=== PATIENT | male | born 1940 | race Caucasian/White ===

== ENCOUNTER → 2020-08-01 | Outpatient (CLI) | payer MEDICARE, BC ==
--- NOTE | 2020-08-02 00:04 | MR ---
EXAMINATION TYPE: MR iac wo/w con DATE OF EXAM: 08/01/2020 COMPARISON: 05/28/2017 HISTORY: Vertigo and dizziness CONTRAST: Standard multiplanar, multisequence MRI departmental protocol utilizing 7.0 mL intravenous Gadavist g adolinium contrast. Multiplanar multiecho imaging of the brain and posterior fossa was performed without and with IV cont rast. There is cerebral atrophy. There is no mass effect nor midline shift. There is no sign of intracrania l hemorrhage. There is some thinning of the corpus callosum. Brainstem appears intact. Diffusion imag es show no evidence of an acute infarct. On the T2 and FLAIR images there are scattered areas of incr eased signal at the cassidy-white matter junction of both cerebral hemispheres. Total number is approxim ately 20 and these measure up to 6 mm. This is likely chronic small vessel ischemia. Cerebellum is intact. Brainstem appears intact. There is 1 mm focus of increased signal in the ruba o n the right side on the FLAIR images. The internal auditory canals appear normal. There is no evidence of cerebellopontine angle mass. The acoustic nerve and vestibular nerves appear normal. The contrast images show no pathologic enhancemen t. IMPRESSION: Cerebral atrophy. White matter signal changes most likely related to chronic small vessel ischemia. N o evidence of a cortical infarct. No posterior fossa abnormality at the internal auditory canals. There is a single tiny focus of incre ased signal in the right side of the ruba that is probably tiny lacunar infarct.
== END | disposition home or self-care (01) ==
LOC: RADMRIMAIN 14:26
PROVIDERS: ATTEND Otolaryngology
DX: G31.9 Degenerative disease of nervous system, unspecified (principal); R90.82 White matter disease, unspecified; R93.0 Abnormal findings on diagnostic imaging of skull and head, not elsewhere classified
CPT/HCPCS: 70553; A9585

== ENCOUNTER → 2021-08-03 | Outpatient (CLI) | payer MEDICARE, BC ==
--- NOTE | 2021-08-04 07:20 | US ---
EXAMINATION TYPE: US carotid duplex BILAT DATE OF EXAM: 08/03/2021 COMPARISON: NONE CLINICAL HISTORY: R42 Dizziness. dizziness, headaches EXAM MEASUREMENTS: RIGHT: Peak Systolic Velocity (PSV) cm/sec ----- Right CCA: 103 ----- Right ICA: 157 ----- Right ECA: 174 ICA/CCA ratio: 1.5 RIGHT: End Diastole cm/sec ----- Right CCA: 16.4 ----- Right ICA: 20.5 ----- Right ECA: 0.0 LEFT: Peak Systolic Velocity (PSV) cm/sec ----- Left CCA: 126 ----- Left ICA: 152 ----- Left ECA: 105 ICA/CCA ratio: 1.2 LEFT: End Diastole cm/sec ----- Left CCA: 14.5 ----- Left ICA: 22.7 ----- Left ECA: 0.0 VERTEBRALS (direction of flow): Right Vertebral: Antegrade Left Vertebral: Antegrade Rhythm: Normal Mild to moderate plaque bilateral bifurcations. mildly increased velocities right ICA and right ECA a nd left ICA IMPRESSION: No evidence for hemodynamically significant stenosis. Criteria for Assigning % of Stenosis / Diameter reduction (Estimation based on the indirect measurements of the internal carotid artery velocities (ICA PSV). 1. Normal (no stenosis)=ICA PSV < 125 cm/s: ratio < 2.0: ICA EDV<40 cm/s. 2. Less than 50% stenosis=ICA PSV < 125 cm/s: ratio < 2.0: ICA EDV<40 cm/s. 3. 50 to 69% stenosis=ICA PSV of 125 to 230 cm/s: ration 2.0 ? 4.0: ICA EDV 40-100 cm/s. 4. Greater than 70% stenosis to near occlusion= ICA PSV > 230 cm/s: ratio > 4.0: ICA EDV > 100 cm/s. 5. Near occlusion= ICA PSV velocities may be low or undetectable: variable ratio and ICA EDV. 6. Total occlusion=unable to detect flow.
== END | disposition home or self-care (01) ==
LOC: RADUSWWP 15:40
PROVIDERS: ATTEND Internal Medicine Geriatric Medicine
DX: I65.23 Occlusion and stenosis of bilateral carotid arteries (principal)
CPT/HCPCS: 93880

== ENCOUNTER → 2023-03-22 | Outpatient (CLI) | payer MEDICARE, BC | END | disposition home or self-care (01) | LOC: LABWHC1 13:39 | PROVIDERS: ATTEND Orthopaedic Surgery | DX: Z01.812 Encounter for preprocedural laboratory examination (principal); S32.009A Unspecified fracture of unspecified lumbar vertebra, initial encounter for closed fracture; Z22.322 Carrier or suspected carrier of Methicillin resistant Staphylococcus aureus; X58.XXXA Exposure to other specified factors, initial encounter | CPT/HCPCS: 86850; 86900; 86901; 87070 ==

== ENCOUNTER 2023-03-29 12:10 | Day surgery (SDC) | payer MEDICARE, BC ==
--- NOTE | 2023-03-29 08:33 | P.HPOR ---
History of Present Illness H&P Date: 03/08/23 .D:Date: 02/22/23 : 10:09am .T:Title: [facility] Date of :[birth year] R14 Allergies: Age: 84 year Height: 5'11" Weight: 126 lbs BP:/ BMI: 17.57 kg/m2 Occupation: Retired VAS: 1 CHIEF COMPLAINT: Low back pain DOI: 01/31/23 DOS: n/a Duration of current treatment regiment: n/a HISTORY: Xrays New xrays taken in office Trauma or injury yes patient fell from step onto cement floor and garage at home Work-Related No Pain description aching, sharp. Location posterior Activity Modification yes Hand Dominance right TREATMENTS COMPLETED: 6 weeks of PT completed? Month and Year of last PT date? No Physician directed home exercise completed? No Medications yes List: Aleve Alternative interventions Chiropractic: No Massage therapy: No R.I.C.E: yes Brace: No Injections No RFA: No SUBJECTIVE: Ms. Read presents to the office for an evaluation of her low back pain. Patient reports an aching sharp lumbar pain ongoing for a couple weeks with an onset of 01/31/2023 after patient fell from a stair onto her cement floor and the garage at home. Patient denies any radicular symptoms or numbness or tingling to the bilateral lower extremities. Ms. Read's symptoms are exacerbated with prolonged ambulation, standing, and bending over. Patient reported as increasingly difficult for her to complete many of her daily tasks. Patient denies trialing any other treatment modalities at this time besides heat and ice therapies. Otherwise the patient denies any f/c/sob/cp, no bladder or bowel retention/incontinence, no perineal numbness/tingling, and ambulates independently. The patients' past social, medical, family, surgical history, as well as review of systems, have been reviewed. Please refer to the Neurosurgery History and Physical form that has been scanned in to our electronic medical record system. 14 points review of systems completed and as stated in HPI, all other systems reviewed are negative. Social History: Reviewed, see appropriate section of the chart for details. P3 Family History: Reviewed, see appropriate section of the chart for details. P2 Past Medical History: Reviewed, see appropriate section of the chart for details. P1 Current Medications: Rx: aspirin 81 mg tablet,delayed release Ref: 0 Instructions: take 1 tablet (81 mg) by oral route once daily Rx: biotin Ref: 0 Rx: hydroCHLOROthiazide 25 mg tablet Ref: 0 Instructions: take 1 tablet (25 mg) by oral route once daily Rx: metoprolol tartrate 50 mg tablet Ref: 0 Instructions: take 1 tablet (50 mg) by oral route 2 times per day with meals Rx: metoprolol tartrate 50 mg tablet Ref: 0 Instructions: take 1 tablet (50 mg) by oral route 2 times per day with meals Rx: Norvasc 2.5 mg tablet Ref: 0 Instructions: take 1 tablet (2.5 mg) by oral route once daily Rx: simvastatin 20 mg tablet Ref: 0 Instructions: take 1 tablet (20 mg) by oral route once daily in the evening Rx: Unisom PM Pain Ref: 0 Rx: Vitamin D2 Ref: 0 P1 PHYSICAL EXAMINATION: General: Awake, alert, appropriate for age, in no acute distress. HEENT: No unusual neck masses around region of lateral neck triangle, thyroid, supraclavicular groove Heart: Regular rate and rhythm, normal S1, S2 and no murmur/gallop. Lungs: Clear to auscultation bilaterally with no use of accessory muscles. Extremities: Skin warm and dry without acute lesions, coloration, temperature, skin intact, no tenderness or erythema Integument: Hairy patches: ABSENT Dorsal skin dimples: ABSENT Cafe au lait spots: ABSENT Surgical incisions: n/a Palpation: Please see Pain drawing on Intake sheet for further detail. Midline spinal tenderness: Yes, over the Lumbar region E6 Cervical Tenderness: No E6 Paralumbar tenderness: No E6 Parathoracic tenderness: No E6 Buttocks tenderness: No E6 Sacroilliac Tenderness: No POSTURAL and MUSCULO-SKELETAL EVALUATION: Coronal Balance: NEUTRAL Recumbent testing: Patient is able to lay flat on back Sagittal Balance: NEUTRAL Shoulder Profile: LEVEL Pelvic Girdle: LEVEL Neck ROM: UNRESTRICTED Lumbar ROM: RESTRICTED Shoulder ROM: Symmetrical Hip ROM: Symmetrical Knee ROM: Symmetrical Hands: Normal appearance, symmetrical Feet: Normal appearance, Symmetrical VASCULAR STATUS : LEFT RIGHT Wrist Pulses INTACT INTACT Pedal Pulses (Dors. pedis & post.tibialis) INTACT INTACT Color NORMAL NORMAL Edema Absent Absent NEUROLOGIC EXAMINATION: Mental Status:Awake and alert, fully oriented, with normal attention, concentration and memory, and fluent, appropriate speech. Cranial Nerves: I: Olfactory not tested. II: Visual acuity normal, no visual field deficit noted with confrontation. III,IV: Normal pupillary reflexes & intact extraocular movements without nystagmus. V,: Intact symmetrical facial sensation. VII: Intact symmetrical facial motor movement VIII: Hearing intact. IX,X: Intact gag, swallow, & normal voice. XI: Sternocleidomastoid, trapezius function intact. XII: Tongue midline with normal movements. L'hermitte's Sign: Negative / absent Spurling'Sign: Absent bilaterally. Cubital percussion test: Absent bilaterally. Canales-Tinel sign - Carpal region: Absent bilaterally. Straight Leg Raising: Absent bilaterally. Crossed straight leg raise: negative O8 MOTOR EXAM (0-5/5, N/T Muscle appearance: Symmetrical, without signs of atrophy or dystrophy UPPER EXTREMITY RIGHT LEFT Shoulder Abduction 5/5 5/5 Biceps 5/5 5/5 Triceps 5/5 5/5 Wrist Extension 5/5 5/5 Hand Intrnsics 5/5 5/5 Senior Clinical Consultant 5/5 5/5 Hand and finger dexterity intact bilaterally? yes LOWER EXTREMITY RIGHT LEFT Hip Flexion 5/5 5/5 Knee Extension 5/5 5/5 Knee Flexion 5/5 5/5 Dorsiflexion 5/5 5/5 Plantarflexion 5/5 5/5 EHL 5/5 5/5 FHL 5/5 5/5 Toe heel walk / heel-toe walk intact while maintaining satisfactory balance? yes Squatting/straightening w/o assistance to a min of 60 degree knee flexion? yes Single leg stance: intact Trendelenburg sign negative bilaterally REFLEXES(0-4/2, NT)Upper Ext remityLower Extremity Right 2 2 Left 2 2 Pathological Reflexes RIGHT LEFT Canales's Absent Absent Clonus Absent Absent Babinski Absent Absent Sensory system (0-4, N/T) Test type RU LEONEL RL LL Joint-Position 2 2 2 2 Vibration 2 2 2 2 Pain & LT sense 2 2 2 2 Dermatomal Deficit: None None None None Gait and Functional Evaluation: Ambulatory aids: Independent Romberg's test: Intact bilaterally Steady Gait RADIOGRAPHIC STUDIES: XRay Lumbar Multiview (AP, Lateral, Flexion, Extension) with AP pelvis; 5 views taken at [facility] on 02/22/23: moderate spondylitic and degenerative changes with flattening of the normal lordosis. Multilevel diminished disc height. L3 compression fracture of the superior endplate. Remaining vertebral body heights are preserved. Pelvis: The visualized sacrum and iliac wings are within normal limits. Bilateral hip osteoarthritis noted. [facility] of LumbarSpine: 1. There appears to be fracture involving the anterior superior endplate of L3 with mild superior endplate bone marrow edema. 2. Mild trilevel degenerative disc disease. 3. Central stenosis at L2-3 and left lateral recess stenosis at L3-4. IMPRESSION: It was my pleasure to have seen and examined Dory. I reviewed the patient's clinical syndrome, physical findings, and imaging studies during the appointment today. It is my impression that the patient has a diagnosis of. 1. Lumbar spondylosis 2.L3 compression fracture 3. Mechanical low back pain I outlined the natural course history without intervention and various interventional options. PLAN: Based on my findings I suggest the following course of action: I discussed treatment options with the patient, including operative and non- operative options, and they have elected to proceed with the following surgical procedure: L3 Kyphoplasty The indications, risks, benefits, and alternatives to surgery were discussed with the patient and family at length. Specifically (but not limited to) the risks of infection, stiffness, recurrence of symptoms, need for revision surgery, local numbness, neurovascular injury, and blood clots were discussed. The patient's questions were answered.The decision to proceed was made. Consent will be obtained for the procedure. -Ambulate daily -Take medications as directed -Ice and rest for pain and swelling control. Follow-up: Post procedure Patient Education: (Informational booklet, instructions, etc) given at today's appointment: Yes .ED:Patient Education: Y Plan at next visit:Review patient progress Medications Reviewed: YES In our visit today Ms. Read and I have had a chance to go over my understanding of the patient's current condition, the natural course history without intervention and various interventional options. Questions were invited and answered, and the patient wishes to proceed as outlined above. I will be sure to keep you updated afterMs. Read returns here for further follow-up. Thank you again for your referral. Please do not hesitate to contact me if you have any further questions. Signed and authenticated by: Hamida Gallo MSN, PHOTOGRAPHIC EQUIPMENT ASSEMBLER-C [facility]im[facility] [address] [place] [address] [address] This message is confidential, intended only for the named recipient(s) and may contain information that is privileged or exempt from disclosure under applicable law. If you are not the intended recipient(s), you are notified that the dissemination, distribution or copying of this information is strictly prohibited. If you received this message in error, please notify the sender then delete this message. #Orders: Xray Pelvis #Orders: XrayLumbar Spine, 3v # SIGNED BY Hamida Gallo, SABRA, Nurse Practitioner (STO)03/05/2023 01:41P Past Medical History Past Medical History: Cancer, COPD, GERD/Reflux, Hyperlipidemia, Hypertension, Myocardial Infarction (AR), Osteoarthritis (OA), Thyroid Disorder Additional Past Medical History / Comment(s): colitis , protacatits,skin cancer Last Myocardial Infarction Date:: 2020 History of Any Multi-Drug Resistant Organisms: None Reported Past Surgical History: Appendectomy Additional Past Surgical History / Comment(s): detacted retina rt ,colonoscopy with polyps removed, Past Anesthesia/Blood Transfusion Reactions: No Reported Reaction Smoking Status: Former smoker - Past Family History Brother(s) Family Medical History: Cancer Additional Family Medical History / Comment(s): prostate Medications and Allergies Home Medications Medication Instructions Recorded Confirmed Type Albuterol Nebulized (Conc) 2.5 mg INHALATION Q6H 03/22/23 03/22/23 History [Ventolin Nebulized (Conc)] Albuterol Sulfate [Ventolin HFA] 2 inhalation INHALATION Q4-6H PRN 03/22/23 03/22/23 History Aspirin [Adult Low Dose Aspirin EC] 81 mg PO DAILY 03/22/23 03/22/23 History B-12 (Unk) 1 tab PO DAILY 03/22/23 03/22/23 History Baclofen 10 mg PO TID 03/22/23 03/22/23 History Bumetanide 1 mg PO DAILY 03/22/23 03/22/23 History Clopidogrel [Plavix] 75 mg PO DAILY 03/22/23 03/22/23 History Fluticasone Propionate 1 sprays EA NOSTRIL DAILY 03/22/23 03/22/23 History [Fluticasone Propionate Gonzales 50 mcg Nasal Gonzales] Fluticasone/Umeclidin/Vilanter 1 puff INHALATION DAILY 03/22/23 03/22/23 History [Trelegy Ellipta 200-62.5-25] Folic Acid 1 mg PO DAILY 03/22/23 03/22/23 History HYDROcodone/APAP 5-325MG [Mccune 1 tab PO Q6H 03/22/23 03/22/23 History 5-325] Levothyroxine Sodium [Synthroid] 50 mcg PO DAILY 03/22/23 03/22/23 History Meclizine [Antivert] 25 mg PO BID PRN 03/22/23 03/22/23 History Metoprolol Succinate (ER) [Toprol 100 mg PO DAILY 03/22/23 03/22/23 History Xl] Multivitamins, Thera [Multivitamin 1 tab PO DAILY 03/22/23 03/22/23 History (formulary)] [place](Unk) 1 tab PO DAILY 03/22/23 03/22/23 History Omeprazole 20 mg PO DAILY 03/22/23 03/22/23 History Omeprazole 20 mg PO DAILY 03/22/23 03/22/23 History Potassium Chloride [Klor-Con 10 ER] 1 tab PO DAILY 03/22/23 03/22/23 History Rosuvastatin Calcium 20 mg PO Q48H 03/22/23 03/22/23 History Ubidecarenone [Co Q-10] 30 mg PO DAILY 03/22/23 03/22/23 History Valsartan 320 mg PO DAILY 03/22/23 03/22/23 History Vit D3(Unk) 1 tab PO DAILY 03/22/23 03/22/23 History sulfaSALAzine [Sulfasalazine] 1,000 mg PO BID 03/22/23 03/22/23 History Allergies Allergy/AdvReac Type Severity Reaction Status Date / Time No Known Allergies Allergy Verified 03/22/23 11:42 Physical Examination Osteopathic Statement: *. No significant issues noted on an osteopathic structural exam other than those noted in the History and Physical/Consult.
[~2023-03-29 12:10] MED LIST: ACETAMINOPHEN TAB 500 MG TAB PO PRN; DEXAMETHASONE SOD PHOSPHATE 4 MG/ML 1 ML VIAL IV ONE; GABAPENTIN 300 MG CAP PO PRN; LIDOCAINE 1% (10MG/ML) FOR IV START INTRADERMA PRN; ONDANSETRON 4 MG/2 ML VIAL IVP ONE; ONDANSETRON 4 MG/2 ML VIAL IVP PRN; TRANEXAMIC 1,000 MG/100ML-NACL 1,000 MG in SALINE 1 100ML.BAG IVPB PRN; fentaNYL (PF) 50 MCG/ML 2 ML AMP IV PRN
[2023-03-29] MEDS: LACTATED RINGERS 1,000 ML IV SCH (14:05)
[2023-03-29] MEDS ORDERED: hydrALAZINE HCL 20 MG/ML 1 ML VIAL IVP ONE (14:15)
[2023-03-29] MEDS ORDERED: LIDOCAINE 1% INJ 10MG/ML (20 ML MDV) ONE (14:35)
[2023-03-29] MEDS ORDERED: TRANEXAMIC 1,000 MG/100ML-NACL PREMIX BAG ONE (14:35)
[2023-03-29] MEDS ORDERED: SUCCINYLCHOLINE CHLORIDE 200 MG/10 ML VIAL IV ONE (14:35)
[2023-03-29] MEDS ORDERED: fentaNYL (PF) 50 MCG/ML 2 ML AMP ONE (14:35)
[2023-03-29] MEDS ORDERED: PHENYLEPHRINE-0.9% NACL SYG 1,000 MCG/10 ML SYRINGE ONE (14:35)
[2023-03-29] MEDS ORDERED: PROPOFOL 10 MG/ML 20 ML VIAL IV ONE (14:35)
[2023-03-29] MEDS ORDERED: BUPIVACAINE (PF) 0.25% 30 ML VIAL SQ ONE ×3 (14:42→14:55)
[2023-03-29] MEDS ORDERED: IOPAMIDOL M200 10 ML VIAL MISCELLANE ONE ×2 (14:42→14:55)
--- NOTE | 2023-03-29 15:20 | XR ---
Fluoroscopy History: S32.010A L1 VERTEBRAL COMPRESSION FRACTURE L1 Kyphoplasty. 27 secs. 3 images. DAP=1.2221 Dr. Riddle
--- NOTE | 2023-03-29 15:27 | P.OP ---
Date of Procedure: 03/29/23 Preoperative Diagnosis: 1. L1 vertebral compression fracture 40% compressed 2. Low back pain Postoperative Diagnosis: 1. L1 vertebral compression fracture 40% compressed 2. Low back pain Procedure(s) Performed: 1. L1 vertebral body biopsy with kyphoplasty. Implants: Kemar cement Anesthesia: GETA Surgeon: Massimo Riddle Cupboard Builder #1: Blayne Nunez (CHER Van Was present and assisted with all aspects of the case from positioning to dressing placement) Estimated Blood Loss (ml): 2 IV fluids (ml): 100 Urine output (ml): 0 Pathology: none sent Condition: stable Disposition: PACU Indications for Procedure: 9-year-old male presents with complaints of low back pain after fall. He continues to have low back pain despite conservative treatment. His fund of an L1 vertebral compression fractures 4% compressed with kyphosis. Discussed different nonsurgical and surgical options for the patient. At this time the patient would like to undergo surgical option of kyphoplasty with biopsy. There says risks and benefits of the procedure as outlined in the risk reviewed. He understands the risks and benefits surgery itself. He denies any fevers chills shortness breath or chest pain denies any other issues at this time states he is ready and willing to proceed with the surgery. Description of Procedure: Lumbar (1) Kyphoplasty The patient was seen and examined in the preoperative area. All preoperative protocols were followed. Informed consent was obtained, risks and benefits of the procedure were discussed at length. Risks including bleeding infection damage to the surrounding tissue and risk of reoperation were discussed with the patient. Risk of anesthesia up to and including was discussed with the patient. These are outlined in the risk review. They were willing to accept these risks and all the risks of surgery. The patient was given a weight-based dose of antibiotics in the form of 2 g Ancef. The patient was seen and evaluated by the anesthesia team who deemed them fit for surgery. The site was marked, the patient was willing to proceed with the procedure. The patient was transferred to the operative suite by the Department of anesthesia. They were then drifted off to sleep by the department anesthesia and GETA was performed. The patient tolerated this well. Once confirmation of lines and ventilation the patient was transferred to a prone Simón table very carefully. All bony prominences including wrists, elbows, axilla, chest, hips, and thighs, and feet were padded very well. Special attention was paid to the genitalia, and these were padded accordingly. SCDs were placed on bilateral lower extremities and were connected. Arms were well padded and placed on arm boards up and out in the 90/90 position. Once in position, again we confirmed good ventilation capabilities and that lines were running appropriately. The patients Lumbar spine was then exposed. 1010s were placed outlining the incision site. Standard alcohol was used to clean the incision site and allowed to dry. C-arm was used to needle localize the pedicles at L1 and bio-ngozi the patient and confirm level for incision which was marked with a skin marker. Operative briefing was performed with all teams and everyone in agreement to proceed. The patient was then prepped and draped in a normal sterile fashion. Timeout was then performed, and all parties agreed with the procedure to be performed. Skin segun was made. Jamshitdi was passed into the L1 vertebral body via the pedicle. This was done with biplane fluoroscopy. Once in good position in the body the trochar is removed. Biopsy needle was passed into the body and a biopsy was taken. Drill was then passed and biopsy material taken from drill as well. Curette then used to reduce endplate and create more space. Balloon was then passed an inflated which showed good reduction of endplate on AP and Lateral and confirmed central placement. The cement was then placed and pt remained stable. Good fill of cement was seen without extravasation. Once good fill, the Jamshedi was removed and the wound irrigated. The skin was closed with a simple stitch and dressed with a bandaid. The patient was then transferred off the table back to their hospital bed a- traumatically. They were extubated by the department of anesthesia. They were then transferred to PACU in stable condition having tolerated the procedure with no complications.
--- NOTE | 2023-03-29 16:34 | FL ---
Intraoperative/procedural fluoroscopic services were provided for lumbar L1 kyphoplasty. Total fluoro scopy time is 27 seconds with a total of 3 submitted images to PACS. Total DAP 1.2221 Gycm2. Please see the operative note for further details.
--- NOTE | 2023-03-29 17:35 | P.CRDCN ---
History of Present Illness Consult date: 03/29/23 History of present illness: Cardiology was requested to evaluate the patient on urgent basis postoperatively. Patient is a 83-year-old male who underwent kyphoplasty. Postoperatively an ECG was performed with concerns of possible ST elevations in inferior lead. On my detailed review of ECG he is in sinus rhythm with Q waves in inferior leads and evolving ST changes in inferior leads. These changes are most likely reflective of prior inferior wall MD with possible small aneurysm or dyskinetic inferior wall. 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 He is known to Dr. Mancia. At this time patient is not having any active chest pain chest pressure. He denies any pain is most chin. I feel that patient is not having any acute MD at this time. I would agree with the decision of getting this patient admitted for overnight observation. Obtain CBC, BMP, troponins Past Medical History Past Medical History: Cancer, COPD, GERD/Reflux, Hyperlipidemia, Hypertension, Myocardial Infarction ([place]), Osteoarthritis (OA), Thyroid Disorder Additional Past Medical History / Comment(s): colitis , protacatits,skin cancer Last Myocardial Infarction Date:: 2020 History of Any Multi-Drug Resistant Organisms: None Reported Past Surgical History: Appendectomy Additional Past Surgical History / Comment(s): detacted retina rt ,colonoscopy with polyps removed, Past Anesthesia/Blood Transfusion Reactions: No Reported Reaction Smoking Status: Former smoker - Past Family History Brother(s) Family Medical History: Cancer Additional Family Medical History / Comment(s): prostate Medications and Allergies Home Medications Medication Instructions Recorded Confirmed Type Albuterol Nebulized (Conc) 2.5 mg INHALATION Q6H 03/22/23 03/22/23 History [Ventolin Nebulized (Conc)] Albuterol Sulfate [Ventolin HFA] 2 inhalation INHALATION Q4-6H PRN 03/22/23 History Aspirin [Adult Low Dose Aspirin EC] 81 mg PO DAILY 03/22/23 03/22/23 History B-12 (Unk) 1 tab PO DAILY 03/22/23 03/22/23 History Baclofen 10 mg PO TID 03/22/23 03/22/23 History Bumetanide 1 mg PO DAILY 03/22/23 03/22/23 History Clopidogrel [Plavix] 75 mg PO DAILY 03/22/23 03/22/23 History Fluticasone Propionate 1 sprays EA NOSTRIL DAILY 03/22/23 03/22/23 History [Fluticasone Propionate [place] 50 mcg Nasal [place]] Fluticasone/Umeclidin/Vilanter 1 puff INHALATION DAILY 03/22/23 03/22/23 History [Trelegy Ellipta 200-62.5-25] Folic Acid 1 mg PO DAILY 03/22/23 03/22/23 History HYDROcodone/APAP 5-325MG [[place] 1 tab PO Q6H 03/22/23 03/22/23 History 5-325] Levothyroxine Sodium [Synthroid] 50 mcg PO DAILY 03/22/23 03/22/23 History Meclizine [Antivert] 25 mg PO BID PRN 03/22/23 03/22/23 History Metoprolol Succinate (ER) [Toprol 100 mg PO DAILY 03/22/23 03/22/23 History Xl] Multivitamins, Thera [Multivitamin 1 tab PO DAILY 03/22/23 03/22/23 History (formulary)] [place](Unk) 1 tab PO DAILY 03/22/23 03/22/23 History Omeprazole 20 mg PO DAILY 03/22/23 03/22/23 History Omeprazole 20 mg PO DAILY 03/22/23 03/22/23 History Potassium Chloride [Klor-Con 10 ER] 1 tab PO DAILY 03/22/23 03/22/23 History Rosuvastatin Calcium 20 mg PO Q48H 03/22/23 03/22/23 History Ubidecarenone [Co Q-10] 30 mg PO DAILY 03/22/23 03/22/23 History Valsartan 320 mg PO DAILY 03/22/23 03/22/23 History Vit D3(Unk) 1 tab PO DAILY 03/22/23 03/22/23 History sulfaSALAzine [Sulfasalazine] 1,000 mg PO BID 03/22/23 03/22/23 History HYDROcodone/APAP 7.5-325MG [[place] 1 tab PO Q6HR PRN #12 tab 03/29/23 Rx 7.5-325] Allergies Allergy/AdvReac Type Severity Reaction Status Date / Time No Known Allergies Allergy Verified 03/22/23 11:42 Physical Exam Vitals: Vital Signs Temp Pulse Resp BP BP BP Pulse Ox 03/29/23 16:46 74 16 145/67 93 L 03/29/23 16:31 87 16 119/74 95 03/29/23 16:01 80 16 141/62 93 L 03/29/23 15:44 79 16 140/65 94 L 03/29/23 15:29 79 16 148/67 92 L 03/29/23 15:14 83 14 173/79 94 L 03/29/23 14:20 72 20 164/72 94 L 03/29/23 14:04 212/92 03/29/23 13:40 97.9 F 71 20 212/94 95 Intake and Output 03/29/23 03/29/23 03/29/23 06:59 14:59 22:59 Intake Total 350 100 Balance 350 100 Intake: IV 350 100 Other: Weight 72.7 kg Results Current Medications Generic Name Dose Route Start Last Admin Trade Name Freq PRN Reason Stop Dose Admin Fentanyl Citrate 50 mcg 03/29/23 07:00 Fentanyl (Pf) 50 Mcg/Ml 2 Ml Amp IV 03/29/23 23:00 Q3M PRN Phase I - Pain Control Tranexamic Acid/Sodium 100 mls @ 200 mls/hr 03/29/23 05:00 Chloride 1,000 mg/ IV Solution IVPB 03/30/23 00:01 ONCE PRN Pre-Op Tranexamic Acid/Sodium 100 mls @ 200 mls/hr 03/29/23 05:00 Chloride 1,000 mg/ IV Solution IVPB 03/30/23 00:01 ONCE PRN Pre-Op Lactated Ringer's 1,000 mls @ 20 mls/hr 03/29/23 05:55 03/29/23 14:05 Lactated Ringers IV 04/28/23 05:56 400 mls .Q24H EDIS Administration Lidocaine HCl 0.1 ml 03/29/23 05:55 Lidocaine 1% (10mg/Ml) For Iv Start INTRADERMA 04/28/23 05:56 PER PROTOCOL PRN IV Start Ondansetron HCl 4 mg 03/29/23 07:00 Ondansetron 4 Mg/2 Ml Vial IVP 03/29/23 23:00 ONCE PRN Phase 1 or 2 - Nausea/Vomiting Intake and Output 03/29/23 03/29/23 03/29/23 06:59 14:59 22:59 Intake Total 350 100 Balance 350 100 Intake: IV 350 100 Other: Weight 72.7 kg Patient Weight 03/30/23 06:59 Weight 72.7 kg
[2023-03-29] MEDS ORDERED: FAMOTIDINE 20 MG/2 ML VIAL IVP ONE (17:45)
[2023-03-29 18:01] LABS: Basophils % (A) 0 %; Eosinophils # (A) 0.1 k/uL (0-0.7); Eosinophils % (A) 1 %; HCT 45.7 % (39.0-53.0); HGB 14.7 gm/dL (13.0-17.5); Lymphocytes # (A) 0.5 k/uL (1.0-4.8); Lymphocytes % (A) 7 %; MCH 32.9 pg (25.0-35.0); MCHC 32.3 g/dL (31.0-37.0); Macrocytosis Slight; Mean Platelet Volume 10.9; Monocytes # (A) 0.1 k/uL (0-1.0); Monocytes % (A) 2 %; Neutrophils # (A) 7.2 k/uL (1.3-7.7); Neutrophils % (A) 90 %; Platelet Count 153 k/uL (150-450); RBC 4.48 m/uL (4.30-5.90); RDW 13.4 % (11.5-15.5)
[2023-03-29] MEDS ORDERED: HYDROcodone/APAP 7.5-325MG 1 EACH TAB ONE (18:02)
[2023-03-29] MEDS ORDERED: HYDROcodone/APAP 7.5-325MG 1 EACH TAB PO ONE (18:04)
[2023-03-29 19:43] LABS: ALT 25 U/L (4-49); AST 40 U/L (17-59); African American GFR (CKD) >90 (>60 ml/min/1.73 sqM); Albumin/Globulin Ratio 1.5; Alkaline Phosphatase 83 U/L (38-126); Anion Gap 11 mmol/L; Blood Urea Nitrogen 14 mg/dL (9-20); Calcium 9.2 mg/dL (8.4-10.2); Carbon Dioxide 21 mmol/L (22-30); Chloride 105 mmol/L (98-107); Globulin 2.7 g/dL; Glucose 242 mg/dL (74-99); Non-African American GFR(CKD) >90 (>60 ml/min/1.73 sqM); Potassium 3.9 mmol/L (3.5-5.1); Sodium 137 mmol/L (137-145); Total Bilirubin 0.5 mg/dL (0.2-1.3); Total Protein 6.7 g/dL (6.3-8.2)
[2023-03-29] MEDS ORDERED: MECLIZINE 25 MG TAB PO PRN (20:01)
[2023-03-29] MEDS ORDERED: ALBUTEROL NEBULIZED 2.5 MG/3 ML INHALATION PRN (20:01)
[2023-03-29] MEDS: BACLOFEN 10 MG TAB PO SCH (21:35)
[2023-03-30] MEDS: ALBUTEROL NEBULIZED 2.5 MG/3 ML INHALATION SCH ×4 (01:14→19:12)
[2023-03-30] MEDS: LACTATED RINGERS 1,000 ML IV SCH (06:09)
[2023-03-30] MEDS: LEVOTHYROXINE 50 MCG TAB PO SCH (06:13)
[2023-03-30 07:44] LABS: HGB 13.8 gm/dL (13.0-17.5); MCH 33.7 pg (25.0-35.0); MCHC 32.8 g/dL (31.0-37.0); MCV 102.5 fL (80.0-100.0); Macrocytosis Slight; Mean Platelet Volume 9.8; Platelet Count 160 k/uL (150-450); RDW 13.4 % (11.5-15.5); WBC 8.5 k/uL (3.8-10.6)
[2023-03-30] MEDS ORDERED: LORazepam 2 MG/ML INJ IV PRN (07:53)
[2023-03-30 07:56] LABS: African American GFR (CKD) >90 (>60 ml/min/1.73 sqM); Anion Gap 8 mmol/L; Blood Urea Nitrogen 15 mg/dL (9-20); Calcium 8.8 mg/dL (8.4-10.2); Carbon Dioxide 22 mmol/L (22-30); Chloride 108 mmol/L (98-107); Glucose 93 mg/dL (74-99); Non-African American GFR(CKD) 80 (>60 ml/min/1.73 sqM); Sodium 138 mmol/L (137-145)
--- NOTE | 2023-03-30 07:59 | P.HPIM ---
History of Present Illness This is a pleasant 83 years old male with past medical history of COPD, GERD/Reflux, Hyperlipidemia, Hypertension, Osteoarthritis , hypothyroidism, history of prostatitis He was admitted yesterday from outpatient for orthopedic procedure with Dr. Riddle service and patient underwent L1 vertebral body biopsy with kyphoplasty for L1 vertebral compression fracture with low back pain. Today is postoperative day #1 This morning patient was lying in bed comfortable. He states that he fell on his back about one month earlier and he had a compression fracture of L1, Versed was trying to treat it conservatively but that failed and required surgical intervention with kyphoplasty. After the procedure patient started developing left arm pain about 5/10 and mild central chest pain about 4/10 in severity, both pain areas lasted for about 2 hours and now he denies any chest pain no abdominal or epigastric pain, no arm pain. Also patient denies dyspnea coughing. No vomiting or diarrhea, no urinary symptoms, he had mild headache but no dizziness weakness or numbness. However patient developed transient cramping in both He used to smoke and quit about 45 years ago. He drinks wine 1-2 cups every night. No illicit drugs Patient follows up with Dr. Mancia. He states he had a heart attack about 2 years ago at that time he was placed on Plavix while he was taking baby aspirin 81 mg before. He stopped aspirin Plavix about 7 days prior to surgery. Patient is afebrile, vital signs stable Patient has unremarkable CBC, BMP, liver enzymes. Troponin first one was -0.02, repeat troponin was elevated 0.10. Glucose high at 242 Review of Systems Review of systems CONSTITUTIONAL: No fever, no malaise, no fatigue. HEENT: No recent visual problems or hearing problems. Denied any sore throat. CARDIOVASCULAR: No orthopnea, PND, no palpitations, no syncope. PULMONARY: No shortness of breath, no cough, no hemoptysis. GASTROINTESTINAL: No diarrhea, no nausea, no vomiting, no abdominal pain. Normoactive bowel sounds. NEUROLOGICAL: No headaches, no weakness, no numbness. HEMATOLOGICAL: Denies any bleeding or petechiae. GENITOURINARY: Denies any burning micturition, frequency, or urgency. MUSCULOSKELETAL/RHEUMATOLOGICAL: Denies any joint pain, swelling, or any muscle pain. ENDOCRINE: Denies any polyuria or polydipsia. Past Medical History Past Medical History: Cancer, COPD, GERD/Reflux, Hyperlipidemia, Hypertension, Myocardial Infarction ([place]), Osteoarthritis (OA), Thyroid Disorder Additional Past Medical History / Comment(s): colitis , protacatits,skin cancer Last Myocardial Infarction Date:: 2020 History of Any Multi-Drug Resistant Organisms: None Reported Past Surgical History: Appendectomy Additional Past Surgical History / Comment(s): detacted retina rt ,colonoscopy with polyps removed, Past Anesthesia/Blood Transfusion Reactions: No Reported Reaction Past Psychological History: No Psychological Hx Reported Smoking Status: Former smoker Past Alcohol Use History: Occasional Additional Past Alcohol Use History / Comment(s): quit 45 yrs ago, 2 glasses of wine daily,occasional beer Past Drug Use History: None Reported - Past Family History Brother(s) Family Medical History: Cancer Additional Family Medical History / Comment(s): prostate Medications and Allergies Home Medications Medication Instructions Recorded Confirmed Type Albuterol Nebulized (Conc) 2.5 mg INHALATION Q6H 03/22/23 03/22/23 History [Ventolin Nebulized (Conc)] Albuterol Sulfate [Ventolin HFA] 2 inhalation INHALATION Q4-6H PRN 03/22/23 03/22/23 History Aspirin [Adult Low Dose Aspirin EC] 81 mg PO DAILY 03/22/23 03/22/23 History B-12 (Unk) 1 tab PO DAILY 03/22/23 03/22/23 History Baclofen 10 mg PO TID 03/22/23 03/22/23 History Bumetanide 1 mg PO DAILY 03/22/23 03/22/23 History Clopidogrel [Plavix] 75 mg PO DAILY 03/22/23 03/22/23 History Fluticasone Propionate 1 sprays EA NOSTRIL DAILY 03/22/23 03/22/23 History [Fluticasone Propionate [place] 50 mcg Nasal [place]] Fluticasone/Umeclidin/Vilanter 1 puff INHALATION DAILY 03/22/23 03/22/23 History [Trelegy Ellipta 200-62.5-25] Folic Acid 1 mg PO DAILY 03/22/23 03/22/23 History HYDROcodone/APAP 5-325MG [[place] 1 tab PO Q6H 03/22/23 03/22/23 History 5-325] Levothyroxine Sodium [Synthroid] 50 mcg PO DAILY 03/22/23 03/22/23 History Meclizine [Antivert] 25 mg PO BID PRN 03/22/23 03/22/23 History Metoprolol Succinate (ER) [Toprol 100 mg PO DAILY 03/22/23 03/22/23 History Xl] Multivitamins, Thera [Multivitamin 1 tab PO DAILY 03/22/23 03/22/23 History (formulary)] [place](Unk) 1 tab PO DAILY 03/22/23 03/22/23 History Omeprazole 20 mg PO DAILY 03/22/23 03/22/23 History Omeprazole 20 mg PO DAILY 03/22/23 03/22/23 History Potassium Chloride [Klor-Con 10 ER] 1 tab PO DAILY 03/22/23 03/22/23 History Rosuvastatin Calcium 20 mg PO Q48H 03/22/23 03/22/23 History Ubidecarenone [Co Q-10] 30 mg PO DAILY 03/22/23 03/22/23 History Valsartan 320 mg PO DAILY 03/22/23 03/22/23 History Vit D3(Unk) 1 tab PO DAILY 03/22/23 03/22/23 History sulfaSALAzine [Sulfasalazine] 1,000 mg PO BID 03/22/23 03/22/23 History HYDROcodone/APAP 7.5-325MG [[place] 1 tab PO Q6HR PRN #12 tab 03/29/23 Rx 7.5-325] Allergies Allergy/AdvReac Type Severity Reaction Status Date / Time No Known Allergies Allergy Verified 03/22/23 11:42 Physical Exam Vitals: Vital Signs Temp Pulse Pulse Resp BP BP BP 03/30/23 02:00 98.0 F 71 20 121/62 03/30/23 01:23 72 03/30/23 01:16 74 03/29/23 22:00 74 18 112/58 03/29/23 21:35 83 03/29/23 21:19 68 110/56 03/29/23 21:00 68 20 109/56 03/29/23 20:19 76 114/63 03/29/23 20:00 76 22 109/56 03/29/23 19:50 84 113/57 03/29/23 19:30 84 22 113/57 03/29/23 19:20 79 120/56 03/29/23 19:04 80 114/66 03/29/23 19:00 82 20 114/66 03/29/23 18:49 80 132/62 03/29/23 18:45 80 20 132/62 03/29/23 18:30 83 127/61 03/29/23 18:15 98.2 F 83 20 150/69 03/29/23 18:00 75 18 147/64 03/29/23 17:15 82 16 149/69 03/29/23 16:46 74 16 145/67 03/29/23 16:31 87 16 119/74 03/29/23 16:01 80 16 141/62 03/29/23 15:44 79 16 140/65 03/29/23 15:29 79 16 148/67 03/29/23 15:14 83 14 173/79 03/29/23 14:20 72 20 164/72 03/29/23 14:04 212/92 03/29/23 13:40 97.9 F 71 20 212/94 Pulse Ox 03/30/23 02:00 95 03/30/23 01:23 03/30/23 01:16 03/29/23 22:00 03/29/23 21:35 03/29/23 21:19 91 L 03/29/23 21:00 91 L 03/29/23 20:19 92 L 03/29/23 20:00 92 L 03/29/23 19:50 91 L 03/29/23 19:30 91 L 03/29/23 19:20 92 L 03/29/23 19:04 90 L 03/29/23 19:00 90 L 03/29/23 18:49 90 L 03/29/23 18:45 90 L 03/29/23 18:30 92 L 03/29/23 18:15 93 L 03/29/23 18:00 94 L 03/29/23 17:15 93 L 03/29/23 16:46 93 L 03/29/23 16:31 95 03/29/23 16:01 93 L 03/29/23 15:44 94 L 03/29/23 15:29 92 L 03/29/23 15:14 94 L 03/29/23 14:20 94 L 03/29/23 14:04 03/29/23 13:40 95 Intake and Output 03/29/23 03/29/23 03/30/23 14:59 22:59 06:59 Intake Total 350 150 0 Output Total 100 Balance 350 150 -100 Intake: IV 350 150 Oral 0 Output: Urine 100 Other: Voiding Method Toilet # Voids 2 Weight 72.7 kg 72.7 kg GENERAL: The patient is alert and oriented x3, not in any acute distress. Well developed, well nourished. HEENT: Pupils are round and equally reacting to light. EOMI. No scleral icterus. No conjunctival pallor. Normocephalic, atraumatic. No pharyngeal erythema. No thyromegaly. CARDIOVASCULAR: S1 and S2 present. No murmurs, rubs, or gallops. PULMONARY: Chest is clear to auscultation, no wheezing , no crackles. ABDOMEN: Soft, nontender, nondistended, normoactive bowel sounds. No palpable organomegaly. MUSCULOSKELETAL: No joint swelling or deformity. EXTREMITIES: No cyanosis, clubbing, or pedal edema. NEUROLOGICAL: Gross neurological examination did not reveal any focal deficits. SKIN: No rashes. no petechiae. Results CBC & Chem 7: 03/30/23 07:28 03/29/23 18:56 Labs: Abnormal Lab Results - Last 24 Hours (Table) 03/29/23 03/29/23 03/29/23 Range/Units 17:49 18:56 22:01 MCV 102.0 H (80.0-100.0) fL Lymphocytes # 0.5 L (1.0-4.8) k/uL Carbon Dioxide 21 L (22-30) mmol/L Creatinine 0.65 L (0.66-1.25) mg/dL Glucose 242 H (74-99) mg/dL Troponin I 0.106 H* (0.000-0.034) ng/mL Thrombosis Risk Factor Assmnt - Choose All That Apply Any of the Below Risk Factors Present?: Yes Each Factor Represents 1 point: Abnormal pulmonary function (COPD) Other Risk Factors: Yes Each Risk Factor Represents 3 Points: Age 75 years or older Other congenital or acquired thrombophilia - If yes, enter type in comment: No Thrombosis Risk Factor Assessment Total Risk Factor Score: 4 Thrombosis Risk Factor Assessment Level: Moderate Risk Assessment and Plan Assessment: Postoperative chest pain with mildly elevated troponin L1 vertebral compression fracture with low back pain following trauma one month earlier, status post kyphoplasty on 03/29 Elevated glucose, present admission. Check hemoglobin A1c To rule out diabetes mellitus Mild bilateral leg cramping, resolved Plan: Continue monitoring for troponin Check echocardiogram continue with pain management Cardiology consult Orthopedic team consult Patient on aspirin Plavix at home which can be resumed once cleared by surgery, also we will defer the need for antiplatelet medication to cardiology team Labs and medication were reviewed.. Continue same treatment. Continue with symptomatic treatment. Resume home medication. Monitor labs and vitals. DVT and GI prophylaxis. Further recommendations as per clinical course of the patient DVT prophylaxis: SCD, avoid anticoagulation until cleared by surgery team GI Prophylaxis: Pepcid PT/OT: Pending Prognosis is guarded
[2023-03-30] MEDS: SYMBICORT 80-4.5 MCG INHALER INHALATION SCH ×2 (08:44→19:13)
[2023-03-30] MEDS: IPRATROPIUM 0.5 MG/2.5 ML NEBU INHALATION SCH ×4 (08:45→19:14)
[2023-03-30] MEDS ORDERED: HEPARIN SODIUM 1,000 UN/ML (10ML VL) IV PRN (08:50)
[2023-03-30] MEDS ORDERED: HEPARIN SODIUM 1,000 UN/ML (10ML VL) IV ONE (08:50)
[2023-03-30] MEDS ORDERED: ASPIRIN 81 MG PO SCH (09:00)
[2023-03-30] MEDS ORDERED: CLOPIDOGREL 75 MG TAB PO SCH (09:00)
[2023-03-30] MEDS ORDERED: METOPROLOL SUCCINATE (ER) 100 MG TAB.ER.24H PO SCH ×2 (09:00→21:00)
--- NOTE | 2023-03-30 10:08 | P.PN ---
Progress Note - Text Progress Note Date: 03/30/23 patient seen and examined she is really doing pretty well. Denies any pain in his back. Troponins bumped slightly overnight. Cardiology seeing the patient. BX is okay with heparin and/or Plavix and aspirin for home. Patient is stable from orthopedic standpoint for home. Exam is stable good strength bilateral upper and lower extremities. No sensation deficits. Relatively stable exam. Patient is postop day 1 and L1 kyphoplasty with chest pains, cardiology following ortho stable for discharge
[2023-03-30 10:33] LABS: Partial Thromboplastin Time 31.6 sec (22.0-30.0); Prothrombin Time 11.2 sec (10.0-12.5)
[2023-03-30] MEDS: HYDROcodone/APAP 5-325MG 1 EACH TAB PO PRN (10:35)
[2023-03-30] MEDS: HEPARIN SOD,PORK IN 0.45% NACL 25,000 UNIT in 0.45% NACL 1 250ML.BAG IV SCH (10:43)
[2023-03-30] MEDS: FOLIC ACID 1 MG TAB PO SCH (12:19)
[2023-03-30] MEDS: THIAMINE 100 MG TAB PO SCH (12:19)
[2023-03-30] MEDS: BUMETANIDE 1 MG TAB PO SCH (12:20)
[2023-03-30] MEDS: BACLOFEN 10 MG TAB PO SCH ×4 (12:20→19:55)
[2023-03-30] MEDS: FAMOTIDINE 20 MG/2 ML VIAL IV SCH ×2 (12:24→19:55)
[2023-03-30] MEDS: FLUTICASONE 50MCG/SPRAY NASAL 16GM EA NOSTRIL SCH (12:34)
--- NOTE | 2023-03-30 14:17 | CA ---
Transthoracic Echo Report Name: Alban Rosenthal Age: 83 Gender: M : 1940 Exam Date: 03/30/2023 11:25 Exam Location: [facility] Ht (in): 71 Wt (lb): 160 Ordering Physician: Gustavo Espinosa MD Attending/Referring Phys: Chato Bowers DO [employer] Chyna Patel [facility] Procedure CPT: Indications: Rule out heart disease Cardiac Hx: Technical Quality: Technically difficult study Contrast 1: Lumason Total Dose (mL): 5 Contrast 2: Total Dose (mL): MEASUREMENTS (Male / Female) Normal Values 2D ECHO LV Diastolic Diameter PLAX 5.5 cm 4.2 - 5.9 / 3.9 - 5.3 cm LV Systolic Diameter PLAX 4.4 cm IVS Diastolic Thickness 1.1 cm 0.6 - 1.0 / 0.6 - 0.9 cm LVPW Diastolic Thickness 1.1 cm 0.6 - 1.0 / 0.6 - 0.9 cm LV Relative Wall Thickness 0.4 Ascending Aorta Diameter 3.0 cm M-MODE Aortic Root Diameter MM 3.1 cm LA Systolic Diameter MM 4.4 cm LA Ao Ratio MM 1.4 AV Cusp Separation MM 2.0 cm DOPPLER AV Peak Velocity 98.7 cm/s AV Peak Gradient 3.9 mmHg AV Mean Velocity 74.4 cm/s AV Mean Gradient 2.4 mmHg AV Velocity Time Integral 21.3 cm LVOT Peak Velocity 90.0 cm/s LVOT Peak Gradient 3.2 mmHg LVOT Velocity Time Integral 21.5 cm Mitral E Point Velocity 63.5 cm/s Mitral A Point Velocity 103.0 cm/s Mitral E to A Ratio 0.6 MV Deceleration Time 284.0 ms LV E' Lateral Velocity 6.7 cm/s Mitral E to LV E' Lateral Ratio 9.4 LV E' Septal Velocity 4.5 cm/s Mitral E to LV E' Septal Ratio 14.0 TR Peak Velocity 344.0 cm/s TR Peak Gradient 47.3 mmHg Right Atrial Pressure 3.0 mmHg Pulmonary Artery Systolic Pressu 50.3 mmHg Right Ventricular Systolic Press 50.3 mmHg FINDINGS Left Ventricle Mildly increased left ventricular wall thickness. Left ventricular cavity size normal. Normal left ventricular systolic function with basal inferior hypokinesia. Left ventricular ejection fraction is estimated at 55-60%. Grade I Diastolic dysfunction. Right Ventricle Mild right ventricular dilatation. Moderate pulmonary hypertension. Right Atrium Mild right atrial dilatation. Left Atrium Severe left atrial dilatation. Mitral Valve Mitral valve thickened. Mild mitral annular calcification. Mild mitral regurgitation. Aortic Valve Trileaflet aortic valve. Focal thickening of the aortic valve cusps. No aortic regurgitation. Tricuspid Valve Structurally normal tricuspid valve. [id number] tricuspid regurgitation. Pulmonic Valve Structurally normal pulmonic valve. Moderate pulmonic regurgitation. Pericardium No pericardial effusion. Aorta Normal size aortic root and proximal ascending aorta. CONCLUSIONS Left ventricular ejection fraction is estimated at 55-60%. Basal inferior hypokinesia. Grade I Diastolic dysfunction. Moderate pulmonary hypertension. Mild mitral regurgitation. Wall motion abnormality appears to be chronic Previewed by: Dr Judah Pantoja (Electronically Signed) Final Date: 30 March 2023 14:17
--- NOTE | 2023-03-30 15:31 | US ---
EXAMINATION TYPE: US venous doppler duplex LE DATE OF EXAM: 03/30/2023 9:25 AM Exam done portable COMPARISON: NONE CLINICAL INDICATION: Male, 83 years old with history of leg swelling; Bilateral leg cramping SIDE PERFORMED: Bilateral TECHNIQUE: The lower extremity deep venous system is examined utilizing real time linear array sonog michelle with graded compression, doppler sonography and color-flow sonography. VESSELS IMAGED: Common Femoral Vein Deep Femoral Vein Greater Saphenous Vein * Femoral Vein Popliteal Vein Small Saphenous Vein * Proximal Calf Veins (* superficial vessels) Limited visualization of veins due to shadowing from arterial calcifications Right Leg: Appears negative for DVT Left Leg: Appears negative for DVT IMPRESSION: Grayscale, color doppler, spectral doppler imaging performed of the deep veins of the lo wer extremities. There is normal flow, compressibility, vascular waveforms.
--- NOTE | 2023-03-30 15:49 | P.CRDCN ---
History of Present Illness Consult date: 03/30/23 History of present illness: HISTORY OF PRESENTING ILLNESS 83-year-old with the hospital history of CAD status post cath showing CT of RCA by Dr. Mancia. He also has history of COPD, dyslipidemia, hypertension, osteoarthritis. He was scheduled for an spinal kyphoplasty by Dr. Escalona and and postoperatively an ECG was performed which was concerning of possible change s. We do not have any prior ECG to compare with. For this cardiology was paged. I reviewed ECG and examined the patient at bedside. ECG showed sinus rhythm with Q waves inferiorly with nonspecific ST changes in inferior leads which were mostly corresponding to old [place] Following this patient had troponin levels checked which were mildly elevated with uptrending pattern. He had an echo Which showed a preserved LV function with basal inferior wall hypokinesia. This appeared to be chronic and old. Patient is denying having any chest pain chest pressure or shortness of breath. REVIEW OF SYSTEMS 14 point review of system is negative except what is mentioned above in HPI. PHYSICAL EXAMINATION Vital signs reviewed. Head: Normocephalic. Eyes: Sclerae nonicteric. Neck: Brisk carotid upstroke, no jugular venous distention. Lungs: Clear to auscultation. Heart: Regular rate and rhythm, S1-S2, no S3, no murmur or rub. Abdomen: Soft nontender, positive bowel sounds no organomegaly. Extremities: No edema, intact distal pulses. ASSESSMENT Elevated troponin likely type II NSTEMI. Most likely related to postoperative myocardial injury No reported chest pain or shortness of breath Prior history of CAD with known CT of RCA Status post kyphoplasty Essential hypertension Dyslipidemia COPD PLAN Start aspirin 81 mg and atorvastatin 40 mg Continue IV heparin drip for next 24 hours. Continue losartan 320, metoprolol succinate 100 mg Past Medical History Past Medical History: Cancer, COPD, GERD/Reflux, Hyperlipidemia, Hypertension, Myocardial Infarction (MA), Osteoarthritis (OA), Thyroid Disorder Additional Past Medical History / Comment(s): colitis , protacatits,skin cancer Last Myocardial Infarction Date:: 2020 History of Any Multi-Drug Resistant Organisms: None Reported Past Surgical History: Appendectomy Additional Past Surgical History / Comment(s): detacted retina rt ,colonoscopy with polyps removed, Past Anesthesia/Blood Transfusion Reactions: No Reported Reaction Past Psychological History: No Psychological Hx Reported Smoking Status: Former smoker Past Alcohol Use History: Occasional Additional Past Alcohol Use History / Comment(s): quit 45 yrs ago, 2 glasses of wine daily,occasional beer Past Drug Use History: None Reported - Past Family History Brother(s) Family Medical History: Cancer Additional Family Medical History / Comment(s): prostate Medications and Allergies Home Medications Medication Instructions Recorded Confirmed Type Albuterol Nebulized (Conc) 2.5 mg INHALATION Q6H 03/22/23 03/22/23 History [Ventolin Nebulized (Conc)] Albuterol Sulfate [Ventolin HFA] 2 inhalation INHALATION Q4-6H PRN 03/22/23 03/22/23 History Aspirin [Adult Low Dose Aspirin EC] 81 mg PO DAILY 03/22/23 03/22/23 History B-12 (Unk) 1 tab PO DAILY 03/22/23 03/22/23 History Baclofen 10 mg PO TID 03/22/23 03/22/23 History Bumetanide 1 mg PO DAILY 03/22/23 03/22/23 History Clopidogrel [Plavix] 75 mg PO DAILY 03/22/23 03/22/23 History Fluticasone Propionate 1 sprays EA NOSTRIL DAILY 03/22/23 03/22/23 History [Fluticasone Propionate [place] 50 mcg Nasal [place]] Fluticasone/Umeclidin/Vilanter 1 puff INHALATION DAILY 03/22/23 03/22/23 History [Trelegy Ellipta 200-62.5-25] Folic Acid 1 mg PO DAILY 03/22/23 03/22/23 History HYDROcodone/APAP 5-325MG [[place] 1 tab PO Q6H 03/22/23 03/22/23 History 5-325] Levothyroxine Sodium [Synthroid] 50 mcg PO DAILY 03/22/23 03/22/23 History Meclizine [Antivert] 25 mg PO BID PRN 03/22/23 03/22/23 History Metoprolol Succinate (ER) [Toprol 100 mg PO DAILY 03/22/23 03/22/23 History Xl] Multivitamins, Thera [Multivitamin 1 tab PO DAILY 03/22/23 03/22/23 History (formulary)] [place](Unk) 1 tab PO DAILY 03/22/23 03/22/23 History Omeprazole 20 mg PO DAILY 03/22/23 03/22/23 History Omeprazole 20 mg PO DAILY 03/22/23 03/22/23 History Potassium Chloride [Klor-Con 10 ER] 1 tab PO DAILY 03/22/23 03/22/23 History Rosuvastatin Calcium 20 mg PO Q48H 03/22/23 03/22/23 History Ubidecarenone [Co Q-10] 30 mg PO DAILY 03/22/23 03/22/23 History Valsartan 320 mg PO DAILY 03/22/23 03/22/23 History Vit D3(Unk) 1 tab PO DAILY 03/22/23 03/22/23 History sulfaSALAzine [Sulfasalazine] 1,000 mg PO BID 03/22/23 03/22/23 History HYDROcodone/APAP 7.5-325MG [[place] 1 tab PO Q6HR PRN #12 tab 03/29/23 Rx 7.5-325] Allergies Allergy/AdvReac Type Severity Reaction Status Date / Time No Known Allergies Allergy Verified 03/22/23 11:42 Physical Exam Vitals: Vital Signs Temp Pulse Pulse Resp BP Pulse Ox 03/30/23 15:43 84 03/30/23 15:31 88 03/30/23 14:16 98.5 F 85 16 164/61 95 03/30/23 12:02 80 03/30/23 11:45 84 03/30/23 06:58 98.3 F 77 16 157/74 91 L 03/30/23 02:00 98.0 F 71 20 121/62 95 03/30/23 01:23 72 03/30/23 01:16 74 03/29/23 22:00 74 18 112/58 03/29/23 21:35 83 03/29/23 21:19 68 110/56 91 L 03/29/23 21:00 68 20 109/56 91 L 03/29/23 20:19 76 114/63 92 L 03/29/23 20:00 76 22 109/56 92 L 03/29/23 19:50 84 113/57 91 L 03/29/23 19:30 84 22 113/57 91 L 03/29/23 19:20 79 120/56 92 L 03/29/23 19:04 80 114/66 90 L 03/29/23 19:00 82 20 114/66 90 L 03/29/23 18:49 80 132/62 90 L 03/29/23 18:45 80 20 132/62 90 L 03/29/23 18:30 83 127/61 92 L 03/29/23 18:15 98.2 F 83 20 150/69 93 L 03/29/23 18:00 75 18 147/64 94 L 03/29/23 17:15 82 16 149/69 93 L 03/29/23 16:46 74 16 145/67 93 L 03/29/23 16:31 87 16 119/74 95 03/29/23 16:01 80 16 141/62 93 L Intake and Output 03/30/23 03/30/23 03/30/23 06:59 14:59 22:59 Intake Total 0 Output Total 100 Balance -100 Intake: Oral 0 Output: Urine 100 Other: Voiding Method Toilet # Voids 1 Results 03/30/23 07:28 03/30/23 07:28 Cardiac Enzymes 03/29/23 03/29/23 03/29/23 Range/Units 18:56 18:56 22:01 AST 40 (17-59) U/L Troponin I 0.022 0.106 H* (0.000-0.034) ng/mL 03/30/23 Range/Units 07:28 AST (17-59) U/L Troponin I 0.465 H* (0.000-0.034) ng/mL Coagulation 03/30/23 Range/Units 10:04 PT 11.2 (10.0-12.5) sec APTT 31.6 H (22.0-30.0) sec CBC 03/29/23 03/30/23 Range/Units 17:49 07:28 WBC 8.0 8.5 (3.8-10.6) k/uL RBC 4.48 4.10 L (4.30-5.90) m/uL Hgb 14.7 13.8 (13.0-17.5) gm/dL Hct 45.7 42.0 (39.0-53.0) % Plt Count 153 160 (150-450) k/uL Comprehensive Metabolic Panel 03/29/23 03/30/23 Range/Units 18:56 07:28 Sodium 137 138 (137-145) mmol/L Potassium 3.9 4.0 (3.5-5.1) mmol/L Chloride 105 108 H (98-107) mmol/L Carbon Dioxide 21 L 22 (22-30) mmol/L BUN 14 15 (9-20) mg/dL Creatinine 0.65 L 0.88 (0.66-1.25) mg/dL Glucose 242 H 93 (74-99) mg/dL Calcium 9.2 8.8 (8.4-10.2) mg/dL AST 40 (17-59) U/L ALT 25 (4-49) U/L Alkaline Phosphatase 83 (38-126) U/L Total Protein 6.7 (6.3-8.2) g/dL Albumin 4.0 (3.5-5.0) g/dL Current Medications Generic Name Dose Route Start Last Admin Trade Name Freq PRN Reason Stop Dose Admin Hydrocodone Bitart/Acetaminophen 1 each 03/29/23 20:01 03/30/23 10:35 Hydrocodone/Apap 5-325mg 1 Each Tab PO 1 each Q6HR PRN Administration Pain Albuterol Sulfate 2.5 mg 03/30/23 02:00 03/30/23 11:45 Albuterol Nebulized 2.5 Mg/3 Ml INHALATION 2.5 mg RT-Q6H EDIS Administration Albuterol Sulfate 2.5 mg 03/29/23 20:01 Albuterol Nebulized 2.5 Mg/3 Ml INHALATION RT-Q4H PRN Shortness Of Breath Baclofen 10 mg 03/29/23 22:00 03/30/23 12:23 Baclofen 10 Mg Tab PO Not Given TID EDIS Budesonide/Formoterol Fumarate 2 puff 03/30/23 08:00 03/30/23 08:44 Symbicort 80-4.5 Mcg Inhaler INHALATION Not Given RT-BID EDIS Bumetanide 1 mg 03/30/23 09:00 03/30/23 12:20 Bumetanide 1 Mg Tab PO 1 mg DAILY EDIS Administration Famotidine 20 mg 03/30/23 09:00 03/30/23 12:24 Famotidine 20 Mg/2 Ml Vial IV 20 mg Q12HR EDIS Administration Fluticasone Propionate 1 spray 03/30/23 09:00 03/30/23 12:34 Fluticasone 50mcg/[place] Nasal 16gm EA NOSTRIL 1 spray DAILY EDIS Administration Folic Acid 1 mg 03/30/23 09:00 03/30/23 12:19 Folic Acid 1 Mg Tab PO 1 mg DAILY EDIS Administration Heparin Sodium (Porcine) 0 unit 03/30/23 08:50 Heparin Sodium 1,000 Un/Ml (10ml Vl) IV PER PROTOCOL PRN Low PTT Protocol Lactated Ringer's 1,000 mls @ 20 mls/hr 03/29/23 05:55 03/30/23 06:09 Lactated Ringers IV 04/28/23 05:56 Not Given .Q24H EDIS Heparin Sodium/Sodium Chloride 250 mls @ 8.724 mls/hr 03/30/23 09:00 03/30/23 10:43 25,000 unit/ Sodium Chloride IV 12 units/kg/hr .Q24H EDIS 8.724 mls/hr Administration Protocol 12 UNITS/KG/HR Ipratropium [place] 0.5 mg 03/30/23 08:00 03/30/23 15:30 Ipratropium 0.5 Mg/2.5 Ml Nebu INHALATION 0.5 mg RT-QID EDIS Administration Levothyroxine Sodium 50 mcg 03/30/23 06:30 03/30/23 06:13 Levothyroxine 50 Mcg Tab PO 50 mcg 0630 EDIS Administration Lidocaine HCl 0.1 ml 03/29/23 05:55 Lidocaine 1% (10mg/Ml) For Iv Start INTRADERMA 04/28/23 05:56 PER PROTOCOL PRN IV Start Lorazepam 0.5 mg 03/30/23 07:53 Lorazepam 2 Mg/Ml Inj IV Q6HR PRN Anxiety Meclizine HCl 25 mg 03/29/23 20:01 Meclizine 25 Mg Tab PO BID PRN dizziness Metoprolol Succinate 100 mg 03/30/23 21:00 Metoprolol Succinate (Er) 100 Mg Tab.Er.24h PO HS EDIS Thiamine HCl 100 mg 03/30/23 09:00 03/30/23 12:19 Thiamine 100 Mg Tab PO 100 mg DAILY EDIS Administration Valsartan 320 mg 03/30/23 15:00 Valsartan 160 Mg Tab PO DAILY EDIS Intake and Output 03/30/23 03/30/23 03/30/23 06:59 14:59 22:59 Intake Total 0 Output Total 100 Balance -100 Intake: Oral 0 Output: Urine 100 Other: Voiding Method Toilet # Voids 1 03/30/23 07:28 03/30/23 07:28
[2023-03-30] MEDS: VALSARTAN 160 MG TAB PO SCH (16:29)
[2023-03-31] MEDS: ALBUTEROL NEBULIZED 2.5 MG/3 ML INHALATION SCH ×2 (04:49→09:23)
[2023-03-31] MEDS: LACTATED RINGERS 1,000 ML IV SCH (05:00)
[2023-03-31] MEDS: LEVOTHYROXINE 50 MCG TAB PO SCH (05:59)
[2023-03-31 08:12] VITALS: BP 190/70; RESP 16; TEMP 97.6
[2023-03-31] MEDS: HYDROcodone/APAP 5-325MG 1 EACH TAB PO PRN (08:29)
[2023-03-31] MEDS: THIAMINE 100 MG TAB PO SCH (08:30)
[2023-03-31] MEDS: FAMOTIDINE 20 MG/2 ML VIAL IV SCH (08:30)
[2023-03-31] MEDS: VALSARTAN 160 MG TAB PO SCH (08:30)
[2023-03-31] MEDS: FOLIC ACID 1 MG TAB PO SCH (08:30)
[2023-03-31] MEDS: BACLOFEN 10 MG TAB PO SCH (08:30)
[2023-03-31] MEDS: FLUTICASONE 50MCG/SPRAY NASAL 16GM EA NOSTRIL SCH (08:30)
[2023-03-31] MEDS: BUMETANIDE 1 MG TAB PO SCH (08:30)
[2023-03-31 09:12] LABS: Basophils # (A) 0.04 X 10*3/uL (0.00-0.10); Basophils % (A) 0.6 %; Eosinophils # (A) 0.14 X 10*3/uL (0.04-0.35); Eosinophils % (A) 2.2 %; HCT 41.9 % (39.6-50.0); HGB 13.8 d/dL (13.0-17.0); Lymphocytes # (A) 1.11 X 10*3/uL (0.90-5.00); Lymphocytes % (A) 17.5 %; MCH 33.1 pg (27.0-32.0); MCHC 32.9 d/dL (32.0-37.0); MCV 100.5 FL (80.0-97.0); Mean Platelet Volume 11.8 FL (9.5-12.2); Monocytes # (A) 0.72 X 10*3/uL (0.20-1.00); Monocytes % (A) 11.3 %; NRBC Per 100 WBC 0 X 10*3/uL (0.00-0.01); Neutrophils # (A) 4.32 X 10*3/uL (1.80-7.70); Neutrophils % (A) 67.9 %; Platelet Count 169 X 10*3/uL (140-440); RBC 4.17 X 10*6/uL (4.40-5.60); RDW 13.6 % (11.5-14.5); WBC 6.36 X 10*3/uL (4.50-10.00)
[2023-03-31 09:16] LABS: Blood Urea Nitrogen 13.8 mg/dL (9.0-27.0); Carbon Dioxide 24.1 mmol/L (21.6-31.8); Chloride 104 mmol/L (96-109); Glucose 105 mg/dL (70-110); Potassium 3.9 mmol/L (3.5-5.5); Sodium 141 mmol/L (135-145)
[2023-03-31] MEDS: SYMBICORT 80-4.5 MCG INHALER INHALATION SCH (09:23)
[2023-03-31] MEDS: IPRATROPIUM 0.5 MG/2.5 ML NEBU INHALATION SCH ×2 (09:23→12:31)
[2023-03-31 09:31] VITALS: PULSE 72
[2023-03-31] MEDS: HEPARIN SOD,PORK IN 0.45% NACL 25,000 UNIT in 0.45% NACL 1 250ML.BAG IV SCH (10:14)
--- NOTE | 2023-03-31 10:42 | P.PN ---
Subjective Progress Note Date: 03/31/23 Progress note: Seen and examined at bedside this a.m. Patient denies any active chest pain chest pressure shortness of breath. He is hemodynamics stable. He has received 24 hours of IV heparin therapy HISTORY OF PRESENTING ILLNESS 83-year-old with the hospital history of CAD status post cath showing CT of RCA by Dr. Mancia. He also has history of COPD, dyslipidemia, hypertension, osteoarthritis. He was scheduled for an spinal kyphoplasty by Dr. Mcpherson's and and postoperatively an ECG was performed which was concerning of possible changes. We do not have any prior ECG to compare with. For this cardiology was paged. I reviewed ECG and examined the patient at bedside. ECG showed sinus rhythm with Q waves inferiorly with nonspecific ST changes in inferior leads which were mostly corresponding to old [place] Following this patient had troponin levels checked which were mildly elevated with uptrending pattern. He had an echo Which showed a preserved LV function with basal inferior wall hypokinesia. This appeared to be chronic and old. Patient is denying having any chest pain chest pressure or shortness of breath. REVIEW OF SYSTEMS 14 point review of system is negative except what is mentioned above in HPI. PHYSICAL EXAMINATION Vital signs reviewed. Head: Normocephalic. Eyes: Sclerae nonicteric. Neck: Brisk carotid upstroke, no jugular venous distention. Lungs: Clear to auscultation. Heart: Regular rate and rhythm, S1-S2, no S3, no murmur or rub. Abdomen: Soft nontender, positive bowel sounds no organomegaly. Extremities: No edema, intact distal pulses. ASSESSMENT Elevated troponin likely type II NSTEMI. Most likely related to postoperative myocardial injury No reported chest pain or shortness of breath Prior history of CAD with known CT of RCA Status post kyphoplasty Essential hypertension Dyslipidemia COPD PLAN Incorporating other data with elevated troponins, prior history of CT of RCA, basal inferior hypokinesia on echo with preserved EF, I feel patient did had an episode of postoperative myocardial injury. Patient received 24 hours of IV heparin therapy. We can discontinue IV heparin. Patient is okay to be discharged from cardiac vessel standpoint. I would recommend him to continue aspirin and atorvastatin. Continue losartan 320, metoprolol succinate 100 mg Continue to follow up with Dr. Mancia in 1-2 weeks Okay to be discharged Objective - Vital Signs Vital signs: Vital Signs Temp 97.6 F 03/31/23 07:00 Pulse 72 03/31/23 09:40 Resp 16 03/31/23 07:00 BP 190/70 03/31/23 07:00 Pulse Ox 90 L 03/31/23 07:00 FiO2 Intake & Output 03/30/23 03/31/23 03/31/23 18:59 06:59 18:59 Intake Total 74.736 97.709 Output Total 0 Balance 74.736 97.709 Intake: Intake, IV Titration 74.736 97.709 Amount Heparin Sod,Pork in 0.45% 74.736 97.709 NaCl 25,000 unit In 0.45 % NaCl 1 250ml.bag @ 12 UNITS/KG/HR 8.724 mls/hr IV .Q24H [facility] Rx#: [id number] Output: Emesis 0 Other: Voiding Method Toilet Toilet Toilet # Voids 1 - Labs CBC & Chem 7: 03/31/23 05:32 03/31/23 05:32 Labs: Abnormal Lab Results - Last 24 Hours (Table) 03/30/23 03/31/23 03/31/23 Range/Units 16:41 02:11 05:32 RBC 4.17 L (4.40-5.60) X 10*6/uL MCV 100.5 H (80.0-97.0) FL MCH 33.1 H (27.0-32.0) pg APTT 106.5 H* 54.1 H (22.0-30.0) sec Anion Gap (4.00-12.00) mmol/L 03/31/23 Range/Units 05:32 RBC (4.40-5.60) X 10*6/uL MCV (80.0-97.0) FL MCH (27.0-32.0) pg APTT (22.0-30.0) sec Anion Gap 12.90 H (4.00-12.00) mmol/L
--- NOTE | 2023-03-31 18:12 | P.PN ---
Subjective addendum: I came to see the patient today , but he was already discharged and left the hospital before I have a chance to see the pt or talk to him, the bed side nurse discharged the patient based upon orthopedic team order to discharge the patient (please refer to the discharge order) i called the pt at [phone] and left a message to call back Objective - Vital Signs Vital signs: Vital Signs Temp 97.6 F 03/31/23 07:00 Pulse 72 03/31/23 09:40 Resp 16 03/31/23 07:00 BP 190/70 03/31/23 07:00 Pulse Ox 90 L 03/31/23 07:00 FiO2 Intake & Output 03/30/23 03/31/23 03/31/23 18:59 06:59 18:59 Intake Total 74.736 97.709 Output Total 0 Balance 74.736 97.709 Intake: Intake, IV Titration 74.736 97.709 Amount Heparin Sod,Pork in 0.45% 74.736 97.709 NaCl 25,000 unit In 0.45 % NaCl 1 250ml.bag @ 12 UNITS/KG/HR 8.724 mls/hr IV .Q24H EDIS Rx#: [id number] Output: Emesis 0 Other: Voiding Method Toilet Toilet Toilet # Voids 1 - Labs CBC & Chem 7: 03/31/23 05:32 03/31/23 05:32 Labs: Abnormal Lab Results - Last 24 Hours (Table) 03/30/23 03/31/23 03/31/23 Range/Units 16:41 02:11 05:32 RBC 4.17 L (4.40-5.60) X 10*6/uL MCV 100.5 H (80.0-97.0) FL MCH 33.1 H (27.0-32.0) pg APTT 106.5 H* 54.1 H (22.0-30.0) sec Anion Gap (4.00-12.00) mmol/L 03/31/23 Range/Units 05:32 RBC (4.40-5.60) X 10*6/uL MCV (80.0-97.0) FL MCH (27.0-32.0) pg APTT (22.0-30.0) sec Anion Gap 12.90 H (4.00-12.00) mmol/L
== END 2023-03-31 12:59 | disposition home or self-care (01) ==
LOC: OR 12:10 → 6NMEDSUR 15:05 → OR 03-31 12:59
PROVIDERS: ATTEND Internal Medicine
DX: S32.010A Wedge compression fracture of first lumbar vertebra, initial encounter for closed fracture (principal); J45.909 Unspecified asthma, uncomplicated; K21.9 Gastro-esophageal reflux disease without esophagitis; I10 Essential (primary) hypertension; E78.5 Hyperlipidemia, unspecified; I25.2 Old myocardial infarction; Z85.828 Personal history of other malignant neoplasm of skin; Z90.49 Acquired absence of other specified parts of digestive tract; Z87.891 Personal history of nicotine dependence; W19.XXXA Unspecified fall, initial encounter; Z79.51 Long term (current) use of inhaled steroids; Z79.02 Long term (current) use of antithrombotics/antiplatelets; Z79.890 Hormone replacement therapy
CPT/HCPCS: 94640 ×4; 94664; 97161; 86900; 86901; 80053; 80048 ×2; 84484 ×2; 85025 ×2; 85027; 85610; 85730 ×2; 86850; 83036; 72100; 93970; 22514; C8929; J0360; J1100; J0690; J2405; J3490 ×3; J1644 ×2; Q9950; Q9966; J0665; 93306

== ENCOUNTER 2023-11-20 12:03 | Emergency (ER) | payer MEDICARE, BC ==
[2023-11-20 13:26] VITALS: RESP 18
--- NOTE | 2023-11-20 13:58 | ED ---
Upper Extremity HPI - General Chief Complaint: Extremity Injury, Upper Stated Complaint: Injury to L arm Source: patient, RN notes reviewed, old records reviewed Mode of arrival: ambulatory Limitations: physical limitation - History of Present Illness Initial Comments: 83 male to the ED for complaints of Left wrist pain and swelling patient is left handed. Symptoms times 1 day. Positive injury This is an 83-year-old male to the ER for evaluation of left-sided wrist pain left-sided near thumb pain that started yesterday while putting some stuff into his car. The pain has been significantly increasing in both amount and swelling. No other traumatic injuries noted. Patient has full range of motion of the left hand and wrist MD Complaint: Injury to:: left, wrist, hand -: days(s) Other Extremity Injury: Hand: Left, Wrist: Left Handedness: left Place: outdoors Worsens With: none Context: direct blow Associated Symptoms: denies other symptoms Treatments Prior to Arrival: other (0) - Related Data Home Medications Medication Instructions Recorded Confirmed Albuterol Nebulized (Conc) 2.5 mg INHALATION Q6H 03/22/23 03/22/23 [Ventolin Nebulized (Conc)] Albuterol Sulfate [Ventolin HFA] 2 inhalation INHALATION Q4-6H PRN 03/22/23 03/22/23 Aspirin [Adult Low Dose Aspirin EC] 81 mg PO DAILY 03/22/23 03/22/23 B-12 (Unk) 1 tab PO DAILY 03/22/23 03/22/23 Baclofen 10 mg PO TID 03/22/23 03/22/23 Bumetanide 1 mg PO DAILY 03/22/23 03/22/23 Clopidogrel [Plavix] 75 mg PO DAILY 03/22/23 03/22/23 Fluticasone Propionate 1 sprays EA NOSTRIL DAILY 03/22/23 03/22/23 [Fluticasone Propionate [place] 50 mcg Nasal [place]] Fluticasone/Umeclidin/Vilan[place] 1 puff INHALATION DAILY 03/22/23 03/22/23 [Trelegy Ellipta 200-62.5-25] Folic Acid 1 mg PO DAILY 03/22/23 03/22/23 HYDROcodone/APAP 5-325MG [[place] 1 tab PO Q6H 03/22/23 03/22/23 5-325] Levothyroxine Sodium [Synthroid] 50 mcg PO DAILY 03/22/23 03/22/23 Meclizine [Antivert] 25 mg PO BID PRN 03/22/23 03/22/23 Metoprolol Succinate (ER) [Toprol 100 mg PO DAILY 03/22/23 03/22/23 Xl] Multivitamins, Thera [Multivitamin 1 tab PO DAILY 03/22/23 03/22/23 (formulary)] [place](Unk) 1 tab PO DAILY 03/22/23 03/22/23 Omeprazole 20 mg PO DAILY 03/22/23 03/22/23 Omeprazole 20 mg PO DAILY 03/22/23 03/22/23 Potassium Chloride [Klor-Con 10 ER] 1 tab PO DAILY 03/22/23 03/22/23 Rosuvastatin Calcium 20 mg PO Q48H 03/22/23 03/22/23 Ubidecarenone [Co Q-10] 30 mg PO DAILY 03/22/23 03/22/23 Valsartan 320 mg PO DAILY 03/22/23 03/22/23 Vit D3(Unk) 1 tab PO DAILY 03/22/23 03/22/23 sulfaSALAzine [Sulfasalazine] 1,000 mg PO BID 03/22/23 03/22/23 Previous Rx's Medication Instructions Recorded HYDROcodone/APAP 7.5-325MG [[place] 1 tab PO Q6HR PRN #12 tab 03/29/23 7.5-325] Allergies Allergy/AdvReac Type Severity Reaction Status Date / Time No Known Allergies Allergy Verified 03/22/23 11:42 Review of Systems ROS Statement: Those systems with pertinent positive or pertinent negative responses have been documented in the HPI. ROS Other: All systems not noted in ROS Statement are negative. Past Medical History Past Medical History: Cancer, COPD, GERD/Reflux, Hyperlipidemia, Hypertension, Myocardial Infarction (SD), Osteoarthritis (OA), Thyroid Disorder Additional Past Medical History / Comment(s): colitis , protacatits,skin cancer Last Myocardial Infarction Date:: 2020 History of Any Multi-Drug Resistant Organisms: None Reported Past Surgical History: Appendectomy Additional Past Surgical History / Comment(s): detacted retina rt ,colonoscopy with polyps removed, Past Anesthesia/Blood Transfusion Reactions: No Reported Reaction Past Psychological History: No Psychological Hx Reported Smoking Status: Former smoker Past Alcohol Use History: Occasional Past Drug Use History: None Reported - Past Family History Brother(s) Family Medical History: Cancer Additional Family Medical History / Comment(s): prostate General Exam Limitations: physical limitation General appearance: alert, in no apparent distress Head exam: Present: atraumatic, normocephalic, normal inspection Eye exam: Present: normal appearance, PERRL, EOMI. Absent: scleral icterus, conjunctival injection, periorbital swelling ENT exam: Present: normal exam, mucous membranes moist Neck exam: Present: normal inspection. Absent: tenderness, meningismus, lymphadenopathy Respiratory exam: Present: normal lung sounds bilaterally. Absent: respiratory distress, wheezes, rales, rhonchi, stridor Cardiovascular Exam: Present: regular rate, normal rhythm, normal heart sounds. Absent: systolic murmur, diastolic murmur, rubs, gallop, clicks GI/Abdominal exam: Present: soft, normal bowel sounds. Absent: distended, tenderness, guarding, rebound, rigid Extremities exam: Present: normal inspection, full ROM, normal capillary refill. Absent: tenderness, pedal edema, joint swelling, calf tenderness Back exam: Present: normal inspection Neurological exam: Present: alert, oriented X3, CN II-XII intact Psychiatric exam: Present: normal affect, normal mood Skin exam: Present: warm, dry, intact, normal color. Absent: rash Course Vital Signs 11/20/23 11/20/23 13:21 16:00 Temperature 97.7 F 97.8 F Pulse Rate 66 75 Respiratory 18 18 Rate Blood Pressure 171/82 187/69 O2 Sat by Pulse 96 95 Oximetry - Reevaluation(s) Reevaluation #1: 11/20/23 13:58 QN completed by myself Dr Bedolla Reevaluation #2: 11/20/23 15:47 Symptoms improved here in the ER Reevaluation #3: 11/20/23 15:47 Point of results and questions answered Reevaluation #4: Was pt. sent in by a medical professional or institution (, PA, PHYSICS AND ASTRONOMY PROFESSOR, urgent care, hospital, or jail...) When possible be specific @ -no Did you speak to anyone other than the patient for history (EMS, parent, family, police, friend...)? What history was obtained from this source @ -no Did you review nursing and triage notes (agree or disagree)? Why? @ -agree Are old charts reviewed (outside hosp., previous admission, EMS record, old EKG, old radiological studies, urgent care reports/EKG's, jail records)? Re port findings @ -yes Differential Diagnosis (chest pain, altered mental status, abdominal pain women, abdominal pain men, vaginal bleeding, weakness, fever, dyspnea, syncope, headache, dizziness, GI bleed, back pain, seizure, CVA, palpatations, mental health, musculoskeletal)? @ -prior EKG interpreted by me (3pts min.). @ -no X-rays interpreted by me (1pt min.). @ -yes negative for acute disease CT interpreted by me (1pt min.). @ -no U/S interpreted by me (1pt. min.). @ -no What testing was considered but not performed or refused? (CT, X-rays, U/S, labs)? Why? @ -none What meds were considered but not given or refused? Why? @ -none Did you discuss the management of the patient with other professionals (professionals i.e. , PA, PHYSICS AND ASTRONOMY PROFESSOR, lab, RT, psych nurse, social studies department chair, sales enablement lead, t eacher, labor relations officer, major case detective)? Give summary @ -no Was smoking cessation discussed for >3mins.? @ -no Were there social determinants of health that impacted care today? How? (Homelessness, low income, unemployed, alcoholism, drug addiction, transportation, low edu. Level, literacy, decrease access to med. care, [facility], rehab)? @ -none Was there de-escalation of care discussed even if they declined (Discuss DNR or withdrawal of care, Hospice)? DNR status @ -no What co-morbidities impacted this encounter? (DM, HTN, Smoking, COPD, CAD, Cancer, CVA, ARF, Chemo, Hep., AIDS, mental health diagnosis, sleep apnea, morbid obesity)? @ -none Was patient admitted / discharged? Hospital course, mention meds given and route, prescriptions, significant lab abnormalities, going to OR and other p ertinent info. @ - 83 Male to the ER for evaluation of wrist pain left wrist pain with no acute findings on x-ray. Patient has adequate pain control can be discharged home Discharge Was critical care preformed (if so, how long)? @ -no Undiagnosed new problem with uncertain prognosis? @ -no Drug Therapy requiring intensive monitoring for toxicity (Heparin, Nitro, Insulin, Cardizem)? @ -no Were any procedures done? @ -no Diagnosis/sy finger sprain, finger pain mptom? @ -Wrist pain and contusion Acute, or Chronic, or Acute on Chronic? @ -Acute Uncomplicated (without systemic symptoms) or Complicated (systemic symptoms)? @ -Complicated Side effects of treatment? @ -no Exacerbation, Progression, or Severe Exacerbation? @ -exacerbation Poses a threat to life or bodily function? How? (Chest pain, [place], SD, pneumonia, PE, COPD, DKA, ARF, appy, cholecystitis, CVA, Diverticulitis, Homicidal, Suicidal, threat to staff... and all critical care pts) @ -no Medical Decision Making - Medical Decision Making 83 Male to the ER for evaluation of wrist pain left wrist pain with no acute findings on x-ray. Patient has adequate pain control can be discharged home - Radiology Data Radiology results: report reviewed (Left wrist negative for traumatic injury), image reviewed Disposition Clinical Impression: Right wrist pain Disposition: HOME SELF-CARE Condition: Good Instructions (If sedation given, give patient instructions): Hand Sprain (ED) Is patient prescribed a controlled substance at d/c from ED?: No Referrals: Francisco Barnes MD [Primary Care Provider] - 1-2 days Time of Disposition: 15:30
--- NOTE | 2023-11-20 14:21 | XR ---
EXAMINATION TYPE: XR wrist complete LT DATE OF EXAM: 11/20/2023 2:13 PM CLINICAL INDICATION:Male, 83 years old with history of Pain; [facility] COMPARISON: None TECHNIQUE: XR wrist complete LT; examined in the Frontal, navicular, lateral, and oblique. FINDINGS: No acute osseous pathology, joint dislocation, or joint effusion. No evidence of any soft tissue swelling is seen. Multifocal degeneration changes with joint space narrowing osteophyte format ion. IMPRESSION: 1. No acute osseous pathology. 2. Mild multifocal degeneration with joint space narrowing osteophyte formation.
[2023-11-20] MEDS: Acetaminophen-Codeine 300-30mg TAB PO STA (15:56)
[2023-11-20] MEDS: ACET/COD 300 MG/30 MG STARTER PACK 6 TAB BTL PO STA (15:57)
[2023-11-20 16:02] VITALS: BP 187/69; PULSE 75; TEMP 97.8
== END 2023-11-20 16:02 | disposition home or self-care (01) ==
LOC: EC 12:03
DX: S60.211A Contusion of right wrist, initial encounter (principal); Z87.891 Personal history of nicotine dependence; X58.XXXA Exposure to other specified factors, initial encounter
CPT/HCPCS: 99283

== ENCOUNTER 2024-09-12 15:50 | Inpatient (IN) | payer MEDICARE, BC ==
--- NOTE | 2024-09-12 16:01 | ED ---
SOB HPI - General Chief Complaint: Shortness of Breath Stated Complaint: congestion, cough Time Seen by Provider: 09/12/24 16:00 Source: patient, RN notes reviewed, old records reviewed Mode of arrival: ambulatory Limitations: no limitations - History of Present Illness Initial Comments: This is a 84-year-old male to the ER for evaluation this man presents today for evaluation of severe shortness of breath fevers for a week shortness of breath with exertional dyspnea history of COPD on oxygen just at night. Patient's dyspnea has been increased pulse ox significantly low especially on arrival to the ER off his oxygen in the low 80s. Patient denying any current chest pain but has felt like he has a cold with cough congestion and shortness of breath going on his third or fourth day. No improvement MD Complaint: shortness of breath, cough -: days(s) (4) Severity: severe Severity scale (1-10): 9 Consistency: constant Improves With: rest Worsens With: exertion, movement Known History Of: COPD Context: recent URI, recent illness Associated Symptoms: fever, cough, sputum production Treatments Prior to Arrival: none - Related Data Home Medications Medication Instructions Recorded Confirmed Albuterol Sulfate [Ventolin HFA] 2 puff INHALATION RT-Q4H PRN 03/22/23 09/12/24 Aspirin [Adult Low Dose Aspirin EC] 81 mg PO DAILY 03/22/23 09/12/24 Bumetanide 1 mg PO DAILY 03/22/23 09/12/24 Fluticasone Propionate 2 spr EA NOSTRIL DAILY PRN 03/22/23 09/12/24 [Fluticasone Propionate Chi[place]o 50 mcg Nasal Chi[place]o] Fluticasone/Umeclidin/Vilanter 1 puff INHALATION RT-DAILY 03/22/23 09/12/24 [Trelegy Ellipta 200-62.5-25] Folic Acid 1 mg PO DAILY 03/22/23 09/12/24 Meclizine [Antivert] 25 mg PO TID PRN 03/22/23 09/12/24 Metoprolol Succinate (ER) [Toprol 100 mg PO HS 03/22/23 09/12/24 XL] Omeprazole 20 mg PO DAILY 03/22/23 09/12/24 Potassium Chloride [Klor-Con 10 ER] 1 tab PO TID 03/22/23 09/12/24 sulfaSALAzine 1,000 mg PO BID 03/22/23 09/12/24 Albuterol Inhaler [Ventolin Hfa 2 puff INHALATION RT-HS 09/12/24 09/12/24 Inhaler] Albuterol Nebulized [Ventolin 2.5 mg INHALATION RT-QID PRN 09/12/24 09/12/24 Nebulized] Cholecalciferol [Vitamin D3 (25 25 mcg PO DAILY 09/12/24 09/12/24 Mcg = 1000 Iu)] Cyanocobalamin (Vitamin B-12) 5,000 mcg PO DAILY 09/12/24 09/12/24 [Vitamin B-12] Ezetimibe [Zetia] 10 mg PO HS 09/12/24 09/12/24 Multivit-Min/FA/Lycopen/Lutein 1 tab PO DAILY 09/12/24 09/12/24 [Centrum Silver Tablet] Ubidecarenone [Coenzyme Q10] 200 mg PO DAILY 09/12/24 09/12/24 guaiFENesin 400 mg PO Q6H PRN 09/12/24 09/12/24 Previous Rx's Medication Instructions Recorded Acetaminophen Tab [Tylenol] 650 mg PO Q6HR PRN tab 09/17/24 Apixaban [Eliquis] 5 mg PO BID #60 tab 09/17/24 Atorvastatin [Lipitor] 40 mg PO HS #30 tab 09/17/24 Dapagliflozin Propanediol [Farxiga] 10 mg PO DAILY #30 tab 09/17/24 Fluconazole [Diflucan] 100 mg PO DAILY 7 Days #7 tab 09/17/24 Ipratropium-Albuterol Nebulize 3 ml INHALATION RT-TID #100 each 09/17/24 [Duoneb 0.5 mg-3 mg/3 ml Soln] Ipratropium-Albuterol Nebulize 3 ml INHALATION RT-TID PRN each 09/17/24 [Duoneb 0.5 mg-3 mg/3 ml Soln] Isosorbide Mononitrate ER [Imdur] 15 mg PO DAILY #30 tab 09/17/24 Levothyroxine Sodium [Synthroid] 25 mcg PO DAILY@629 #30 tab 09/17/24 Sacubitril/Valsartan [Entresto 97 1 each PO BID@799,1999 #60 tab 09/17/24 mg-103 mg Tablet] Spironolactone [Aldactone] 25 mg PO DAILY #30 tab 09/17/24 amLODIPine [Norvasc] 5 mg PO DAILY #30 tab 09/17/24 cefuroxime axetiL [Ceftin] 500 mg PO BID 5 Days #10 tab 09/17/24 hydrALAZINE HCL [Apresoline] 25 mg PO QID #120 tab 09/17/24 predniSONE See Taper PO DIRECTED #30 tab 09/17/24 Allergies Allergy/AdvReac Type Severity Reaction Status Date / Time No Known Allergies Allergy Verified 09/12/24 18:53 Review of Systems ROS Statement: Those systems with pertinent positive or pertinent negative responses have been documented in the HPI. ROS Other: All systems not noted in ROS Statement are negative. Past Medical History Past Medical History: Cancer, COPD, GERD/Reflux, Hyperlipidemia, Hypertension, Myocardial Infarction (GA), Osteoarthritis (OA), Thyroid Disorder Additional Past Medical History / Comment(s): colitis , protacatits,skin cancer Last Myocardial Infarction Date:: 2020 History of Any Multi-Drug Resistant Organisms: None Reported Past Surgical History: Appendectomy Additional Past Surgical History / Comment(s): detacted retina rt ,colonoscopy with polyps removed, Past Anesthesia/Blood Transfusion Reactions: No Reported Reaction Past Psychological History: No Psychological Hx Reported Smoking Status: Former smoker Past Alcohol Use History: Occasional Past Drug Use History: None Reported - Past Family History Brother(s) Family Medical History: Cancer Additional Family Medical History / Comment(s): prostate General Exam Limitations: no limitations General appearance: alert, anxious, in distress Head exam: Present: atraumatic, normocephalic, normal inspection Eye exam: Present: normal appearance, PERRL, EOMI. Absent: scleral icterus, conjunctival injection, periorbital swelling ENT exam: Present: normal exam, mucous membranes moist Neck exam: Present: normal inspection. Absent: tenderness, meningismus, lymphadenopathy Respiratory exam: Present: respiratory distress, wheezes, accessory muscle use, decreased breath sounds, prolonged expiratory. Absent: rales, rhonchi, stridor Cardiovascular Exam: Present: normal rhythm, tachycardia, normal heart sounds. Absent: systolic murmur, diastolic murmur, rubs, gallop, clicks GI/Abdominal exam: Present: soft, normal bowel sounds. Absent: distended, tenderness, guarding, rebound, rigid Extremities exam: Present: normal inspection, full ROM, normal capillary refill. Absent: tenderness, pedal edema, joint swelling, calf tenderness Back exam: Present: normal inspection Neurological exam: Present: alert, oriented X3, CN II-XII intact Psychiatric exam: Present: normal affect, normal mood Skin exam: Present: warm, dry, intact, normal color. Absent: rash Course Vital Signs 09/12/24 09/12/24 09/12/24 15:52 16:00 17:46 Temperature 97.5 F L Pulse Rate 106 H 92 Pulse Rate [ Hop Farmer ] Respiratory 18 Rate Blood Pressure 129/77 Blood Pressure [Right Arm] O2 Sat by Pulse 88 L 92 L Oximetry 09/12/24 09/12/24 09/12/24 17:53 20:00 22:00 Temperature Pulse Rate 93 87 83 Pulse Rate [ Hop Farmer ] Respiratory 18 18 Rate Blood Pressure 130/53 131/66 Blood Pressure [Right Arm] O2 Sat by Pulse 95 Oximetry 09/13/24 09/13/24 09/13/24 00:15 03:05 04:25 Temperature Pulse Rate 94 86 111 H Pulse Rate [ Hop Farmer ] Respiratory 18 18 18 Rate Blood Pressure 140/69 137/72 141/86 Blood Pressure [Right Arm] O2 Sat by Pulse 95 93 L 95 Oximetry 09/13/24 09/13/24 09/13/24 06:52 08:00 08:07 Temperature 97.5 F L Pulse Rate 90 105 H Pulse Rate [ 95 Hop Farmer ] Respiratory 18 20 Rate Blood Pressure 150/90 Blood Pressure 154/104 [Right Arm] O2 Sat by Pulse 95 96 Oximetry 09/13/24 09/13/24 09/13/24 08:15 08:18 08:30 Temperature Pulse Rate 120 H Pulse Rate [ 117 H 126 H [place] Farmer ] Respiratory 20 22 Rate Blood Pressure Blood Pressure 154/104 [Right Arm] O2 Sat by Pulse 99 96 Oximetry 09/13/24 09/13/24 09/13/24 08:41 08:45 09:00 Temperature Pulse Rate Pulse Rate [ 216 H 210 H 156 H [place] Farmer ] Respiratory 18 Rate Blood Pressure Blood Pressure 131/98 111/85 [Right Arm] O2 Sat by Pulse 95 Oximetry 09/13/24 09/13/24 09/13/24 09:03 09:15 09:40 Temperature Pulse Rate Pulse Rate [ 203 H 112 H 186 H [place] Farmer ] Respiratory Rate Blood Pressure Blood Pressure 149/79 [Right Arm] O2 Sat by Pulse Oximetry 09/13/24 09/13/24 09/13/24 09:50 10:00 10:07 Temperature Pulse Rate 124 H 198 H Pulse Rate [ 122 H [place] Farmer ] Respiratory 18 20 Rate Blood Pressure 149/94 159/95 Blood Pressure [Right Arm] O2 Sat by Pulse 93 L 92 L Oximetry 09/13/24 09/13/24 09/13/24 10:27 10:45 11:03 Temperature Pulse Rate Pulse Rate [ 135 H 179 H 181 H [place] Farmer ] Respiratory Rate Blood Pressure Blood Pressure [Right Arm] O2 Sat by Pulse Oximetry 09/13/24 09/13/24 09/13/24 11:30 12:00 12:30 Temperature 97.5 F L Pulse Rate Pulse Rate [ 186 H 114 H 93 [place] Farmer ] Respiratory 20 Rate Blood Pressure Blood Pressure 146/94 [Right Arm] O2 Sat by Pulse 95 Oximetry 09/13/24 09/13/24 09/13/24 13:30 14:30 15:30 Temperature Pulse Rate Pulse Rate [ 114 H 95 84 [place] Farmer ] Respiratory Rate Blood Pressure Blood Pressure [Right Arm] O2 Sat by Pulse Oximetry 09/13/24 09/13/24 09/13/24 16:00 20:22 21:55 Temperature 97.6 F 97.8 F 97.6 F Pulse Rate 89 Pulse Rate [ 82 87 Hop Farmer ] Respiratory 18 18 16 Rate Blood Pressure 146/73 Blood Pressure 179/85 162/90 [Right Arm] O2 Sat by Pulse 96 95 94 L Oximetry 09/14/24 09/14/24 09/14/24 00:00 05:59 08:05 Temperature 97.8 F 97.8 F Pulse Rate 85 Pulse Rate [ 100 83 [place] Farmer ] Respiratory 20 18 20 Rate Blood Pressure 152/80 Blood Pressure 179/92 148/95 [Right Arm] O2 Sat by Pulse 92 L 91 L 87 L Oximetry 09/14/24 09/14/24 09/14/24 08:06 08:20 10:00 Temperature Pulse Rate 81 80 92 Pulse Rate [ Hop Farmer ] Respiratory 20 Rate Blood Pressure 174/84 Blood Pressure [Right Arm] O2 Sat by Pulse 94 L Oximetry 09/14/24 09/14/24 09/14/24 11:52 12:00 12:04 Temperature Pulse Rate 91 90 89 Pulse Rate [ Hop Farmer ] Respiratory 20 Rate Blood Pressure 153/69 Blood Pressure [Right Arm] O2 Sat by Pulse 92 L Oximetry 09/14/24 09/14/24 09/14/24 12:48 13:56 14:30 Temperature 97.9 F Pulse Rate 126 H 112 H 85 Pulse Rate [ Hop Farmer ] Respiratory 20 20 Rate Blood Pressure 185/76 155/76 Blood Pressure [Right Arm] O2 Sat by Pulse 93 L 93 L Oximetry 09/14/24 09/14/24 09/14/24 16:00 18:29 18:38 Temperature 97.6 F Pulse Rate 80 77 77 Pulse Rate [ Hop Farmer ] Respiratory 20 Rate Blood Pressure 153/79 Blood Pressure [Right Arm] O2 Sat by Pulse 92 L Oximetry 09/14/24 22:50 Temperature 97.8 F Pulse Rate 78 Pulse Rate [ Hop Farmer ] Respiratory 19 Rate Blood Pressure 154/72 Blood Pressure [Right Arm] O2 Sat by Pulse 93 L Oximetry - Reevaluation(s) Reevaluation #1: 09/12/24 17:40 Medical records reviewed Reevaluation #2: 09/12/24 17:41 Patient symptoms relatively unchanged here in the ER Still short of breath Reevaluation #3: 09/12/24 17:41 Patient informed of results questions answered Reevaluation #4: Was pt. sent in by a medical professional or institution (, PA, RADIAL DRILL OPERATOR, urgent care, hospital, or intermediate...) When possible be specific @ -no Did you speak to anyone other than the patient for history (EMS, parent, family, police, friend...)? What history was obtained from this source @ -no Did you review nursing and triage notes (agree or disagree)? Why? @ -agree Are old charts reviewed (outside hosp., previous admission, EMS record, old EKG, old radiological studies, urgent care reports/EKG's, intermediate records)? Report findings @ -yes Differential Diagnosis (chest pain, altered mental status, abdominal pain women, abdominal pain men, vaginal bleeding, weakness, fever, dyspnea, syncope, headache, dizziness, GI bleed, back pain, seizure, CVA, palpatations, mental health, musculoskeletal)? @ -prior EKG interpreted by me (3pts min.). @ -yes X-rays interpreted by me (1pt min.). @ -yes negative for acute disease CT interpreted by me (1pt min.). @ -no U/S interpreted by me (1pt. min.). @ -no What testing was considered but not performed or refused? (CT, X-rays, U/S, labs)? Why? @ -none What meds were considered but not given or refused? Why? @ -none Did you discuss the management of the patient with other professionals (professionals i.e. , PA, RADIAL DRILL OPERATOR, lab, RT, psych nurse, social media intern, sheeter waxer operator, teacher, civil preparedness training officer, caseworker)? Give summary @ -no Was smoking cessation discussed for >3mins.? @ -no Was critical care preformed (if so, how long)? @ -yes31 Were there social determinants of health that impacted care today? How? (Homelessness, low income, unemployed, alcoholism, drug addiction, transportation, low edu. Level, literacy, decrease access to med. care, long term, rehab)? @ -none Was there de-escalation of care discussed even if they declined (Discuss DNR or withdrawal of care, Hospice)? DNR status @ -no What co-morbidities impacted this encounter? (DM, HTN, Smoking, COPD, CAD, Cancer, CVA, ARF, Chemo, Hep., AIDS, mental health diagnosis, sleep apnea, morbid obesity)? @ -none Was patient admitted / discharged? Hospital course, mention meds given and route, prescriptions, significant lab abnormalities, going to OR and other pertinent info. @ - 84 male to the ER for evaluation patient presents today for evaluation of shortness of breath history of COPD hypoxia significant, shortness of breath here in the ER no chest pain, patient does have pneumonia on x-ray RSV on viral testing and severe COPD Admitted Undiagnosed new problem with uncertain prognosis? @ -no Drug Therapy requiring intensive monitoring for toxicity (Heparin, Nitro, In sulin, Cardizem)? @ -no Were any procedures done? @ -no Diagnosis/symptom? @ -A-fib with RVR, RSV, pneumonia COPD with hypoxia Acute, or Chronic, or Acute on Chronic? @ -Acute Uncomplicated (without systemic symptoms) or Complicated (systemic symptoms)? @ -Complicated Side effects of treatment? @ -no Exacerbation, Progression, or Severe Exacerbation? @ -exacerbation Poses a threat to life or bodily function? How? (Chest pain, [place], GA, pneumonia, PE, COPD, DKA, ARF, appy, cholecystitis, CVA, Diverticulitis, Homicidal, Suicidal, threat to staff... and all critical care pts) @ -yes significant respiratory distress Reevaluation #5: Differential Dyspnea: Coronary syndrome, arrhythmia, tamponade, asthma, COPD, pulmonary embolism, pneumonia, pneumothorax, pulmonary effusion, anaphylaxis, diabetic ketoacidosis, flailed chest, pulmonary contusion, diaphragmatic rupture, anemia, neuromuscular, this is not meant to be an all-inclusive list. - Consultations Consultation #1: Spoke with [facility] who agrees to admit this patient Medical Decision Making - Medical Decision Making 84 male to the ER for evaluation patient presents today for evaluation of shortness of breath history of COPD hypoxia significant, shortness of breath here in the ER no chest pain, patient does have pneumonia on x-ray RSV on viral testing and severe COPD - Lab Data Result diagrams: 09/20/24 07:43 09/20/24 07:43 Lab Results 09/12/24 09/12/24 09/12/24 Range/Units 16:00 16:01 16:01 WBC 11.9 H (3.8-10.6) k/uL RBC 4.71 (4.30-5.90) m/uL Hgb 15.8 (13.0-17.5) gm/dL Hct 48.1 (39.0-53.0) % MCV 102.3 H (80.0-100.0) fL MCH 33.5 (25.0-35.0) pg MCHC 32.8 (31.0-37.0) g/dL RDW 12.2 (11.5-15.5) % Plt Count 161 (150-450) k/uL MPV 10.5 Neutrophils % 84 % Lymphocytes % 7 % Monocytes % 7 % Eosinophils % 0 % Basophils % 0 % Neutrophils # 10.0 H (1.3-7.7) k/uL Lymphocytes # 0.8 L (1.0-4.8) k/uL Monocytes # 0.9 (0-1.0) k/uL Eosinophils # 0.0 (0-0.7) k/uL Basophils # 0.0 (0-0.2) k/uL PT 10.9 (10.0-12.5) sec INR 1.0 (<1.2) APTT 33.7 H (22.0-30.0) sec Sodium (137-145) mmol/L Potassium (3.5-5.1) mmol/L Chloride (98-107) mmol/L Carbon Dioxide (22-30) mmol/L Anion Gap mmol/L BUN (9-20) mg/dL Creatinine (0.66-1.25) mg/dL Est GFR (CKD-EPI)AfAm (>60 ml/min/1.73 sqM) Est GFR (CKD-EPI)NonAf (>60 ml/min/1.73 sqM) Glucose (74-99) mg/dL Lactic Ac Sepsis Rflx Plasma Lactic Acid [place] (0.7-2.0) mmol/L Calcium (8.4-10.2) mg/dL Magnesium (1.6-2.3) mg/dL Total Bilirubin (0.2-1.3) mg/dL AST (17-59) U/L ALT (4-49) U/L Alkaline Phosphatase (38-126) U/L Troponin I (0.000-0.034) ng/mL NT-Pro-B Natriuret Pep pg/mL Total Protein (6.3-8.2) g/dL Albumin (3.5-5.0) g/dL Influenza Type A (PCR) Not Detected (Not Detectd) Influenza Type B (PCR) Not Detected (Not Detectd) RSV (PCR) Detected A (Not Detectd) SARS-CoV-2 (PCR) Not Detected (Not Detectd) 09/12/24 09/12/24 09/12/24 Range/Units 16:01 16:01 16:01 WBC (3.8-10.6) k/uL RBC (4.30-5.90) m/uL Hgb (13.0-17.5) gm/dL Hct (39.0-53.0) % MCV (80.0-100.0) fL MCH (25.0-35.0) pg MCHC (31.0-37.0) g/dL RDW (11.5-15.5) % Plt Count (150-450) k/uL MPV Neutrophils % % Lymphocytes % % Monocytes % % Eosinophils % % Basophils % % Neutrophils # (1.3-7.7) k/uL Lymphocytes # (1.0-4.8) k/uL Monocytes # (0-1.0) k/uL Eosinophils # (0-0.7) k/uL Basophils # (0-0.2) k/uL PT (10.0-12.5) sec INR (<1.2) APTT (22.0-30.0) sec Sodium 135 L (137-145) mmol/L Potassium 4.3 (3.5-5.1) mmol/L Chloride 96 L (98-107) mmol/L Carbon Dioxide 27 (22-30) mmol/L Anion Gap 12 mmol/L BUN 17 (9-20) mg/dL Creatinine 0.92 (0.66-1.25) mg/dL Est GFR (CKD-EPI)AfAm 89 (>60 ml/min/1.73 sqM) Est GFR (CKD-EPI)NonAf 77 (>60 ml/min/1.73 sqM) Glucose 110 H (74-99) mg/dL Lactic Ac Sepsis Rflx Plasma Lactic Acid [place] 2.2 H* (0.7-2.0) mmol/L Calcium 10.0 (8.4-10.2) mg/dL Magnesium 1.8 (1.6-2.3) mg/dL Total Bilirubin 1.8 H (0.2-1.3) mg/dL AST 59 (17-59) U/L ALT 34 (4-49) U/L Alkaline Phosphatase 79 (38-126) U/L Troponin I 0.037 H* (0.000-0.034) ng/mL NT-Pro-B Natriuret Pep 4780 pg/mL Total Protein 7.6 (6.3-8.2) g/dL Albumin 4.5 (3.5-5.0) g/dL Influenza Type A (PCR) (Not Detectd) Influenza Type B (PCR) (Not Detectd) RSV (PCR) (Not Detectd) SARS-CoV-2 (PCR) (Not Detectd) 09/12/24 Range/Units 16:42 WBC (3.8-10.6) k/uL RBC (4.30-5.90) m/uL Hgb (13.0-17.5) gm/dL Hct (39.0-53.0) % MCV (80.0-100.0) fL MCH (25.0-35.0) pg MCHC (31.0-37.0) g/dL RDW (11.5-15.5) % Plt Count (150-450) k/uL MPV Neutrophils % % Lymphocytes % % Monocytes % % Eosinophils % % Basophils % % Neutrophils # (1.3-7.7) k/uL Lymphocytes # (1.0-4.8) k/uL Monocytes # (0-1.0) k/uL Eosinophils # (0-0.7) k/uL Basophils # (0-0.2) k/uL PT (10.0-12.5) sec INR (<1.2) APTT (22.0-30.0) sec Sodium (137-145) mmol/L Potassium (3.5-5.1) mmol/L Chloride (98-107) mmol/L Carbon Dioxide (22-30) mmol/L Anion Gap mmol/L BUN (9-20) mg/dL Creatinine (0.66-1.25) mg/dL Est GFR (CKD-EPI)AfAm (>60 ml/min/1.73 sqM) Est GFR (CKD-EPI)NonAf (>60 ml/min/1.73 sqM) Glucose (74-99) mg/dL Lactic Ac Sepsis Rflx Y Plasma Lactic Acid [place] (0.7-2.0) mmol/L Calcium (8.4-10.2) mg/dL Magnesium (1.6-2.3) mg/dL Total Bilirubin (0.2-1.3) mg/dL AST (17-59) U/L ALT (4-49) U/L Alkaline Phosphatase (38-126) U/L Troponin I (0.000-0.034) ng/mL NT-Pro-B Natriuret Pep pg/mL Total Protein (6.3-8.2) g/dL Albumin (3.5-5.0) g/dL Influenza Type A (PCR) (Not Detectd) Influenza Type B (PCR) (Not Detectd) RSV (PCR) (Not Detectd) SARS-CoV-2 (PCR) (Not Detectd) - EKG Data -: EKG Interpreted by Me (EKG is A-fib with RVR 106 QRS 114 QTc 412) - Radiology Data Radiology results: report reviewed (Chest x-ray positive for pneumonia), image reviewed Critical Care Time Critical Care Time: Yes Total Critical Care Time: 31 Disposition Clinical Impression: Acute exacerbation of chronic obstructive pulmonary disease, Community acquired pneumonia, RSV bronchiolitis, Atrial fibrillation with RVR Disposition: ADMITTED IP TO THIS HOSP Condition: Serious Is patient prescribed a controlled substance at d/c from ED?: No Time of Disposition: 17:00
[2024-09-12 16:33] LABS: Basophils % (A) 0 %; Eosinophils % (A) 0 %; HCT 48.1 % (39.0-53.0); HGB 15.8 gm/dL (13.0-17.5); Lymphocytes # (A) 0.8 k/uL (1.0-4.8); Lymphocytes % (A) 7 %; MCH 33.5 pg (25.0-35.0); MCHC 32.8 g/dL (31.0-37.0); MCV 102.3 fL (80.0-100.0); Mean Platelet Volume 10.5; Monocytes # (A) 0.9 k/uL (0-1.0); Monocytes % (A) 7 %; Neutrophils % (A) 84 %; Platelet Count 161 k/uL (150-450); RBC 4.71 m/uL (4.30-5.90); RDW 12.2 % (11.5-15.5); WBC 11.9 k/uL (3.8-10.6)
[2024-09-12 16:43] LABS: ALT 34 U/L (4-49); African American GFR (CKD) 89 (>60 ml/min/1.73 sqM); Albumin 4.5 g/dL (3.5-5.0); Anion Gap 12 mmol/L; Blood Urea Nitrogen 17 mg/dL (9-20); Carbon Dioxide 27 mmol/L (22-30); Chloride 96 mmol/L (98-107); Glucose 110 mg/dL (74-99); Non-African American GFR(CKD) 77 (>60 ml/min/1.73 sqM); Partial Thromboplastin Time 33.7 sec (22.0-30.0); Prothrombin Time 10.9 sec (10.0-12.5); Sodium 135 mmol/L (137-145); Total Bilirubin 1.8 mg/dL (0.2-1.3); Total Protein 7.6 g/dL (6.3-8.2)
[2024-09-12] MEDS: KETOROLAC 15 MG/ML 1 ML VIAL IVP STA (16:44)
[2024-09-12] MEDS: methylPREDNISolone SOD SUCCI 125 MG/2 ML VIAL IV STA (16:45)
[2024-09-12] MEDS: SODIUM CHLORIDE 0.9% 1,000 ML IV ONE (16:46)
[2024-09-12] MEDS: SODIUM CHLORIDE 0.9% 1,000 ML IV SCH ×2 (16:47→18:06)
[2024-09-12 16:51] LABS: NT-Pro-B-Type Natriuretic Pept 4780 pg/mL
--- NOTE | 2024-09-12 16:55 | XR ---
EXAMINATION TYPE: XR chest 2V DATE OF EXAM: 09/12/2024 4:36 PM COMPARISON: None. CLINICAL INDICATION: Male, 84 years old with history of difficulty breathing: Shortness of breath TECHNIQUE: XR chest 2V views of the chest are obtained. FINDINGS: Scattered senescent parenchymal changes noted. Hyperinflation compatible with COPD. Correlate for a vague infiltrate within the periphery of the left midlung zone. No evidence for atele ctasis. Heart size is stable. Mediastinal structures are stable and grossly unremarkable. No evidence for hilar prominence. Degenerative changes dorsal spine. IMPRESSION: 1. Correlate for a vague infiltrate within the periphery of the left midlung zone. [facility], , 09/12/2024 4:52 PM
[2024-09-12 17:08] LABS: Influenza A Not Detected (Not Detectd); Influenza B Not Detected (Not Detectd); RSV Detected (Not Detectd)
[2024-09-12 17:14] LABS: AST 59 U/L (17-59); Alkaline Phosphatase 79 U/L (38-126); Magnesium 1.8 mg/dL (1.6-2.3); Potassium 4.3 mmol/L (3.5-5.1)
[2024-09-12] MEDS: ACETAMINOPHEN IV (For NPO) 1,000 MG in EMPTY BAG 1 BAG IVPB STA (17:35)
[2024-09-12] MEDS ORDERED: ONDANSETRON 4 MG/2 ML VIAL IVP PRN (17:37)
[2024-09-12] MEDS ORDERED: ACETAMINOPHEN TAB 325 MG TAB PO PRN (17:37)
[2024-09-12] MEDS ORDERED: NALOXONE 0.4 MG/ML 1 ML VIAL IV PRN (17:37)
[2024-09-12] MEDS: IPRATROPIUM-ALBUTEROL 3 ML NEB INHALATION STA ×2 (17:44→19:00)
[2024-09-12] MEDS: LORazepam 1 MG TAB PO STA (18:06)
[2024-09-12] MEDS: AZITHROMYCIN 500 MG in SODIUM CHLORIDE 0.9% 250 ML IVPB STA (19:08)
[2024-09-13] MEDS: methylPREDNISolone SOD SUCCI 125 MG/2 ML VIAL IV SCH (00:08)
--- NOTE | 2024-09-13 00:11 | P.HPIM ---
History of Present Illness H&P Date: 09/12/24 Chief Complaint: Shortness of breath 84-year-old male, history of COPD, hypertension, hyperlipidemia, hypothyroidism, CAD/history of [place], presents to the ER for evaluation this man presents today for evaluation of severe shortness of breath fevers for a week shortness of breath with exertional dyspnea history of COPD on oxygen just at night. Patient's dyspnea has been increased pulse ox significantly low especially on arrival to the ER off his oxygen in the low 80s. Patient denying any current chest pain but has felt like he has a cold with cough congestion and shortness of breath going on his third or fourth day. No improvement Blood work completed in ED reveals a WBC of 11.9, hemoglobin of 15.8 and platelet count of 161, sodium 135, potassium 4.3, BUNs/creatinine of 17/0.92, lactic acid elevated at 2.2 and troponin is elevated at 0.037, BNP of 4780 Viral screen is positive for RSV PCR Chest x-ray reveals infiltrate within the periphery of the left midlung zone Review of Systems REVIEW OF SYSTEMS: CONSTITUTIONAL: No fever, no malaise, no fatigue. HEENT: No recent visual problems or hearing problems. Denied any sore throat. CARDIOVASCULAR: No chest pain, orthopnea, PND, no palpitations, no syncope. PULMONARY: No shortness of breath, no cough, no hemoptysis. GASTROINTESTINAL: No diarrhea, no nausea, no vomiting, no abdominal pain. NEUROLOGICAL: No headaches, no weakness, no numbness. HEMATOLOGICAL: Denies any bleeding or petechiae. GENITOURINARY: Denies any burning micturition, frequency, or urgency. MUSCULOSKELETAL/RHEUMATOLOGICAL: Denies any joint pain, swelling, or any muscle pain. ENDOCRINE: Denies any polyuria or polydipsia. The rest of the 14-point review of systems is negative. Past Medical History Past Medical History: Cancer, COPD, GERD/Reflux, Hyperlipidemia, Hypertension, Myocardial Infarction ([place]), Osteoarthritis (OA), Thyroid Disorder Additional Past Medical History / Comment(s): colitis , protacatits,skin cancer Last Myocardial Infarction Date:: 2020 History of Any Multi-Drug Resistant Organisms: None Reported Past Surgical History: Appendectomy Additional Past Surgical History / Comment(s): detacted retina rt ,colonoscopy with polyps removed, Past Anesthesia/Blood Transfusion Reactions: No Reported Reaction Past Psychological History: No Psychological Hx Reported Smoking Status: Former smoker Past Alcohol Use History: Occasional Past Drug Use History: None Reported - Past Family History Brother(s) Family Medical History: Cancer Additional Family Medical History / Comment(s): prostate Medications and Allergies Home Medications Medication Instructions Recorded Confirmed Type Albuterol Sulfate [Ventolin HFA] 2 puff INHALATION RT-Q4H PRN 03/22/23 09/12/24 History Aspirin [Adult Low Dose Aspirin EC] 81 mg PO DAILY 03/22/23 09/12/24 History Bumetanide 1 mg PO DAILY 03/22/23 09/12/24 History Clopidogrel [Plavix] 75 mg PO DAILY 03/22/23 09/12/24 History Fluticasone Propionate 2 spr EA NOSTRIL DAILY PRN 03/22/23 09/12/24 History [Fluticasone Propionate [place] 50 mcg Nasal [place]] Fluticasone/Umeclidin/Vilanter 1 puff INHALATION RT-DAILY 03/22/23 09/12/24 History [Trelegy Ellipta 200-62.5-25] Folic Acid 1 mg PO DAILY 03/22/23 09/12/24 History Levothyroxine Sodium [Synthroid] 50 mcg PO DAILY 03/22/23 09/12/24 History Meclizine [Antivert] 25 mg PO TID PRN 03/22/23 09/12/24 History Metoprolol Succinate (ER) [Toprol 100 mg PO HS 03/22/23 09/12/24 History Xl] Omeprazole 20 mg PO DAILY 03/22/23 09/12/24 History Potassium Chloride [Klor-Con 10 ER] 1 tab PO TID 03/22/23 09/12/24 History Valsartan 320 mg PO DAILY 03/22/23 09/12/24 History sulfaSALAzine [Sulfasalazine] 1,000 mg PO BID 03/22/23 09/12/24 History Albuterol Inhaler [Ventolin Hfa 2 puff INHALATION RT-HS 09/12/24 09/12/24 History Inhaler] Albuterol Nebulized [Ventolin 2.5 mg INHALATION RT-QID PRN 09/12/24 09/12/24 History Nebulized] Cholecalciferol [Vitamin D3 (25 25 mcg PO DAILY 09/12/24 09/12/24 History Mcg = 1000 Iu)] Cyanocobalamin (Vitamin B-12) 5,000 mcg PO DAILY 09/12/24 09/12/24 History [Vitamin B-12] Ezetimibe [Zetia] 10 mg PO HS 09/12/24 09/12/24 History Multivit-Min/FA/Lycopen/Lutein 1 tab PO DAILY 09/12/24 09/12/24 History [Centrum Silver Tablet] [place]-3 600mg 1 cap PO DAILY 09/12/24 09/12/24 History Rosuvastatin [Crestor] 10 mg PO Q2D 09/12/24 09/12/24 History Ubidecarenone [Coenzyme Q10] 200 mg PO DAILY 09/12/24 09/12/24 History guaiFENesin 400 mg PO Q6H PRN 09/12/24 09/12/24 History Allergies Allergy/AdvReac Type Severity Reaction Status Date / Time No Known Allergies Allergy Verified 09/12/24 18:53 Physical Exam Vitals: Vital Signs Temp Pulse Resp BP Pulse Ox 09/12/24 17:53 93 09/12/24 17:46 92 09/12/24 16:00 92 L 09/12/24 15:52 97.5 F L 106 H 18 129/77 88 L Intake and Output 09/12/24 09/12/24 09/12/24 06:59 14:59 22:59 Other: Weight 70.307 kg General appearance: alert, anxious, in distress Head exam: Present: atraumatic, normocephalic, normal inspection Eye exam: Present: normal appearance, PERRL, EOMI. Absent: scleral icterus, conjunctival injection, periorbital swelling ENT exam: Present: normal exam, mucous membranes moist Neck exam: Present: normal inspection. Absent: tenderness, meningismus, lymphadenopathy Respiratory exam: Present: respiratory distress, wheezes, accessory muscle use, decreased breath sounds, prolonged expiratory. Absent: rales, rhonchi, stridor Cardiovascular Exam: Present: normal rhythm, tachycardia, normal heart sounds. Absent: systolic murmur, diastolic murmur, rubs, gallop, clicks GI/Abdominal exam: Present: soft, normal bowel sounds. Absent: distended, tenderness, guarding, rebound, rigid Extremities exam: Present: normal inspection, full ROM, normal capillary refill. Absent: tenderness, pedal edema, joint swelling, calf tenderness Back exam: Present: normal inspection Neurological exam: Present: alert, oriented X3, CN II-XII intact Psychiatric exam: Present: normal affect, normal mood Skin exam: Present: warm, dry, intact, normal color. Absent: rash Results CBC & Chem 7: 09/12/24 16:01 09/12/24 16:01 Labs: Abnormal Lab Results - Last 24 Hours (Table) 09/12/24 09/12/24 09/12/24 Range/Units 16:00 16:01 16:01 WBC 11.9 H (3.8-10.6) k/uL MCV 102.3 H (80.0-100.0) fL Neutrophils # 10.0 H (1.3-7.7) k/uL Lymphocytes # 0.8 L (1.0-4.8) k/uL APTT 33.7 H (22.0-30.0) sec Sodium (137-145) mmol/L Chloride (98-107) mmol/L Glucose (74-99) mg/dL Plasma Lactic Acid [place] (0.7-2.0) mmol/L Total Bilirubin (0.2-1.3) mg/dL Troponin I (0.000-0.034) ng/mL RSV (PCR) Detected A (Not Detectd) 09/12/24 09/12/24 09/12/24 Range/Units 16:01 16:01 16:01 WBC (3.8-10.6) k/uL MCV (80.0-100.0) fL Neutrophils # (1.3-7.7) k/uL Lymphocytes # (1.0-4.8) k/uL APTT (22.0-30.0) sec Sodium 135 L (137-145) mmol/L Chloride 96 L (98-107) mmol/L Glucose 110 H (74-99) mg/dL Plasma Lactic Acid [place] 2.2 H* (0.7-2.0) mmol/L Total Bilirubin 1.8 H (0.2-1.3) mg/dL Troponin I 0.037 H* (0.000-0.034) ng/mL RSV (PCR) (Not Detectd) Assessment and Plan Assessment: 1. Community-acquired pneumonia -Chest x-ray reveals pneumonia; patient has been placed on IV Rocephin and azithromycin -Bronchodilator nebulizer treatments -Symptomatic treatment with antitussive therapy -Pulmonary consult in place 2. Acute RSV bronchiolitis; supportive care with bronchodilator nebulizers; IV steroids 3. Acute exacerbation COPD; patient has been placed on methylprednisone 60 mg IV every 6 hours; DuoNeb nebulizer treatments 4 times daily and as needed; patient remains on antibiotics for community-acquired pneumonia 4. Elevated troponin; initial troponin was found to be elevated at 0.037; repeat stat is within normal limit; likely related to pneumonia and COPD exacerbation 5. Hypertension; Toprol-XL 100 mg daily; valsartan 320 mg daily 6. Hyperlipidemia; Zetia 10 mg nightly; Crestor 10 mg every other day 7. CAD; stable on aspirin and Plavix 75 mg daily, Zetia 10 mg daily 8. Hypothyroidism; levothyroxine 50 mcg daily DVT prophylaxis; SCD/subcu heparin CODE STATUS; full code
--- NOTE | 2024-09-13 06:35 | XR ---
EXAMINATION TYPE: XR chest 1V DATE OF EXAM: 09/13/2024 COMPARISON: 09/12/2024 CLINICAL INDICATION: Male, 84 years old with history of sob; TECHNIQUE: Single frontal view of the chest is obtained. FINDINGS: There is diffuse interstitial opacity. There is no airspace opacity. There is no pleural effusion or pneumothorax. The heart is mildly enlarged. The osseous structures are intact. Impression: Diffuse interstitial opacity possibly chronic but no remote studies for comparison. Acute interstitia l process not entirely excluded but felt to be less likely. No acute airspace opacification. [facility], , 09/13/2024 6:33 AM
[2024-09-13 06:39] LABS: Basophils % (A) 0 %; Eosinophils % (A) 0 %; HCT 42.8 % (39.0-53.0); HGB 13.9 gm/dL (13.0-17.5); Lymphocytes # (A) 0.5 k/uL (1.0-4.8); Lymphocytes % (A) 6 %; MCH 33.2 pg (25.0-35.0); MCHC 32.5 g/dL (31.0-37.0); Mean Platelet Volume 10.2; Monocytes # (A) 0.2 k/uL (0-1.0); Monocytes % (A) 2 %; Neutrophils # (A) 7.9 k/uL (1.3-7.7); Neutrophils % (A) 92 %; Platelet Count 146 k/uL (150-450); RBC 4.19 m/uL (4.30-5.90); RDW 12.1 % (11.5-15.5); WBC 8.6 k/uL (3.8-10.6)
[2024-09-13 06:54] LABS: ALT 26 U/L (4-49); AST 30 U/L (17-59); African American GFR (CKD) >90 (>60 ml/min/1.73 sqM); Albumin 3.3 g/dL (3.5-5.0); Alkaline Phosphatase 78 U/L (38-126); Anion Gap 6 mmol/L; Blood Urea Nitrogen 17 mg/dL (9-20); Calcium 8.8 mg/dL (8.4-10.2); Carbon Dioxide 25 mmol/L (22-30); Chloride 103 mmol/L (98-107); Glucose 214 mg/dL (74-99); Magnesium 1.8 mg/dL (1.6-2.3); Non-African American GFR(CKD) 85 (>60 ml/min/1.73 sqM); Phosphorus 2.9 mg/dL (2.5-4.5); Potassium 3.8 mmol/L (3.5-5.1); Sodium 134 mmol/L (137-145); Total Bilirubin 0.8 mg/dL (0.2-1.3); Total Protein 5.9 g/dL (6.3-8.2)
[2024-09-13] MEDS: ALBUTEROL NEBULIZED 2.5 MG/3 ML INHALATION PRN (08:06)
[2024-09-13] MEDS ORDERED: HEPARIN SODIUM 1,000 UN/ML (10ML VL) IV PRN (08:58)
[2024-09-13] MEDS: HEPARIN SOD,PORK IN 0.45% NACL 25,000 UNIT in 0.45% NACL 1 250ML.BAG IV SCH (09:05)
[2024-09-13] MEDS: MAGNESIUM SULFATE-D5W PMX 1 GM in DEXTROSE/WATER 1 100ML.BAG IVPB SCH (09:07)
[2024-09-13] MEDS: HEPARIN SODIUM 1,000 UN/ML (10ML VL) IV ONE (09:08)
[2024-09-13] MEDS: DILTIAZEM DRIP BOLUS FROM BAG 1 MG SOLN IV ONE (09:09)
[2024-09-13] MEDS: DILTIAZEM 125 MG in SODIUM CHLORIDE 0.9% 100 ML IV SCH (09:09)
--- NOTE | 2024-09-13 09:46 | XR ---
EXAMINATION TYPE: XR chest 1V portable DATE OF EXAM: 09/13/2024 COMPARISON: 09/14/2019 CLINICAL INDICATION: Male, 84 years old with history of increased congestion, chest pain; TECHNIQUE: Single frontal view of the chest is obtained. FINDINGS: No change in the mild diffuse interstitial opacities likely chronic in nature. There is no airspace consolidation There is no pleural effusion or pneumothorax. The heart and pulmonary vasculature are normal for the technique. The osseous structures are intact. IMPRESSION: 1. Mild diffuse interstitial capacity likely chronic in nature. 2. No airspace consolidation, pleural effusion or pneumothorax. 3. No significant interval change. [facility], , 09/13/2024 9:44 AM
[2024-09-13] MEDS: POTASSIUM CHLORIDE ER 10 MEQ TAB.ER.PRT PO STA (10:26)
--- NOTE | 2024-09-13 12:11 | P.CNPUL ---
History of Present Illness Consult date: 09/13/24 Requesting physician: Gustavo Espinosa Reason for consult: dyspnea, cough, COPD Chief complaint: Shortness of breath, cough, congestion History of present illness: This is a pleasant 84-year-old male patient with a known history of oxygen dependent chronic obstructive pulmonary disease maintained on Trelegy and albuterol in the outpatient setting, former smoker. He follows with Dr. Bowers in the office. He also has a history of hypertension, hyperlipidemia, gastroesophageal reflux disease, hypothyroidism. He presented here to the emergency room yesterday with a 3 to 4-day history of increasing shortness of breath, cough and congestion. Was pulse ox readings were low at home in the 80s. Chest x-ray reveals evidence of COPD. There is a vague infiltrate within the periphery of the left midlung. White count 8.6. Hemoglobin 13.9. Platelets 146. Sodium 134. Potassium 3.8. Bicarb 25. BUN 17. Creatinine 0.74. Glucose 214. Troponins 0.037,. 0.032, 0.033. proBNP 4780. EKG reveals paroxysmal atrial fibrillation. His viral screen is positive for RSV. He is seen today in consultation in the emergency department. He is currently sitting up on the stretcher. Awake and alert in no acute distress. He is maintaining O2 saturations in the 90s on 3 L/min per nasal cannula. He is afebrile. He is tachycardic. Review of Systems REVIEW OF SYSTEMS: CONSTITUTIONAL: Denies any recent significant weight loss or weight gain. EYES: Denies change in vision. EARS, NOSE, MOUTH, THROAT: Denies headaches, denies sore throat. CARDIOVASCULAR: Denies chest pain, palpitations or syncopal episodes. RESPIRATORY: Positive for shortness of breath, cough, congestion no hemoptysis. GASTROINTESTINAL: Denies change in appetite, denies abdominal pain GENITOURINARY: Denies hematuria, denies infections. MUSKULOSKELETAL: Denies pain, denies swelling. INTEGUMENTARY: Denies rash, denies eczema. NEUROLOGICAL: Denies recent memory loss, no recent seizure activity. PSYCHIATRIC: Denies anxiety, denies depression. HEMATOLOGIC/LYMPHATIC: Denies anemia, denies enlarged lymph nodes. Past Medical History Past Medical History: Cancer, COPD, GERD/Reflux, Hyperlipidemia, Hypertension, Myocardial Infarction ([place]), Osteoarthritis (OA), Thyroid Disorder Additional Past Medical History / Comment(s): colitis , protacatits,skin cancer Last Myocardial Infarction Date:: 2020 History of Any Multi-Drug Resistant Organisms: None Reported Past Surgical History: Appendectomy Additional Past Surgical History / Comment(s): detacted retina rt ,colonoscopy with polyps removed, Past Anesthesia/Blood Transfusion Reactions: No Reported Reaction Past Psychological History: No Psychological Hx Reported Smoking Status: Former smoker Past Alcohol Use History: Occasional Past Drug Use History: None Reported - Past Family History Brother(s) Family Medical History: Cancer Additional Family Medical History / Comment(s): prostate Medications and Allergies Home Medications Medication Instructions Recorded Confirmed Type Albuterol Sulfate [Ventolin HFA] 2 puff INHALATION RT-Q4H PRN 03/22/23 09/12/24 History Aspirin [Adult Low Dose Aspirin EC] 81 mg PO DAILY 03/22/23 09/12/24 History Bumetanide 1 mg PO DAILY 03/22/23 09/12/24 History Clopidogrel [Plavix] 75 mg PO DAILY 03/22/23 09/12/24 History Fluticasone Propionate 2 spr EA NOSTRIL DAILY PRN 03/22/23 09/12/24 History [Fluticasone Propionate [place] 50 mcg Nasal [place]] Fluticasone/Umeclidin/Vilanter 1 puff INHALATION RT-DAILY 03/22/23 09/12/24 History [Trelegy Ellipta 200-62.5-25] Folic Acid 1 mg PO DAILY 03/22/23 09/12/24 History Levothyroxine Sodium [Synthroid] 50 mcg PO DAILY 03/22/23 09/12/24 History Meclizine [Antivert] 25 mg PO TID PRN 03/22/23 09/12/24 History Metoprolol Succinate (ER) [Toprol 100 mg PO HS 03/22/23 09/12/24 History Xl] Omeprazole 20 mg PO DAILY 03/22/23 09/12/24 History Potassium Chloride [Klor-Con 10 ER] 1 tab PO TID 03/22/23 09/12/24 History Valsartan 320 mg PO DAILY 03/22/23 09/12/24 History sulfaSALAzine [Sulfasalazine] 1,000 mg PO BID 03/22/23 09/12/24 History Albuterol Inhaler [Ventolin Hfa 2 puff INHALATION RT-HS 09/12/24 09/12/24 History Inhaler] Albuterol Nebulized [Ventolin 2.5 mg INHALATION RT-QID PRN 09/12/24 09/12/24 History Nebulized] Cholecalciferol [Vitamin D3 (25 25 mcg PO DAILY 09/12/24 09/12/24 History Mcg = 1000 Iu)] Cyanocobalamin (Vitamin B-12) 5,000 mcg PO DAILY 09/12/24 09/12/24 History [Vitamin B-12] Ezetimibe [Zetia] 10 mg PO HS 09/12/24 09/12/24 History Multivit-Min/FA/Lycopen/Lutein 1 tab PO DAILY 09/12/24 09/12/24 History [Centrum Silver Tablet] [place]-3 600mg 1 cap PO DAILY 09/12/24 09/12/24 History Rosuvastatin [Crestor] 10 mg PO Q2D 09/12/24 09/12/24 History Ubidecarenone [Coenzyme Q10] 200 mg PO DAILY 09/12/24 09/12/24 History guaiFENesin 400 mg PO Q6H PRN 09/12/24 09/12/24 History Allergies Allergy/AdvReac Type Severity Reaction Status Date / Time No Known Allergies Allergy Verified 09/12/24 18:53 Physical Exam Vitals: Vital Signs Temp Pulse Pulse Resp BP BP Pulse Ox 09/13/24 10:07 198 H 20 159/95 92 L 09/13/24 09:50 124 H 18 149/94 93 L 09/13/24 08:18 120 H 09/13/24 08:15 117 H 20 99 09/13/24 08:07 105 H 09/13/24 08:00 97.5 F L 95 20 154/104 96 09/13/24 06:52 90 18 150/90 95 09/13/24 04:25 111 H 18 141/86 95 09/13/24 03:05 86 18 137/72 93 L 09/13/24 00:15 94 18 140/69 95 09/12/24 22:00 83 18 131/66 95 09/12/24 20:00 87 18 130/53 09/12/24 17:53 93 09/12/24 17:46 92 09/12/24 16:00 92 L 09/12/24 15:52 97.5 F L 106 H 18 129/77 88 L Intake and Output 09/12/24 09/13/24 09/13/24 22:59 06:59 14:59 Intake Total 3.25 Balance 3.25 Intake: Intake, IV Titration 3.25 Amount Diltiazem 125 mg In 3.25 Sodium Chloride 0.9% 100 ml @ 5 MG/HR 5 mls/hr IV .Q24H [facility] Rx#:[id number] Other: Weight 70.307 kg GENERAL EXAM: Alert, pleasant, dyspneic 84-year-old male, on 3 L nasal cannula, fairly comfortable in no apparent distress. HEAD: Normocephalic. EYES: Normal reaction of pupils, equal size. NOSE: Clear with pink turbinates. THROAT: No erythema or exudates. NECK: No masses, no JVD. CHEST: No chest wall deformity. LUNGS: Equal air entry with bilateral scattered rhonchi, wheeze, diminished. CVS: S1 and S2 normal with no audible murmur, irregular rhythm. Tachycardic. ABDOMEN: No hepatosplenomegaly, normal bowel sounds, no guarding or rigidity. SPINE: No scoliosis or deformity SKIN: No rashes CENTRAL NERVOUS SYSTEM: No focal deficits, tone is normal in all 4 extremities. EXTREMITIES: There is no peripheral edema. No clubbing, no cyanosis. Peripheral pulses are intact. Results - Laboratory Findings CBC and BMP: 09/13/24 06:19 09/13/24 06:19 PT/INR, D-dimer PT 10.9 sec (10.0-12.5) 09/12/24 16:01 INR 1.0 (<1.2) 09/12/24 16:01 Abnormal lab findings: Abnormal Labs 09/12/24 09/12/24 09/12/24 16:00 16:01 16:01 WBC 11.9 H RBC MCV 102.3 H Plt Count Neutrophils # 10.0 H Lymphocytes # 0.8 L APTT 33.7 H Sodium Chloride Glucose Plasma Lactic Acid [place] Total Bilirubin Troponin I Total Protein Albumin RSV (PCR) Detected A 09/12/24 09/12/24 09/12/24 16:01 16:01 16:01 WBC RBC MCV Plt Count Neutrophils # Lymphocytes # APTT Sodium 135 L Chloride 96 L Glucose 110 H Plasma Lactic Acid [place] 2.2 H* Total Bilirubin 1.8 H Troponin I 0.037 H* Total Protein Albumin RSV (PCR) 09/13/24 09/13/24 06:19 06:19 WBC RBC 4.19 L MCV 102.0 H Plt Count 146 L Neutrophils # 7.9 H Lymphocytes # 0.5 L APTT Sodium 134 L Chloride Glucose 214 H Plasma Lactic Acid [place] Total Bilirubin Troponin I Total Protein 5.9 L Albumin 3.3 L RSV (PCR) - Diagnostic Findings Chest x-ray: image reviewed Assessment and Plan Assessment: Acute on chronic hypoxemic respiratory failure secondary to an acute exacerbation of chronic obstructive pulmonary disease complicated by RSV, diastolic congestive heart failure, atrial fibrillation with RVR Acute RSV infection Acute exacerbation of diastolic congestive heart failure New onset atrial fibrillation with a rapid ventricular response Mild troponin leak secondary to above Chronic obstructive pulmonary disease With home oxygen mainly at night Hypertension Hyperlipidemia Hypothyroidism Gastroesophageal reflux disease Plan: The patient was seen and evaluated Imaging, labs and medications reviewed Initiated on a heparin drip Initiated on a Cardizem drip Add DuoNeb inhalations Add Symbicort Add Solu-Medrol Continue ceftriaxone and azithromycin Check a procalcitonin Cardiology consult Titrate the FiO2 as tolerated Admit to the cardiac floor with telemetry We will continue to follow and make further recommendations based on his clinical status I have personally seen and examined the patient, performed the documentation and the assessment and plan as written. Number of minutes spent on the visit: 20 Dictation was produced using [employer] dictation software. Please excuse any grammatical, word or spelling errors. Time with Patient: Greater than 30
--- NOTE | 2024-09-13 12:12 | P.PN ---
Subjective Progress Note Date: 09/13/24 84-year-old male, history of COPD, hypertension, hyperlipidemia, hypothyroidism, CAD/history of [place], presents to the ER for evaluation this man presents today for evaluation of severe shortness of breath fevers for a week shortness of breath with exertional dyspnea history of COPD on oxygen just at night. Patient's dyspnea has been increased pulse ox significantly low especially on arrival to the ER off his oxygen in the low 80s. Patient denying any current chest pain but has felt like he has a cold with cough congestion and shortness of breath going on his third or fourth day. No improvement Blood work completed in ED reveals a WBC of 11.9, hemoglobin of 15.8 and platelet count of 161, sodium 135, potassium 4.3, BUNs/creatinine of 17/0.92, lactic acid elevated at 2.2 and troponin is elevated at 0.037, BNP of 4780 Viral screen is positive for RSV PCR Chest x-ray reveals infiltrate within the periphery of the left midlung zone 09/13/2024 Patient seen and evaluated; remains in ICU as 3 S. overflow; patient went into atrial fibrillation with RVR this morning; has been placed on IV Cardizem infusion and IV heparin; heart rate continues to remain in 120s; currently asymptomatic -Cardiology has been consulted -Patient to be transferred to selective care Objective - Vital Signs Vital signs: Vital Signs Temp 97.5 F L 09/12/24 15:52 Pulse 93 09/12/24 17:53 Resp 18 09/12/24 15:52 BP 129/77 09/12/24 15:52 Pulse Ox 92 L 09/12/24 16:00 FiO2 Intake & Output 09/12/24 09/12/24 09/13/24 06:59 18:59 06:59 Weight 70.307 kg - Exam Head exam: Present: atraumatic, normocephalic, normal inspection Eye exam: Present: normal appearance, PERRL, EOMI. Absent: scleral icterus, conjunctival injection, periorbital swelling ENT exam: Present: normal exam, mucous membranes moist Neck exam: Present: normal inspection. Absent: tenderness, meningismus, lymphadenopathy Respiratory exam: Present: respiratory distress, wheezes, accessory muscle use, decreased breath sounds, prolonged expiratory. Absent: rales, rhonchi, stridor Cardiovascular Exam: Present: normal rhythm, tachycardia, normal heart sounds. Absent: systolic murmur, diastolic murmur, rubs, gallop, clicks GI/Abdominal exam: Present: soft, normal bowel sounds. Absent: distended, tenderness, guarding, rebound, rigid Extremities exam: Present: normal inspection, full ROM, normal capillary refill. Absent: tenderness, pedal edema, joint swelling, calf tenderness Back exam: Present: normal inspection Neurological exam: Present: alert, oriented X3, CN II-XII intact Psychiatric exam: Present: normal affect, normal mood Skin exam: Present: warm, dry, intact, normal color. Absent: rash - Labs CBC & Chem 7: 09/13/24 06:19 09/13/24 06:19 Labs: Abnormal Lab Results - Last 24 Hours (Table) 09/12/24 09/12/24 09/12/24 Range/Units 16:00 16:01 16:01 WBC 11.9 H (3.8-10.6) k/uL MCV 102.3 H (80.0-100.0) fL Neutrophils # 10.0 H (1.3-7.7) k/uL Lymphocytes # 0.8 L (1.0-4.8) k/uL APTT 33.7 H (22.0-30.0) sec Sodium (137-145) mmol/L Chloride (98-107) mmol/L Glucose (74-99) mg/dL Plasma Lactic Acid [place] (0.7-2.0) mmol/L Total Bilirubin (0.2-1.3) mg/dL Troponin I (0.000-0.034) ng/mL RSV (PCR) Detected A (Not Detectd) 09/12/24 09/12/24 09/12/24 Range/Units 16:01 16:01 16:01 WBC (3.8-10.6) k/uL MCV (80.0-100.0) fL Neutrophils # (1.3-7.7) k/uL Lymphocytes # (1.0-4.8) k/uL APTT (22.0-30.0) sec Sodium 135 L (137-145) mmol/L Chloride 96 L (98-107) mmol/L Glucose 110 H (74-99) mg/dL Plasma Lactic Acid [place] 2.2 H* (0.7-2.0) mmol/L Total Bilirubin 1.8 H (0.2-1.3) mg/dL Troponin I 0.037 H* (0.000-0.034) ng/mL RSV (PCR) (Not Detectd) Assessment and Plan Assessment: 1. Community-acquired pneumonia -Chest x-ray reveals pneumonia; patient has been placed on IV Rocephin and az ithromycin -Bronchodilator nebulizer treatments -Symptomatic treatment with antitussive therapy -Pulmonary consult in place 2. Acute RSV bronchiolitis; supportive care with bronchodilator nebulizers; IV steroids 3. Acute exacerbation COPD; patient has been placed on methylprednisone 60 mg IV every 6 hours; DuoNeb nebulizer treatments 4 times daily and as needed; patient remains on antibiotics for community-acquired pneumonia 4. Elevated troponin; initial troponin was found to be elevated at 0.037; repeat stat is within normal limit; likely related to pneumonia and COPD exacerbation 5. Hypertension; Toprol-XL 100 mg daily; valsartan 320 mg daily 6. Hyperlipidemia; Zetia 10 mg nightly; Crestor 10 mg every other day 7. CAD; stable on aspirin and Plavix 75 mg daily, Zetia 10 mg daily 8. Hypothyroidism; levothyroxine 50 mcg daily DVT prophylaxis; SCD/subcu heparin CODE STATUS; full code
[2024-09-13] MEDS: AZITHROMYCIN 500 MG TAB PO SCH (18:08)
[2024-09-14 07:55] LABS: Basophils % (A) 0 %; Eosinophils % (A) 0 %; HCT 43.1 % (39.0-53.0); HGB 13.9 gm/dL (13.0-17.5); Lymphocytes # (A) 0.7 k/uL (1.0-4.8); Lymphocytes % (A) 3 %; MCH 33.1 pg (25.0-35.0); MCHC 32.2 g/dL (31.0-37.0); Macrocytosis Slight; Mean Platelet Volume 10.7; Monocytes # (A) 0.3 k/uL (0-1.0); Monocytes % (A) 2 %; Neutrophils # (A) 21.8 k/uL (1.3-7.7); Neutrophils % (A) 95 %; Platelet Count 196 k/uL (150-450); RBC 4.19 m/uL (4.30-5.90); RDW 12.1 % (11.5-15.5); WBC 23.1 k/uL (3.8-10.6)
[2024-09-14 08:00] LABS: Prothrombin Time 11.3 sec (10.0-12.5)
[2024-09-14 13:06] LABS: T4, Free (Free Thyroxine) 1.58 ng/dL (0.78-2.19)
[2024-09-14] MEDS: DILTIAZEM 125 MG in SODIUM CHLORIDE 0.9% 100 ML IV SCH (13:08)
[2024-09-14] MEDS: METOPROLOL SUCCINATE (ER) 100 MG TAB.ER.24H PO SCH (13:29)
[2024-09-14] MEDS: MAGNESIUM SULFATE-D5W PMX 1 GM in DEXTROSE/WATER 1 100ML.BAG IVPB SCH (13:33)
[2024-09-14] MEDS: MORPHINE SULFATE 4 MG/ML SYRINGE IV PRN (13:33)
[2024-09-14] MEDS ORDERED: IPRATROPIUM-ALBUTEROL 3 ML NEB INHALATION PRN (15:07)
[2024-09-14] MEDS ORDERED: DEXTROSE 50% SYRINGE 50 ML IVP PRN ×2 (15:08)
[2024-09-14 15:49] LABS: Chol/HDL Ratio 3.74 Ratio; LDL Cholesterol,Calculated 97.7 mg/dL (0.0-131.0)
[2024-09-14] MEDS: SYMBICORT 160-4.5 MCG INHALER INHALATION SCH (15:57)
--- NOTE | 2024-09-14 16:37 | P.PN ---
Subjective Progress Note Date: 09/14/24 This is a pleasant 84-year-old male patient with a known history of oxygen depe ndent chronic obstructive pulmonary disease maintained on Trelegy and albuterol in the outpatient setting, former smoker. He follows with Dr. Bowers in the office. He also has a history of hypertension, hyperlipidemia, gastroesophageal reflux disease, hypothyroidism. He presented here to the emergency room yesterday with a 3 to 4-day history of increasing shortness of breath, cough and congestion. Was pulse ox readings were low at home in the 80s. Chest x-ray reveals evidence of COPD. There is a vague infiltrate within the periphery of the left midlung. White count 8.6. Hemoglobin 13.9. Platelets 146. Sodium 134. Potassium 3.8. Bicarb 25. BUN 17. Creatinine 0.74. Glucose 214. Troponins 0.037,. 0.032, 0.033. proBNP 4780. EKG reveals paroxysmal atrial fibrillation. His viral screen is positive for RSV. He is seen today in consultation in the emergency department. He is currently sitting up on the stretcher. Awake and alert in no acute distress. He is maintaining O2 saturations in the 90s on 3 L/min per nasal cannula. He is afebrile. He is tachycardic. On 09/14/2024, the patient is being seen for a follow-up. The patient was seen in consultation yesterday and today she is being seen for a follow-up. The patient came in with an acute on top of chronic hypoxic khanh failure secondary to acute RSV infection. The patient was not also atrial fibrillation with rapid ventricular response. The patient has noted diastolic heart failure. Her A-fib was other new onset and she had also an minimal troponin leak. For now, the patient remains on Cardizem drip at 10 mg an hour. She remains on IV heparin. She is on DuoNeb updrafts, Symbicort and IV Solu-Medrol 60 mg every 6 hours. She was also covered empirically with IV antibiotics. She is on a combination of Rocephin and Zithromax. For now, the patient has no specific complaints. Feeling better compared to yesterday. D-dimer is at 0.42. Procalcitonin level is at 0.12. The white cell count of 23 when he was 15.9 and the platelet count of 196. Rest of the electrolytes were all within normal limits. She is currently on 3 Suboxone by nasal cannula with a pulse ox of 92%. Objective - Vital Signs Vital signs: Vital Signs Temp 97.8 F 09/14/24 05:59 Pulse 85 09/14/24 08:05 Resp 20 09/14/24 08:05 BP 152/80 09/14/24 08:05 Pulse Ox 87 L 09/14/24 08:05 FiO2 Intake & Output 09/13/24 09/14/24 09/14/24 18:59 06:59 18:59 Intake Total 3048.731 974.833 Balance 3048.731 974.833 Intake: Intake, IV Titration 2398.731 974.833 Amount Azithromycin 500 mg In 250 Sodium Chloride 0.9% 250 ml @ 250 mls/hr IVPB ONCE STA Rx#:[id number] Diltiazem 125 mg In 89.25 74.833 Sodium Chloride 0.9% 100 ml @ 5 MG/HR 5 mls/hr IV .Q24H [facility] Rx#:[id number] Heparin Sod,Pork in 0.45% 59.481 NaCl 25,000 unit In 0.45 % NaCl 1 250ml.bag @ 12 UNITS/KG/HR 8.437 mls/hr IV .Q24H [facility] Rx#: [id number] Magnesium Sulfate-D5w Pmx 100 1 gm In Dextrose/Water 1 100ml.bag @ 100 mls/hr IVPB Q1H [facility] Rx#: [id number] Sodium Chloride 0.9% 1, 900 000 ml @ 130 mls/hr IV . Q7H42M [facility] Rx#:[id number] Sodium Chloride 0.9% 1, 900 900 000 ml @ 75 mls/hr IV . [id number] [facility] Rx#:[id number] cefTRIAXone 2 gm In 100 Sodium Chloride 0.9% 50 ml @ 100 mls/hr IVPB Q24HR [facility] Rx#:[id number] Oral 650 Other: # Voids 2 1 # Bowel Movements 1 - Exam GENERAL EXAM: Alert, pleasant, dyspneic 84-year-old male, on 3 L nasal cannula, fairly comfortable in no apparent distress. HEAD: Normocephalic. EYES: Normal reaction of pupils, equal size. NOSE: Clear with pink turbinates. THROAT: No erythema or exudates. NECK: No masses, no JVD. CHEST: No chest wall deformity. LUNGS: Equal air entry with bilateral scattered rhonchi, wheeze, diminished. CVS: S1 and S2 normal with no audible murmur, irregular rhythm. Tachycardic. ABDOMEN: No hepatosplenomegaly, normal bowel sounds, no guarding or rigidity. SPINE: No scoliosis or deformity SKIN: No rashes CENTRAL NERVOUS SYSTEM: No focal deficits, tone is normal in all 4 extremities. EXTREMITIES: There is no peripheral edema. No clubbing, no cyanosis. Peripheral pulses are intact. - Labs CBC & Chem 7: 09/14/24 06:54 09/13/24 06:19 Labs: Abnormal Lab Results - Last 24 Hours (Table) 09/13/24 09/13/24 09/14/24 Range/Units 15:20 21:23 06:54 WBC 23.1 H (3.8-10.6) k/uL RBC 4.19 L (4.30-5.90) m/uL MCV 103.0 H (80.0-100.0) fL Neutrophils # 21.8 H (1.3-7.7) k/uL Lymphocytes # 0.7 L (1.0-4.8) k/uL APTT 88.5 H 57.4 H (22.0-30.0) sec Microbiology - Last 24 Hours (Table) 09/12/24 18:15 Blood Culture - Preliminary Blood Assessment and Plan Plan: Acute on chronic hypoxemic respiratory failure secondary to an acute exacerbation of chronic obstructive pulmonary disease complicated by RSV, diastolic congestive heart failure, atrial fibrillation with RVR, currently on 3 days of oxygen by nasal cannula, clinically slightly improved compared to yesterday. Previous echocardiogram from 2022 showed a preserved LV function with a normal ejection fraction of 55 to 60% and the patient also had grade 1 diastolic dysfunction, moderate degree of pulmonary hypertension with estimated right ventricular systolic pressure of around 50. Acute RSV infection Acute exacerbation of diastolic congestive heart failure New onset atrial fibrillation with a rapid ventricular response , The patient is currently on a Cardizem drip running at 10 mg an hour. The cardiac rhythm is MAT/Afib. The patient is also covered with IV heparin drip. Mild troponin leak secondary to above Chronic obstructive pulmonary disease , home oxygen mainly at night Hypertension Hyperlipidemia Hypothyroidism Gastroesophageal reflux disease Acute leukocytosis, will monitor Plan: The patient is stable on 3 L of oxygen by nasal cannula Continue IV heparin Continue IV Cardizem for rate control Cardiology consultation regarding new onset atrial fibrillation Continue Symbicort Continue IV Solu-Medrol Antibiotic coverage is empiric at this point in time, procalcitonin level is not elevated at 0.12. Monitor the white cell count Admit to the cardiac floor with telemetry We will continue to follow and make further recommendations based on his clinical status Time with Patient: Greater than 30
[2024-09-14] MEDS: IPRATROPIUM-ALBUTEROL 3 ML NEB INHALATION SCH (18:28)
[2024-09-14 18:31] LABS: Glucose,Whole Blood 255 mg/dL (70-110)
[2024-09-14] MEDS: INSULIN LISPRO (HumaLOG) 100 UNIT/ML 10 mL VL SQ SCH (18:53)
[2024-09-14] MEDS ORDERED: BUDESONIDE 1 MG/2 ML NEBU INHALATION SCH (20:00)
[2024-09-14] MEDS ORDERED: LOSARTAN 50 MG TAB PO SCH (21:00)
[2024-09-14] MEDS ORDERED: METOPROLOL SUCCINATE (ER) 100 MG TAB.ER.24H PO SCH (21:00)
[2024-09-14] MEDS: DILTIAZEM DRIP BOLUS FROM BAG 1 MG SOLN IV ONE (21:20)
[2024-09-14 21:35] LABS: Glucose,Whole Blood 160 mg/dL (70-110)
[2024-09-14] MEDS: ATORVASTATIN 40 MG TAB PO SCH (22:31)
[2024-09-14] MEDS: APIXABAN 5 MG TAB PO SCH (22:31)
[2024-09-14] MEDS: LOSARTAN 50 MG TAB PO SCH (22:31)
--- NOTE | 2024-09-14 23:01 | PN ---
PROGRESS NOTE DATE OF SERVICE: 09/14/2024 SUBJECTIVE: This is an 84-year-old gentleman with a past medical history of multiple medical problems, admitted with COPD and RSV. Has possible pneumonia in the right lower lobe also. The patient is on broad-spectrum IV antibiotics. The patient with significant shortness of breath and cough also. The patient has not taken the RSV vaccine this year. PAST MEDICAL HISTORY: Reviewed. REVIEW OF SYSTEMS: Fourteen-point review is negative except as mentioned earlier. CURRENT MEDICATIONS ARE: Reviewed. PHYSICAL EXAMINATION: VITAL SIGNS: Pulse 85, blood pressure 155/73, respirations 20. HEENT: Conjunctivae normal. NECK: No JVD. CARDIOVASCULAR: S1, S2. RESPIRATIONS: A few scattered rhonchi. ABDOMEN: Soft. NERVOUS SYSTEM: Nonfocal. LABORATORY DATA: D-dimer 0.42. WBC 28.1. ASSESSMENT: 1. Chronic obstructive pulmonary disease with acute exacerbation as well as acute respiratory syncytial virus infection and acute respiratory syncytial virus pneumonia and right lower lobe pneumonia. 2. Possible viral pneumonia versus gram-negative pneumonia. 3. Gastroesophageal reflux disease. 4. Hypertension. 5. Hyperlipidemia. 6. History of degenerative joint disease. 7. History of colitis. RECOMMENDATIONS: This 84-year-old gentleman presented with multiple complex medical issues. We will monitor the patient closely. Continue with Rocephin. Cultures are negative. Prognosis is guarded because of multiple complex medical issues. Continue with the bronchodilators and also IV steroids. Prognosis is guarded. Further recommendations to follow. I will add Symbicort to the current regimen. MMODL / IJN: [id number] /
[2024-09-15] MEDS: DILTIAZEM 125 MG in SODIUM CHLORIDE 0.9% 100 ML IV SCH (04:03)
[2024-09-15] MEDS: PANTOPRAZOLE 40 MG TABLET PO SCH (05:23)
[2024-09-15 06:00] LABS: Glucose,Whole Blood 186 mg/dL (70-110)
[2024-09-15] MEDS: ASPIRIN 81 MG PO SCH (09:58)
[2024-09-15 11:27] LABS: Glucose,Whole Blood 252 mg/dL (70-110)
[2024-09-15] MEDS ORDERED: guaiFENesin SYRUP 100MG/5ML 200 MG/10 ML CUP PO PRN (15:09)
[2024-09-15] MEDS ORDERED: MECLIZINE 25 MG TAB PO PRN (15:09)
--- NOTE | 2024-09-15 15:14 | CA ---
Transthoracic Echo Report Name: Alban Rosenthal Age: 84 Gender: M : 1940 Exam Date: 09/15/2024 10:58 Exam Location: [facility] Ht (in): 71 Wt (lb): 155 Ordering Physician: uJdah Pantoja MD ([email or web address]) Attending/Referring Phys: [employer] Yann Subramanian RDCS Procedure CPT: Indications: afib rvr Cardiac Hx: Technical Quality: Very technically difficult study Contrast 1: Total Dose (mL): Contrast 2: Total Dose (mL): MEASUREMENTS (Male / Female) Normal Values 2D ECHO LV Diastolic Diameter PLAX 5.4 cm 4.2 - 5.9 / 3.9 - 5.3 cm LV Systolic Diameter PLAX 4.9 cm IVS Diastolic Thickness 1.1 cm 0.6 - 1.0 / 0.6 - 0.9 cm LVPW Diastolic Thickness 1.1 cm 0.6 - 1.0 / 0.6 - 0.9 cm LV Relative Wall Thickness 0.4 RV Internal Dim ED PLAX 3.9 cm LVOT Diameter 1.9 cm Aortic Root Diameter 3.3 cm LA Systolic Diameter LX 4.7 cm 3.0 - 4.0 / 2.7 - 3.8 cm DOPPLER MV Peak Velocity 118.9 cm/s MV Peak Gradient 5.7 mmHg MV Mean Velocity 64.3 cm/s MV Mean Gradient 2.4 mmHg MV Velocity Time Integral 26.5 cm MV Area PHT 3.7 cm??? MR Peak Velocity 564.2 cm/s MR Peak Gradient 127.3 mmHg Mitral E Point Velocity 73.2 cm/s Mitral A Point Velocity 44.7 cm/s Mitral E to A Ratio 1.6 MV Deceleration Time 169.9 ms TR Peak Velocity 328.7 cm/s TR Peak Gradient 43.2 mmHg Right Atrial Pressure 15.0 mmHg Pulmonary Artery Systolic Pressu 58.2 mmHg Right Ventricular Systolic Press 58.2 mmHg FINDINGS Left Ventricle Left ventricular ejection fraction is estimated at 30 %. Left ventricle not well visualized. Right Ventricle Mild right ventricular dilatation. Severe pulmonary hypertension. Right ventricular systolic pressure estimated at 58 mm hg. Right Atrium Right atrium not well visualized. Left Atrium Left atrium not well visualized. Mitral Valve Mitral valve thickened. Mitral annular calcification. No mitral stenosis. Mild mitral regurgitation. Aortic Valve Aortic valve not well visualized. Tricuspid Valve Structurally normal tricuspid valve. No tricuspid stenosis. Mild tricuspid regurgitation. Pulmonic Valve Structurally normal pulmonic valve. . No pulmonic stenosis. Trace pulmonic regurgitation. Pericardium No pericardial or pleural effusion. Aorta Normal size aortic root. CONCLUSIONS Indication: Atrial fibrillation with RVR Reduced LV systolic function ejection fraction 30% inferior septal hypokinesis Previewed by: Dr. Te Brown MD (Electronically Signed) Final Date: 15 September 2024 15:13
--- NOTE | 2024-09-15 15:41 | P.CRDCN ---
History of Present Illness Consult date: 09/14/24 History of present illness: HISTORY OF PRESENTING ILLNESS: 83-year-old with possible history of CAD status post heart cath showing CHIEF DESIGN DRAFTER of RCA by Dr. Mancia. He also has prior history of COPD dyslipidemia hypertension osteoarthritis kyphoscoliosis. In 03/2023 he was admitted to the hospital for kyphoplasty. Postoperatively he had EKG changes and he had mild elevation of troponin and was treated for postoperative IA with medical management and IV heparin drip. His echo at that time showed preserved LV systolic function with inferior wall hypokinesis which appeared to be old. This time he presented to the hospital because of 2 to 3 days of increased worsening shortness of breath, cough and congestion. On admission she was noticed to have RSV infection. Saturating 90% on 3 L nasal cannula, on admission there was also concerns of possible atrial fibrillation for which she was started on Cardizem drip and IV heparin drip. Cardiology was consulted for atrial fibrillation management. Admission Labs: Hb 15.8, BUN 17, creatinine 0.9, A1c 5.6, NT-proBNP 4700, troponins were negative, LDL 97, TSH is low at 0.3, free T4 is 1.5, RSV positive Admission EKG: Atrial fibrillation with heart rate 106 bpm, moderate intraventricular conduction delay. Nonspecific ST changes. Imaging: Chest x-ray does not show any signs of consolidation or congestion. Mild scarring noticed in right mid lung base. REVIEW OF SYSTEMS: 14 point review of system is negative except what is mentioned above in HPI. PHYSICAL EXAMINATION: Neck: Brisk carotid upstroke, no jugular venous distention. Lungs: Mild wheezing and mild rhonchi noticed in lung toure, Heart: Irregularly irregular pulse, mild systolic murmur audible Abdomen: Soft nontender, positive bowel sounds. Extremities: No edema, intact distal pulses. Neuro: Alert, oritented, no focal deficits. Detailed neuro exam was not performed. ASSESSMENT: # Atrial fibrillation with RVR on admission, currently sinus rhythm. Paroxysmal atrial fibrillation is new on this admission/2024 # RSV infection # Prior history of CAD with known CHIEF DESIGN DRAFTER of RCA # Status post kyphoplasty # Essential hypertension # Dyslipidemia # COPD PLAN: Continue aspirin 81 mg, Eliquis 5 mg twice daily Discontinue IV heparin drip, continue Lipitor 40 mg daily, continue Cardizem drip Obtain echocardiogram Further recommendations to follow Monitor telemetry, monitor electrolytes Judah Pantoja MD, FACC, RPVI Thank you for allowing [facility] to participate in this patient's care. Feel free to reach out in case of any followup questions. Past Medical History Past Medical History: Atrial Fibrillation, Coronary Artery Disease (CAD), Cancer, COPD, GERD/Reflux, Hyperlipidemia, Hypertension, Myocardial Infarction (IA), Osteoarthritis (OA), Thyroid Disorder Additional Past Medical History / Comment(s): colitis , protacatits,skin cancer Last Myocardial Infarction Date:: 2020 History of Any Multi-Drug Resistant Organisms: None Reported Past Surgical History: Appendectomy Additional Past Surgical History / Comment(s): detacted retina rt ,colonoscopy with polyps removed, Past Anesthesia/Blood Transfusion Reactions: No Reported Reaction Past Psychological History: No Psychological Hx Reported Smoking Status: Former smoker Past Alcohol Use History: Occasional Additional Past Alcohol Use History / Comment(s): quit 45 yrs ago, 2 glasses of wine daily,occasional beer Past Drug Use History: None Reported - Past Family History Brother(s) Family Medical History: Cancer Additional Family Medical History / Comment(s): prostate Medications and Allergies Home Medications Medication Instructions Recorded Confirmed Type Albuterol Sulfate [Ventolin HFA] 2 puff INHALATION RT-Q4H PRN 03/22/23 09/12/24 History Aspirin [Adult Low Dose Aspirin EC] 81 mg PO DAILY 03/22/23 09/12/24 History Bumetanide 1 mg PO DAILY 03/22/23 09/12/24 History Clopidogrel [Plavix] 75 mg PO DAILY 03/22/23 09/12/24 History Fluticasone Propionate 2 spr EA NOSTRIL DAILY PRN 03/22/23 09/12/24 History [Fluticasone Propionate [place] 50 mcg Nasal [place]] Fluticasone/Umeclidin/Vilanter 1 puff INHALATION RT-DAILY 03/22/23 09/12/24 History [Trelegy Ellipta 200-62.5-25] Folic Acid 1 mg PO DAILY 03/22/23 09/12/24 History Levothyroxine Sodium [Synthroid] 50 mcg PO DAILY 03/22/23 09/12/24 History Meclizine [Antivert] 25 mg PO TID PRN 03/22/23 09/12/24 History Metoprolol Succinate (ER) [Toprol 100 mg PO HS 03/22/23 09/12/24 History Xl] Omeprazole 20 mg PO DAILY 03/22/23 09/12/24 History Potassium Chloride [Klor-Con 10 ER] 1 tab PO TID 03/22/23 09/12/24 History Valsartan 320 mg PO DAILY 03/22/23 09/12/24 History sulfaSALAzine [Sulfasalazine] 1,000 mg PO BID 03/22/23 09/12/24 History Albuterol Inhaler [Ventolin Hfa 2 puff INHALATION RT-HS 09/12/24 09/12/24 History Inhaler] Albuterol Nebulized [Ventolin 2.5 mg INHALATION RT-QID PRN 09/12/24 09/12/24 History Nebulized] Cholecalciferol [Vitamin D3 (25 25 mcg PO DAILY 09/12/24 09/12/24 History Mcg = 1000 Iu)] Cyanocobalamin (Vitamin B-12) 5,000 mcg PO DAILY 09/12/24 09/12/24 History [Vitamin B-12] Ezetimibe [Zetia] 10 mg PO HS 09/12/24 09/12/24 History Multivit-Min/FA/Lycopen/Lutein 1 tab PO DAILY 09/12/24 09/12/24 History [Centrum Silver Tablet] [place]-3 600mg 1 cap PO DAILY 09/12/24 09/12/24 History Rosuvastatin [Crestor] 10 mg PO Q2D 09/12/24 09/12/24 History Ubidecarenone [Coenzyme Q10] 200 mg PO DAILY 09/12/24 09/12/24 History guaiFENesin 400 mg PO Q6H PRN 09/12/24 09/12/24 History Allergies Allergy/AdvReac Type Severity Reaction Status Date / Time No Known Allergies Allergy Verified 09/12/24 18:53 Physical Exam Vitals: Vital Signs Temp Pulse Pulse Resp BP BP Pulse Ox 09/15/24 13:05 85 88 L 09/15/24 12:48 83 09/15/24 12:22 90 L 09/15/24 12:17 87 L 09/15/24 12:14 82 22 188/76 83 L 09/15/24 09:56 98 F 87 22 190/72 90 L 09/15/24 08:58 79 09/15/24 08:47 84 09/15/24 04:05 97.4 F L 81 18 153/75 87 L 09/15/24 01:11 92 09/14/24 23:36 97.4 F L 92 18 180/90 94 L 09/14/24 22:50 97.8 F 78 19 154/72 93 L 09/14/24 18:38 77 09/14/24 18:29 77 09/14/24 16:00 97.6 F 80 20 153/79 92 L Intake and Output 09/15/24 09/15/24 09/15/24 06:59 14:59 22:59 Intake Total 600 260 Balance 600 260 Intake: IV 20 Invasive Line 2 20 Intake, IV Titration 60 Amount Diltiazem 125 mg In 60 Sodium Chloride 0.9% 100 ml @ 10 MG/HR 10 mls/hr IV .[id number] [facility] Rx#: [id number] Oral 540 240 Other: Voiding Method Urinal Urinal # Voids 1 2 # Bowel Movements 1 Weight 71.9 kg Results 09/14/24 06:54 09/13/24 06:19 Lipids 09/14/24 Range/Units 06:54 Triglycerides 105.00 (0.00-149.00) mg/dL Cholesterol 162.00 (0.00-200.00) mg/dL HDL Cholesterol 43.30 (40.00-60.00) mg/dL Cholesterol/HDL Ratio 3.74 Ratio Current Medications Generic Name Dose Route Start Last Admin Trade Name Freq PRN Reason Stop Dose Admin Acetaminophen 650 mg 09/12/24 17:37 Acetaminophen Tab 325 Mg Tab PO Q6HR PRN Mild Pain or Fever > 100.5 Albuterol/Ipratropium 3 ml 09/14/24 15:07 Ipratropium-Albuterol 3 Ml Neb INHALATION RT-TID PRN Shortness Of Breath Or Wheezing Albuterol/Ipratropium 3 ml 09/14/24 20:00 09/15/24 12:48 Ipratropium-Albuterol 3 Ml Neb INHALATION 3 ml RT-TID [facility] Administration Amlodipine Besylate 10 mg 09/15/24 16:00 Amlodipine 10 Mg Tab PO DAILY [facility] Apixaban 5 mg 09/14/24 21:00 09/15/24 09:58 Apixaban 5 Mg Tab PO 5 mg BID [facility] Administration Protocol Aspirin 81 mg 09/15/24 09:00 09/15/24 09:58 Aspirin 81 Mg PO 81 mg DAILY [facility] Administration Atorvastatin Calcium 40 mg 09/14/24 21:00 09/14/24 22:31 Atorvastatin 40 Mg Tab PO 40 mg HS [facility] Administration Budesonide/Formoterol Fumarate 2 puff 09/14/24 15:06 09/15/24 08:47 Symbicort 160-4.5 Mcg Inhaler INHALATION 2 puff RT-BID [facility] Administration Bumetanide 1 mg 09/16/24 09:00 Bumetanide 1 Mg Tab PO DAILY [facility] Cholecalciferol 25 mcg 09/16/24 09:00 Cholecalciferol 25 Mcg (1000 Iu) Tablet PO DAILY [facility] Clopidogrel Bisulfate 75 mg 09/16/24 09:00 Clopidogrel 75 Mg Tab PO DAILY [facility] Cyanocobalamin 1,000 mcg 09/16/24 09:00 Cyanocobalamin 500 Mcg Tab PO DAILY [facility] Dextrose/Water 25 ml 09/14/24 15:08 Dextrose 50% Syringe 50 Ml IVP PER PROTOCOL PRN Hypoglycemia Protocol Dextrose/Water 50 ml 09/14/24 15:08 Dextrose 50% Syringe 50 Ml IVP PER PROTOCOL PRN Hypoglycemia Protocol Ezetimibe 10 mg 09/15/24 21:00 Ezetimibe 10 Mg Tab PO HS [facility] Fluconazole 200 mg 09/15/24 16:00 Fluconazole 100 Mg Tab PO 09/15/24 16:01 ONCE ONE Protocol Fluconazole 100 mg 09/16/24 09:00 Fluconazole 100 Mg Tab PO DAILY [facility] Protocol Fluticasone Propionate 2 spray 09/15/24 15:09 Fluticasone Nasal 50mcg/[place] 16gm Btl EA NOSTRIL DAILY PRN Allergy Symptoms Folic Acid 1 mg 09/16/24 09:00 Folic Acid 1 Mg Tab PO DAILY [facility] Guaifenesin 400 mg 09/15/24 15:09 Guaifenesin Syrup 100mg/5ml 200 Mg/10 Ml Cup PO Q6H PRN Congestion Ceftriaxone Sodium 2 gm/ 50 mls @ 100 mls/hr 09/13/24 09:00 09/15/24 09:58 Sodium Chloride IVPB 09/16/24 09:29 100 mls/hr Q24HR [facility] Administration Protocol Diltiazem HCl 125 mg/ Sodium 125 mls @ 10 mls/hr 09/14/24 22:43 09/15/24 12:05 Chloride IV Not Given .[id number] [facility] 10 MG/HR Insulin Human Lispro 0 unit 09/14/24 17:30 09/15/24 12:19 Insulin Lispro (Humalog) 100 Unit/Ml 10 Ml Vl SQ 6 unit ACHS [facility] Administration Protocol Levothyroxine Sodium 50 mcg 09/16/24 06:30 Levothyroxine 50 Mcg Tab PO DAILY@0630 [facility] Losartan Potassium 100 mg 09/14/24 21:00 09/15/24 09:58 Losartan 50 Mg Tab PO 100 mg BID [facility] Administration Meclizine HCl 25 mg 09/15/24 15:09 Meclizine 25 Mg Tab PO TID PRN dizzy/motion sickness Methylprednisolone Sodium Succinate 60 mg 09/13/24 00:00 09/15/24 12:18 Methylprednisolone Sod Succi 125 Mg/2 Ml Vial IV 60 mg Q6HR [facility] Administration Metoprolol Succinate 100 mg 09/14/24 13:15 09/15/24 09:58 Metoprolol Succinate (Er) 100 Mg Tab.Er.24h PO 100 mg DAILY [facility] Administration Morphine Sulfate 4 mg 09/12/24 17:37 09/14/24 13:33 Morphine Sulfate 4 Mg/Ml Syringe IV 4 mg Q4HR PRN Administration Severe Pain (Scale 7 to 10) Multivitamins 1 each 09/16/24 09:00 Multivitamins, Thera 1 Each Tab PO DAILY [facility] Naloxone HCl 0.2 mg 09/12/24 17:37 Naloxone 0.4 Mg/Ml 1 Ml Vial IV Q2M PRN Opioid Reversal Non-Formulary Medication 10 mg 09/15/24 15:15 Rosuvastatin PO Q2D [facility] Ondansetron HCl 4 mg 09/12/24 17:37 Ondansetron 4 Mg/2 Ml Vial IVP Q8HR PRN Nausea And Vomiting Pantoprazole Sodium 40 mg 09/15/24 07:30 09/15/24 05:23 Pantoprazole 40 Mg Tablet PO 40 mg AC-[id number] [facility] Administration Potassium Chloride 1 meq 09/15/24 16:00 Potassium Chloride Er 10 Meq Tab.Er.Prt PO TID [facility] Sulfasalazine 1,000 mg 09/15/24 21:00 Sulfasalazine 500 Mg Tab PO 12/23/24 20:59 BID [facility] Protocol Intake and Output 04/01/25 04/01/25 04/01/25 06:59 14:59 22:59 Intake Total 600 260 Balance 600 260 Intake: IV 20 Invasive Line 2 20 Intake, IV Titration 60 Amount Diltiazem 125 mg In 60 Sodium Chloride 0.9% 100 ml @ 10 MG/HR 10 mls/hr IV .[id number] [facility] Rx#: [id number] Oral 540 240 Other: Voiding Method Urinal Urinal # Voids 1 2 # Bowel Movements 1 Weight 71.9 kg 09/14/24 06:54 09/13/24 06:19
--- NOTE | 2024-09-15 15:43 | P.PN ---
Subjective Progress Note Date: 09/15/24 This is a pleasant 84-year-old male patient with a known history of oxygen depe ndent chronic obstructive pulmonary disease maintained on Trelegy and albuterol in the outpatient setting, former smoker. He follows with Dr. Bowers in the office. He also has a history of hypertension, hyperlipidemia, gastroesophageal reflux disease, hypothyroidism. He presented here to the emergency room yesterday with a 3 to 4-day history of increasing shortness of breath, cough and congestion. Was pulse ox readings were low at home in the 80s. Chest x-ray reveals evidence of COPD. There is a vague infiltrate within the periphery of the left midlung. White count 8.6. Hemoglobin 13.9. Platelets 146. Sodium 134. Potassium 3.8. Bicarb 25. BUN 17. Creatinine 0.74. Glucose 214. Troponins 0.037,. 0.032, 0.033. proBNP 4780. EKG reveals paroxysmal atrial fibrillation. His viral screen is positive for RSV. He is seen today in consultation in the emergency department. He is currently sitting up on the stretcher. Awake and alert in no acute distress. He is maintaining O2 saturations in the 90s on 3 L/min per nasal cannula. He is afebrile. He is tachycardic. On 09/14/2024, the patient is being seen for a follow-up. The patient was seen in consultation yesterday and today she is being seen for a follow-up. The patient came in with an acute on top of chronic hypoxic khanh failure secondary to acute RSV infection. The patient was not also atrial fibrillation with rapid ventricular response. The patient has noted diastolic heart failure. Her A-fib was other new onset and she had also an minimal troponin leak. For now, the patient remains on Cardizem drip at 10 mg an hour. She remains on IV heparin. She is on DuoNeb updrafts, Symbicort and IV Solu-Medrol 60 mg every 6 hours. She was also covered empirically with IV antibiotics. She is on a combination of Rocephin and Zithromax. For now, the patient has no specific complaints. Feeling better compared to yesterday. D-dimer is at 0.42. Procalcitonin level is at 0.12. The white cell count of 23 when he was 15.9 and the platelet count of 196. Rest of the electrolytes were all within normal limits. She is currently on 3 liters of oxygen by nasal cannula with a pulse ox of 92%. On 09/15/2024, the patient is being seen for a follow-up. The patient continues to have difficulties in breathing, cough, congestion, bronchospasm and wheezing. The patient has an acute on top of chronic hypoxic respiratory failure/acute exacerbation of diastolic heart failure and acute RSV infection. The patient also had A-fib RVR at the time of admission. A repeat echocardiogram was done this morning and the patient has impaired LV function with an EF of around 30% and that ventricular systolic pressure of 58. The patient is currently on DuoNeb nebulized treatments [id number]-[id number]. Remains on Symbicort as maintenance 2 puffs twice a day. Remains on IV Solu-Medrol 60 mg every 6 hours and the patient is on empiric antibiotic coverage with IV Rocephin. Meanwhile, the patient was started on Diflucan regarding some Radha in his sputum, likely oropharyngeal candidiasis/colonization. The patient remains in atrial fibrillation. He is currently on Toprol-XL 100 mg p.o. daily. Remains on Cardi zem drip at 10 mg an hour. Remains on anticoagulation with Eliquis. Echocardiogram was noted. Objective - Vital Signs Vital signs: Vital Signs Temp 98 F 09/15/24 09:56 Pulse 87 09/15/24 09:56 Resp 22 09/15/24 09:56 BP 190/72 09/15/24 09:56 Pulse Ox 90 L 09/15/24 09:56 FiO2 Intake & Output 09/14/24 09/15/24 09/15/24 18:59 06:59 18:59 Intake Total 600 250 Balance 600 250 Weight 71.9 kg Intake: IV 10 Invasive Line 2 10 Intake, IV Titration 60 Amount Diltiazem 125 mg In 60 Sodium Chloride 0.9% 100 ml @ 10 MG/HR 10 mls/hr IV [id number] Rx#: [id number] Oral 540 240 Other: Voiding Method Urinal Urinal # Voids 1 - Exam GENERAL EXAM: Alert, pleasant, dyspneic 84-year-old male, on 3 L nasal cannula, fairly comfortable in no apparent distress. HEAD: Normocephalic. EYES: Normal reaction of pupils, equal size. NOSE: Clear with pink turbinates. THROAT: No erythema or exudates. NECK: No masses, no JVD. CHEST: No chest wall deformity. LUNGS: Equal air entry with bilateral scattered rhonchi, wheeze, diminished. CVS: S1 and S2 normal with no audible murmur, irregular rhythm. Remains atrial fibrillation ABDOMEN: No hepatosplenomegaly, normal bowel sounds, no guarding or rigidity. SPINE: No scoliosis or deformity SKIN: No rashes CENTRAL NERVOUS SYSTEM: No focal deficits, tone is normal in all 4 extremities. EXTREMITIES: There is no peripheral edema. No clubbing, no cyanosis. Peripheral pulses are intact. - Labs CBC & Chem 7: 09/14/24 06:54 09/13/24 06:19 Labs: Abnormal Lab Results - Last 24 Hours (Table) 09/14/24 09/14/24 09/14/24 Range/Units 06:54 18:29 21:34 POC Glucose (mg/dL) 255 H 160 H (70-110) mg/dL TSH 0.329 L (0.465-4.680) mIU/L 09/15/24 09/15/24 Range/Units 05:59 11:25 POC Glucose (mg/dL) 186 H 252 H (70-110) mg/dL TSH (0.465-4.680) mIU/L Microbiology - Last 24 Hours (Table) 09/14/24 11:54 Gram Stain - Preliminary Sputum Sputum Culture - Preliminary Radha albicans 09/12/24 18:15 Blood Culture - Preliminary Blood Assessment and Plan Plan: Acute on chronic hypoxemic respiratory failure secondary to an acute exacerb ation of chronic obstructive pulmonary disease complicated by RSV, systolic congestive heart failure, atrial fibrillation with RVR, currently on 3 liters of oxygen by nasal cannula, clinically slightly. Previous echocardiogram from 2022 showed a preserved LV function with a normal ejection fraction of 55 to 60% and the patient also had grade 1 diastolic dysfunction, moderate degree of pulmonary hypertension with estimated right ventricular systolic pressure of around 50. Repeat echocardiogram shows impairment LV function with an EF of around 30 to 35%. Acute RSV infection, remains on bronchodilators and steroids and empiric antibiotic coverage Acute exacerbation of systolic heart failure. Echocardiogram shows systolic heart failure with an ejection fraction of 30 to 35% with secondary pulm hypertension. New onset atrial fibrillation with a rapid ventricular response , The patient is currently on a Cardizem drip running at 10 mg an hour. Patient is on Toprol-XL 100 mg p.o. daily. The patient is also on anticoagulation with Eliquis. Mild troponin leak secondary to above Chronic obstructive pulmonary disease , home oxygen mainly at night Hypertension Hyperlipidemia Hypothyroidism Gastroesophageal reflux disease Acute leukocytosis, will monitor Plan: The patient is stable on 3 L of oxygen by nasal cannula Continue Symbicort Continue DuoNeb the writings on the clock Continue IV Solu-Medrol Antibiotic coverage is empiric at this point in time, procalcitonin level is not elevated at 0.12. The patient remains on IV Rocephin Monitor the white cell count Anticoagulation with Eliquis Toprol-XL 100 mg p.o. daily Cardizem drip for rate control, currently on 10 mg an hour Bumex 1 mg p.o. daily Admit to the cardiac floor with telemetry We will continue to follow and make further recommendations based on his clinical status Time with Patient: Greater than 30
--- NOTE | 2024-09-15 15:55 | P.PN ---
Subjective Progress Note Date: 09/15/24 HISTORY OF PRESENTING ILLNESS: 83-year-old with possible history of CAD status post heart cath showing [employer] by Dr. Mancia. He also has prior history of COPD dyslipidemia hypertension osteoarthritis kyphoscoliosis. In 03/2023 he was admitted to the hospital for kyphoplasty. Postoperatively he had EKG changes and he had mild elevation of troponin and was treated for postoperative LA with medical management and IV heparin drip. His echo at that time showed preserved LV systolic function with inferior wall hypokinesis which appeared to be old. This time he presented to the hospital because of 2 to 3 days of increased worsening shortness of breath, cough and congestion. On admission she was n oticed to have RSV infection. Saturating 90% on 3 L nasal cannula, on admission there was also concerns of possible atrial fibrillation for which she was started on Cardizem drip and IV heparin drip. Cardiology was consulted for atrial fibrillation management. Admission Labs: Hb 15.8, BUN 17, creatinine 0.9, A1c 5.6, NT-proBNP 4700, troponins were negative, LDL 97, TSH is low at 0.3, free T4 is 1.5, RSV positive Admission EKG: Atrial fibrillation with heart rate 106 bpm, moderate intraventri cular conduction delay. Nonspecific ST changes. Imaging: Chest x-ray does not show any signs of consolidation or congestion. Mild scarring noticed in right mid lung base. REVIEW OF SYSTEMS: 14 point review of system is negative except what is mentioned above in HPI. PHYSICAL EXAMINATION: Neck: Brisk carotid upstroke, no jugular venous distention. Lungs: Mild wheezing and mild rhonchi noticed in lung toure, Heart: Regular pulses, mild systolic murmur audible Abdomen: Soft nontender, positive bowel sounds. Extremities: No edema, intact distal pulses. Neuro: Alert, oritented, no focal deficits. Detailed neuro exam was not performed. ASSESSMENT: # Atrial fibrillation with RVR on admission, currently sinus rhythm. Paroxysmal atrial fibrillation is new on this admission/2024. # New worsening cardiomyopathy, likely stress-induced, EF 30 to 35%, likely due to below # RSV infection # Mild to moderate COPD # Prior history of CAD with known [employer] # Essential hypertension # Dyslipidemia PLAN: Continue aspirin 81 mg, Eliquis 5 mg twice daily Discontinue Plavix as patient is on aspirin and Eliquis now. Continue Lipitor and Zetia Discontinue Cardizem drip, continue metoprolol XL 100 mg daily Discontinue losartan and valsartan. Start Entresto 96/104 mg twice daily continue Bumex 1 mg daily which is home dose Start Aldactone 25 mg daily Start Farxiga 10 mg daily from tomorrow. Recommend outpatient stress testing to see if there is any new foci of ischemia contributing to this cardiomyopathy. Objective - Vital Signs Vital signs: Vital Signs Temp 98 F 09/15/24 09:56 Pulse 85 09/15/24 13:05 Resp 22 09/15/24 12:14 BP 188/76 09/15/24 12:14 Pulse Ox 88 L 09/15/24 13:05 FiO2 Intake & Output 09/14/24 09/15/24 09/15/24 18:59 06:59 18:59 Intake Total 600 260 Balance 600 260 Weight 71.9 kg Intake: IV 20 Invasive Line 2 20 Intake, IV Titration 60 Amount Diltiazem 125 mg In 60 Sodium Chloride 0.9% 100 ml @ 10 MG/HR 10 mls/hr IV .[id number] [facility] Rx#: [id number] Oral 540 240 Other: Voiding Method Urinal Urinal # Voids 1 2 # Bowel Movements 1 - Labs CBC & Chem 7: 09/14/24 06:54 09/13/24 06:19 Labs: Abnormal Lab Results - Last 24 Hours (Table) 09/14/24 09/14/24 09/15/24 Range/Units 18:29 21:34 05:59 POC Glucose (mg/dL) 255 H 160 H 186 H (70-110) mg/dL 09/15/24 Range/Units 11:25 POC Glucose (mg/dL) 252 H (70-110) mg/dL Microbiology - Last 24 Hours (Table) 09/14/24 11:54 Gram Stain - Preliminary Sputum Sputum Culture - Preliminary Radha albicans 09/12/24 18:15 Blood Culture - Preliminary Blood
[2024-09-15] MEDS ORDERED: POTASSIUM CHLORIDE ER 10 MEQ TAB.ER.PRT PO SCH (16:00)
[2024-09-15] MEDS ORDERED: amLODIPine 10 MG TAB PO SCH (16:00)
[2024-09-15 16:33] LABS: Glucose,Whole Blood 178 mg/dL (70-110)
[2024-09-15] MEDS: hydrALAZINE HCL 25 MG TAB PO SCH (16:51)
[2024-09-15] MEDS: FLUCONAZOLE 100 MG TAB PO ONE (16:51)
[2024-09-15] MEDS: ISOSORBIDE MONONITRATE ER 15 MG TAB PO SCH (16:52)
[2024-09-15] MEDS: NON FORMULARY DRUG (Rosuvastatin 10 MG Tablet) PO SCH (16:59)
[2024-09-15 19:12] LABS: Glucose,Whole Blood 190 mg/dL (70-110)
[2024-09-15] MEDS: sulfaSALAzine 500 MG TAB PO SCH (21:09)
[2024-09-15] MEDS: EZETIMIBE 10 MG TAB PO SCH (21:09)
--- NOTE | 2024-09-15 23:49 | PN ---
PROGRESS NOTE DATE OF SERVICE: 09/15/2024 SUBJECTIVE: This is an 84-year-old gentleman admitted with COPD acute exacerbation, acute RSV, and possible pneumonia, is being closely monitored at this time. White count is elevated. The patient is on IV steroids also. Legionella is negative. Sputum culture showed Radha albicans. PAST MEDICAL HISTORY: Reviewed. REVIEW OF SYSTEMS: A 14-point review of systems is negative except as mentioned earlier. CURRENT MEDICATIONS: Reviewed. PHYSICAL EXAMINATION: VITAL SIGNS: Pulse is 85, blood pressure 188/73, respirations 20. HEENT: Conjunctivae normal. NECK: No JVD. CARDIOVASCULAR: S1, S2. RESPIRATIONS: Breath sounds diminished at the bases. A few scattered rhonchi and crackles. ABDOMEN: Soft. NERVOUS SYSTEM: Nonfocal. LABORATORY DATA: Reviewed. ASSESSMENT: 1. Chronic obstructive pulmonary disease acute exacerbation with acute respiratory syncytial virus infection and possibly right lower lobe pneumonia, viral pneumonia versus gram-negative pneumonia. 2. Gastroesophageal reflux disease. 3. Hypertension. 4. Hyperlipidemia. 5. Degenerative joint disease. 6. History of colitis. RECOMMENDATIONS: Recommend to continue current management and continue symptomatic treatment. Continue with bronchodilators. Empiric antibiotics will be initiated from the ER. I would recommend IV steroids. Monitor labs closely. Add Norvasc to the current regimen. Ensure oxygenation. Closely follow with multiple consultants. Prognosis guarded. Further recommendations to follow. MMODL / IJN: [id number] /
[2024-09-16] MEDS: FLUTICASONE NASAL 50MCG/SPRAY 16GM BTL EA NOSTRIL PRN (06:08)
[2024-09-16] MEDS: LEVOTHYROXINE 25 MCG TAB PO SCH (06:08)
[2024-09-16 06:16] LABS: Glucose,Whole Blood 173 mg/dL (70-110)
[2024-09-16] MEDS ORDERED: LEVOTHYROXINE 50 MCG TAB PO SCH (06:30)
--- NOTE | 2024-09-16 08:17 | P.CONS ---
History of Present Illness - Reason for Consult Consult date: 09/15/24 RSV, pneumonia Requesting physician: María Holcomb - Chief Complaint Shortness of breath and cough x days - History of Present Illness Patient is a 84-year-old male with a past medical history significant for Atrial Fibrillation, Coronary Artery Disease (CAD), Cancer, COPD, GERD/Reflux, Hyperlipidemia, Hypertension, Myocardial Infarction (CA), Osteoarthritis (OA), Thyroid Disorder presenting to the hospital 3 days ago for evaluation of increasing shortness of breath cough and fever that apparently has been going on for couple of days though significantly get worse the day before presentation to the hospital and did have low O2 sats in the outpatient setting patient denies having any headache did have mild sore throat but no other URI symptoms complaining of mostly shortness of breath on exertion even at rest he did have a cough which is moderate intensity with occasional sputum production, persists some nausea but no vomiting no abdominal pain no diarrhea on presentation to the hospital patient was afebrile and no fever have been recorded subsequently patient was tachycardic but not hypotensive hypoxic currently on 6 L nasal current oxygen he did have a white count of 11.9 which was up to 23.1 yesterday no CBC was done today creatinine 0.74 liver enzymes are normal tested positive for RSV influenza and COVID was negative blood cultures so far negative sputum is growing Radha patient did have a chest x-ray diffuse interstitial opacity probably chronic acute interstitial possible done excluded patient has been treated with Rocephin Solu-Medrol infectious he was consulted today for RSV and pneumonia Review of Systems Positive point and negatives has been mentioned in the HPI, complete review of systems was performed and all other systems are negative Past Medical History Past Medical History: Atrial Fibrillation, Coronary Artery Disease (CAD), Cancer, COPD, GERD/Reflux, Hyperlipidemia, Hypertension, Myocardial Infarction (CA), Osteoarthritis (OA), Thyroid Disorder Additional Past Medical History / Comment(s): colitis , protacatits,skin cancer Last Myocardial Infarction Date:: 2020 History of Any Multi-Drug Resistant Organisms: None Reported Past Surgical History: Appendectomy Additional Past Surgical History / Comment(s): detacted retina rt ,colonoscopy with polyps removed, Past Anesthesia/Blood Transfusion Reactions: No Reported Reaction Past Psychological History: No Psychological Hx Reported Smoking Status: Former smoker Past Alcohol Use History: Occasional Additional Past Alcohol Use History / Comment(s): quit 45 yrs ago, 2 glasses of wine daily,occasional beer Past Drug Use History: None Reported - Past Family History Brother(s) Family Medical History: Cancer Additional Family Medical History / Comment(s): prostate Medications and Allergies Home Medications Medication Instructions Recorded Confirmed Type Albuterol Sulfate [Ventolin HFA] 2 puff INHALATION RT-Q4H PRN 03/22/23 09/12/24 History Aspirin [Adult Low Dose Aspirin EC] 81 mg PO DAILY 03/22/23 09/12/24 History Bumetanide 1 mg PO DAILY 03/22/23 09/12/24 History Clopidogrel [Plavix] 75 mg PO DAILY 03/22/23 09/12/24 History Fluticasone Propionate 2 spr EA NOSTRIL DAILY PRN 03/22/23 09/12/24 History [Fluticasone Propionate [place] 50 mcg Nasal [place]] Fluticasone/Umeclidin/Vilanter 1 puff INHALATION RT-DAILY 03/22/23 09/12/24 History [Trelegy Ellipta 200-62.5-25] Folic Acid 1 mg PO DAILY 03/22/23 09/12/24 History Levothyroxine Sodium [Synthroid] 50 mcg PO DAILY 03/22/23 09/12/24 History Meclizine [Antivert] 25 mg PO TID PRN 03/22/23 09/12/24 History Metoprolol Succinate (ER) [Toprol 100 mg PO HS 03/22/23 09/12/24 History Xl] Omeprazole 20 mg PO DAILY 03/22/23 09/12/24 History Potassium Chloride [Klor-Con 10 ER] 1 tab PO TID 03/22/23 09/12/24 History Valsartan 320 mg PO DAILY 03/22/23 09/12/24 History sulfaSALAzine [Sulfasalazine] 1,000 mg PO BID 03/22/23 09/12/24 History Albuterol Inhaler [Ventolin Hfa 2 puff INHALATION RT-HS 09/12/24 09/12/24 History Inhaler] Albuterol Nebulized [Ventolin 2.5 mg INHALATION RT-QID PRN 09/12/24 09/12/24 History Nebulized] Cholecalciferol [Vitamin D3 (25 25 mcg PO DAILY 09/12/24 09/12/24 History Mcg = 1000 Iu)] Cyanocobalamin (Vitamin B-12) 5,000 mcg PO DAILY 09/12/24 09/12/24 History [Vitamin B-12] Ezetimibe [Zetia] 10 mg PO HS 09/12/24 09/12/24 History Multivit-Min/FA/Lycopen/Lutein 1 tab PO DAILY 09/12/24 09/12/24 History [Centrum Silver Tablet] Osteen-3 600mg 1 cap PO DAILY 09/12/24 09/12/24 History Rosuvastatin [Crestor] 10 mg PO Q2D 09/12/24 09/12/24 History Ubidecarenone [Coenzyme Q10] 200 mg PO DAILY 09/12/24 09/12/24 History guaiFENesin 400 mg PO Q6H PRN 09/12/24 09/12/24 History Allergies Allergy/AdvReac Type Severity Reaction Status Date / Time No Known Allergies Allergy Verified 09/12/24 18:53 Physical Exam Vitals: Vital Signs Temp Pulse Pulse Resp BP BP Pulse Ox 09/15/24 13:05 85 88 L 09/15/24 12:48 83 09/15/24 12:22 90 L 09/15/24 12:17 87 L 09/15/24 12:14 82 22 188/76 83 L 09/15/24 09:56 98 F 87 22 190/72 90 L 09/15/24 08:58 79 09/15/24 08:47 84 09/15/24 04:05 97.4 F L 81 18 153/75 87 L 09/15/24 01:11 92 09/14/24 23:36 97.4 F L 92 18 180/90 94 L 09/14/24 22:50 97.8 F 78 19 154/72 93 L 09/14/24 18:38 77 09/14/24 18:29 77 09/14/24 16:00 97.6 F 80 20 153/79 92 L Intake and Output 09/15/24 09/15/24 09/15/24 06:59 14:59 22:59 Intake Total 600 260 Balance 600 260 Intake: IV 20 Invasive Line 2 20 Intake, IV Titration 60 Amount Diltiazem 125 mg In 60 Sodium Chloride 0.9% 100 ml @ 10 MG/HR 10 mls/hr IV .[id number] [facility] Rx#: [id number] Oral 540 240 Other: Voiding Method Urinal Urinal # Voids 1 2 # Bowel Movements 1 Weight 71.9 kg GENERAL DESCRIPTION: Elderly male lying in bed, no distress. No tachypnea or accessory muscle of respiration use. HEENT: Shows Pallor , no scleral icterus. Oral mucous membrane is dry. NECK: Trachea central, no thyromegaly. LUNGS: Unlabored breathing. Coarse breath sounds bilaterally HEART: S1, S2, regular rate and rhythm. No loud murmur ABDOMEN: Soft, no tenderness , guarding or rigidity, no organomegaly EXTREMITIES: No edema of feet. SKIN: No rash, no masses palpable. NEUROLOGICAL: The patient is awake, alert, oriented x3, mood and affect normal. Results CBC & Chem 7: 09/14/24 06:54 09/13/24 06:19 Labs: Abnormal Lab Results - Last 24 Hours (Table) 09/14/24 09/14/24 09/15/24 Range/Units 18:29 21:34 05:59 POC Glucose (mg/dL) 255 H 160 H 186 H (70-110) mg/dL 09/15/24 Range/Units 11:25 POC Glucose (mg/dL) 252 H (70-110) mg/dL Microbiology - Last 24 Hours (Table) 09/14/24 11:54 Gram Stain - Preliminary Sputum Sputum Culture - Preliminary Radha albicans 09/12/24 18:15 Blood Culture - Preliminary Blood Assessment and Plan (1) Leukocytosis Current Visit: Yes Status: Acute Code(s): D72.829 - ELEVATED WHITE BLOOD CELL COUNT, UNSPECIFIED SNOMED Code(s): 684133021 (2) Community acquired pneumonia Current Visit: Yes Status: Acute Code(s): J18.9 - PNEUMONIA, UNSPECIFIED ORGANISM SNOMED Code(s): 881055496 (3) RSV bronchiolitis Current Visit: Yes Status: Acute Code(s): J21.0 - ACUTE BRONCHIOLITIS DUE TO RESPIRATORY SYNCYTIAL VIRUS SNOMED Code(s): 78389305 Plan: 1patient presented hospital with increasing shortness of breath cough which is likely multifactorial in this patient has been diagnosed with RSV and concern for possible component secondary to pneumonia 2-worsening leukocytosis more likely steroid related as no evidence of any worsening infection 3-keeping in mind the patient mention improvement in his symptoms to continue with the current treatment including Rocephin to finish 7-day course of therapy We will follow on clinical condition and cultures to further adjust medication if needed Thank you for this consultation we will follow the patient along with you Dictation was produced using [employer] dictation software. please excuse any grammatical, word or spelling errors. Time with Patient: Greater than 30
[2024-09-16 08:36] LABS: Basophils # (A) 0.1 k/uL (0-0.2); Basophils % (A) 0 %; Eosinophils # (A) 0.1 k/uL (0-0.7); Eosinophils % (A) 1 %; HCT 43.7 % (39.0-53.0); HGB 13.8 gm/dL (13.0-17.5); Lymphocytes # (A) 0.4 k/uL (1.0-4.8); Lymphocytes % (A) 2 %; MCH 32.5 pg (25.0-35.0); MCHC 31.5 g/dL (31.0-37.0); MCV 103.2 fL (80.0-100.0); Macrocytosis Slight; Mean Platelet Volume 10.4; Monocytes # (A) 0.5 k/uL (0-1.0); Monocytes % (A) 3 %; Neutrophils # (A) 17.2 k/uL (1.3-7.7); Neutrophils % (A) 94 %; Platelet Count 248 k/uL (150-450); RBC 4.23 m/uL (4.30-5.90); RDW 12.3 % (11.5-15.5); WBC 18.3 k/uL (3.8-10.6)
[2024-09-16] MEDS: amLODIPine 5 MG TAB PO SCH (08:38)
[2024-09-16] MEDS: CYANOCOBALAMIN 500 MCG TAB PO SCH (08:38)
[2024-09-16] MEDS: SACUBITRIL/VALSARTAN 97 MG-103 MG TABLET PO SCH (08:38)
[2024-09-16] MEDS: CHOLECALCIFEROL 25 MCG (1000 IU) TABLET PO SCH (08:39)
[2024-09-16] MEDS: MULTIVITAMINS, THERA 1 EACH TAB PO SCH (08:39)
[2024-09-16] MEDS: SPIRONOLACTONE 25 MG TAB PO SCH (08:39)
[2024-09-16] MEDS: FOLIC ACID 1 MG TAB PO SCH (08:39)
[2024-09-16] MEDS: FLUCONAZOLE 100 MG TAB PO SCH (08:39)
[2024-09-16] MEDS: DAPAGLIFLOZIN PROPANEDIOL 10 MG TABLET PO SCH (08:39)
[2024-09-16] MEDS: BUMETANIDE 1 MG TAB PO SCH (08:39)
[2024-09-16 08:44] LABS: African American GFR (CKD) >90 (>60 ml/min/1.73 sqM); Anion Gap 5 mmol/L; Blood Urea Nitrogen 22 mg/dL (9-20); Calcium 9.4 mg/dL (8.4-10.2); Carbon Dioxide 25 mmol/L (22-30); Chloride 107 mmol/L (98-107); Glucose 169 mg/dL (74-99); Non-African American GFR(CKD) 84 (>60 ml/min/1.73 sqM); Potassium 3.8 mmol/L (3.5-5.1); Sodium 137 mmol/L (137-145)
[2024-09-16] MEDS ORDERED: CLOPIDOGREL 75 MG TAB PO SCH (09:00)
[2024-09-16] MEDS ORDERED: NON FORMULARY DRUG (Valsartan [Valsartan] 320 MG Tablet) PO SCH (09:00)
[2024-09-16] MEDS ORDERED: OMEGA PO SCH (09:00)
[2024-09-16] MEDS ORDERED: NON FORMULARY DRUG (Ubidecarenone [Coenzyme Q10] 200 MG Capsule) PO SCH (09:00)
[2024-09-16] MEDS ORDERED: NON FORMULARY DRUG (Aspirin [Adult Low Dose Aspirin Ec] 81 MG Tablet) PO SCH (09:00)
[2024-09-16] MEDS ORDERED: NON FORMULARY DRUG (Omeprazole [Omeprazole] 20 MG Capsule.Dr) PO SCH (09:00)
[2024-09-16 11:50] LABS: Glucose,Whole Blood 161 mg/dL (70-110)
--- NOTE | 2024-09-16 11:52 | P.PN ---
Subjective Progress Note Date: 09/16/24 Principal diagnosis: Reason for follow-up is RSV and leukocytosis Patient is a 84-year-old male with a past medical history significant for Atrial Fibrillation, Coronary Artery Disease (CAD), Cancer, COPD, GERD/Reflux, Hyperlipidemia, Hypertension, Myocardial Infarction (MO), Osteoarthritis (OA), Thyroid Disorder presenting to the hospital for evaluation of increasing shortness of breath cough and fever, patient be diagnosed with RSV concerning for possible pneumonia prompting this consultation. On today's evaluation that is 09/16/2024,the patient denies any fever or any chills, patient is breathing slightly comfortably on 6 L nasal cannula oxygen, the patient denies chest pain shortness of breath and no worsening cough still not able to bring up any sputum, patient denies abdominal pain, no nausea vomiting or diarrhea. Patient white count is down to 18.3, creatinine 0.77 sputum growing Radha blood culture negative Objective - Vital Signs Vital signs: Vital Signs Temp 97.8 F 09/16/24 08:00 Pulse 98 09/16/24 08:00 Resp 18 09/16/24 08:00 BP 160/74 09/16/24 08:00 Pulse Ox 95 09/16/24 08:00 FiO2 Intake & Output 09/15/24 09/16/24 09/16/24 18:59 06:59 18:59 Intake Total 382.833 Output Total 400 300 Balance -17.167 -300 Weight 72.1 kg Intake: IV 20 Invasive Line 2 20 Intake, IV Titration 122.833 Amount Diltiazem 125 mg In 122.833 Sodium Chloride 0.9% 100 ml @ 10 MG/HR 10 mls/hr IV .[id number] [facility] Rx#: [id number] Oral 240 Output: Urine 400 300 Other: Voiding Method Urinal Urinal # Voids 2 # Bowel Movements 1 - Exam GENERAL DESCRIPTION: An elderly male lying in bed in no distress RESPIRATORY SYSTEM: Unlabored breathing , coarse breath sounds bilaterally HEART: S1 S2 regular rate and rhythm , ABDOMEN: Soft , no tenderness EXTREMITIES: No edema feet - Labs CBC & Chem 7: 09/16/24 08:03 09/16/24 08:03 Labs: Abnormal Lab Results - Last 24 Hours (Table) 09/15/24 09/15/24 09/16/24 Range/Units 16:32 19:10 06:14 WBC (3.8-10.6) k/uL RBC (4.30-5.90) m/uL MCV (80.0-100.0) fL Neutrophils # (1.3-7.7) k/uL Lymphocytes # (1.0-4.8) k/uL BUN (9-20) mg/dL Glucose (74-99) mg/dL POC Glucose (mg/dL) 178 H 190 H 173 H (70-110) mg/dL 09/16/24 09/16/24 09/16/24 Range/Units 08:03 08:03 11:49 WBC 18.3 H (3.8-10.6) k/uL RBC 4.23 L (4.30-5.90) m/uL MCV 103.2 H (80.0-100.0) fL Neutrophils # 17.2 H (1.3-7.7) k/uL Lymphocytes # 0.4 L (1.0-4.8) k/uL BUN 22 H (9-20) mg/dL Glucose 169 H (74-99) mg/dL POC Glucose (mg/dL) 161 H (70-110) mg/dL Microbiology - Last 24 Hours (Table) 09/14/24 11:54 Gram Stain - Final Sputum Sputum Culture - Final Radha albicans 09/12/24 18:15 Blood Culture - Preliminary Blood Assessment and Plan (1) Leukocytosis Current Visit: Yes Status: Acute Code(s): D72.829 - ELEVATED WHITE BLOOD CELL COUNT, UNSPECIFIED SNOMED Code(s): 538369035 (2) Community acquired pneumonia Current Visit: Yes Status: Acute Code(s): J18.9 - PNEUMONIA, UNSPECIFIED ORGANISM SNOMED Code(s): 843515288 (3) RSV bronchiolitis Current Visit: Yes Status: Acute Code(s): J21.0 - ACUTE BRONCHIOLITIS DUE TO RESPIRATORY SYNCYTIAL VIRUS SNOMED Code(s): 20500681 Plan: 1patient presented hospital with increasing shortness of breath cough which is likely multifactorial in this patient has been diagnosed with RSV and concern for possible component secondary to pneumonia 2-worsening leukocytosis more likely steroid related as no evidence of any worsening infection and the patient white count is trending down 3-patient seem to be slowly clinical improvement continue with Rocephin along with steroids and bronchodilator will add incentive spirometry Question concern answered Dictation was produced using [employer] software. please excuse any grammatical, word or spelling errors. Time with Patient: Less than 30
--- NOTE | 2024-09-16 13:56 | P.PN ---
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 Mancia. He also has prior history of COPD dyslipidemia hypertension osteoarthritis kyphoscoliosis. In 03/2023 he was admitted to the hospital for kyphoplasty. Postoperatively he had EKG changes and he had mild elevation of tr oponin and was treated for postoperative [place] with medical management and IV heparin drip. His echo at that time showed preserved LV systolic function with inferior wall hypokinesis which appeared to be old. This time he presented to the hospital because of 2 to 3 days of increased worsening shortness of breath, cough and congestion. On admission she was noticed to have RSV infection. Saturating 90% on 3 L nasal cannula, on admission there was also concerns of possible atrial fibrillation for which she was started on Cardizem drip and IV heparin drip. Cardiology was consulted for atrial fibrillation management. Admission Labs: Hb 15.8, BUN 17, creatinine 0.9, A1c 5.6, NT-proBNP 4700, trop onins were negative, LDL 97, TSH is low at 0.3, free T4 is 1.5, RSV positive Admission EKG: Atrial fibrillation with heart rate 106 bpm, moderate intraventricular conduction delay. Nonspecific ST changes. Imaging: Chest x-ray does not show any signs of consolidation or congestion. Mild scarring noticed in right mid lung base. 09/16/2024 Patient examined this morning at bedside. Patient currently denies chest pain or pressure. He reports mild shortness of breath. He is currently on 6 L nasal cannula. Blood pressures remain elevated. Telemetry reveals sinus mechanism with a heart rate in the 90s. PHYSICAL EXAM: VITAL SIGNS: Reviewed. GENERAL: Well-developed in no acute distress. NECK: Supple. No JVD or thyromegaly LUNGS: Respirations even and unlabored. Lungs essentially clear to auscultation bilaterally. HEART: Regular rate and rhythm. S1 and S2 heard. EXTREMITIES: Normal range of motion. No clubbing or cyanosis. Peripheral pulses intact. No lower extremity edema ASSESSMENT: # Atrial fibrillation with RVR on admission, currently sinus rhythm. Paroxysmal atrial fibrillation is new on this admission/2024. 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 Mancia Nurse practitioner note has been reviewed by physician. Signing provider agrees with the documented findings, assessment, and plan of care documented by ENVIRONMENTAL QUALITY ANALYST as a scribe. Objective - Vital Signs Vital signs: Vital Signs Temp 97.5 F L 09/16/24 12:00 Pulse 95 09/16/24 13:40 Resp 18 09/16/24 13:52 BP 156/71 09/16/24 12:00 Pulse Ox 97 09/16/24 13:30 FiO2 Intake & Output 09/15/24 09/16/24 09/16/24 18:59 06:59 18:59 Intake Total 382.833 Output Total 400 300 Balance -17.167 -300 Weight 72.1 kg Intake: IV 20 Invasive Line 2 20 Intake, IV Titration 122.833 Amount Diltiazem 125 mg In 122.833 Sodium Chloride 0.9% 100 ml @ 10 MG/HR 10 mls/hr IV .[id number] [facility] Rx#: [id number] Oral 240 Output: Urine 400 300 Other: Voiding Method Urinal Urinal # Voids 2 # Bowel Movements 1 - Labs CBC & Chem 7: 09/16/24 08:03 09/16/24 08:03 Labs: Abnormal Lab Results - Last 24 Hours (Table) 09/15/24 09/15/24 09/16/24 Range/Units 16:32 19:10 06:14 WBC (3.8-10.6) k/uL RBC (4.30-5.90) m/uL MCV (80.0-100.0) fL Neutrophils # (1.3-7.7) k/uL Lymphocytes # (1.0-4.8) k/uL BUN (9-20) mg/dL Glucose (74-99) mg/dL POC Glucose (mg/dL) 178 H 190 H 173 H (70-110) mg/dL 09/16/24 09/16/24 09/16/24 Range/Units 08:03 08:03 11:49 WBC 18.3 H (3.8-10.6) k/uL RBC 4.23 L (4.30-5.90) m/uL MCV 103.2 H (80.0-100.0) fL Neutrophils # 17.2 H (1.3-7.7) k/uL Lymphocytes # 0.4 L (1.0-4.8) k/uL BUN 22 H (9-20) mg/dL Glucose 169 H (74-99) mg/dL POC Glucose (mg/dL) 161 H (70-110) mg/dL Microbiology - Last 24 Hours (Table) 09/14/24 11:54 Gram Stain - Final Sputum Sputum Culture - Final Radha albicans 09/12/24 18:15 Blood Culture - Preliminary Blood
--- NOTE | 2024-09-16 15:19 | XR ---
EXAMINATION TYPE: XR chest 1V portable DATE OF EXAM: 09/16/2024 3:09 PM COMPARISON: 09/13/2024 CLINICAL INDICATION: Male, 84 years old with history of rt pneumonia, , FINDINGS: Heart normal size. Interstitial densities persist. There is a small right pleural effusion and some p atchy right mid and lower lung opacity present. Atherosclerotic calcifications throughout the thoraci c aorta. New strandy atelectasis left midlung. IMPRESSION: New small right pleural effusion with some patchy opacity/infiltrate right mid and lower lung [facility] [place], , 09/16/2024 3:16 PM
--- NOTE | 2024-09-16 15:47 | P.PN ---
Subjective Progress Note Date: 09/16/24 This is a pleasant 84-year-old male patient with a known history of oxygen depe ndent chronic obstructive pulmonary disease maintained on Trelegy and albuterol in the outpatient setting, former smoker. He follows with Dr. Bowers in the office. He also has a history of hypertension, hyperlipidemia, gastroesophageal reflux disease, hypothyroidism. He presented here to the emergency room yesterday with a 3 to 4-day history of increasing shortness of breath, cough and congestion. Was pulse ox readings were low at home in the 80s. Chest x-ray reveals evidence of COPD. There is a vague infiltrate within the periphery of the left midlung. White count 8.6. Hemoglobin 13.9. Platelets 146. Sodium 134. Potassium 3.8. Bicarb 25. BUN 17. Creatinine 0.74. Glucose 214. Troponins 0.037,. 0.032, 0.033. proBNP 4780. EKG reveals paroxysmal atrial fibrillation. His viral screen is positive for RSV. He is seen today in consultation in the emergency department. He is currently sitting up on the stretcher. Awake and alert in no acute distress. He is maintaining O2 saturations in the 90s on 3 L/min per nasal cannula. He is afebrile. He is tachycardic. On 09/14/2024, the patient is being seen for a follow-up. The patient was seen in consultation yesterday and today she is being seen for a follow-up. The patient came in with an acute on top of chronic hypoxic khanh failure secondary to acute RSV infection. The patient was not also atrial fibrillation with rapid ventricular response. The patient has noted diastolic heart failure. Her A-fib was other new onset and she had also an minimal troponin leak. For now, the patient remains on Cardizem drip at 10 mg an hour. She remains on IV heparin. She is on DuoNeb updrafts, Symbicort and IV Solu-Medrol 60 mg every 6 hours. She was also covered empirically with IV antibiotics. She is on a combination of Rocephin and Zithromax. For now, the patient has no specific complaints. Feeling better compared to yesterday. D-dimer is at 0.42. Procalcitonin level is at 0.12. The white cell count of 23 when he was 15.9 and the platelet count of 196. Rest of the electrolytes were all within normal limits. She is currently on 3 liters of oxygen by nasal cannula with a pulse ox of 92%. On 09/15/2024, the patient is being seen for a follow-up. The patient continues to have difficulties in breathing, cough, congestion, bronchospasm and wheezing. The patient has an acute on top of chronic hypoxic respiratory failure/acute exacerbation of diastolic heart failure and acute RSV infection. The patient also had A-fib RVR at the time of admission. A repeat echocardiogram was done this morning and the patient has impaired LV function with an EF of around 30% and that ventricular systolic pressure of 58. The patient is currently on DuoNeb nebulized treatments [id number]. Remains on Symbicort as maintenance 2 puffs twice a day. Remains on IV Solu-Medrol 60 mg every 6 hours and the patient is on empiric antibiotic coverage with IV Rocephin. Meanwhile, the patient was started on Diflucan regarding some Radha in his sputum, likely oropharyngeal candidiasis/colonization. The patient remains in atrial fibrillation. He is currently on Toprol-XL 100 mg p.o. daily. Remains on Cardi zem drip at 10 mg an hour. Remains on anticoagulation with Eliquis. Echocardiogram was noted. 09/16/2024, the patient is feeling slightly improved compared to yesterday. Cough and congestion still present although subsided compared to yesterday. Denies having any chest pain. He remains on oxygen at 6 L/min nasal cannula. His pulse ox is currently in the order of 97%. The patient has also converted to normal sinus mechanism. He has history of paroxysmal atrial fibrillation. He is currently off Cardizem drip and the patient is currently on metoprolol XL 100 mg p.o. daily, and he was started on anticoagulation with Eliquis 5 mg p.o. twice a day. He is also on a combination of Entresto 97/103 1 tablet twice a day, Aldactone 25 mg p.o. daily, Farxiga 10 mg p.o. daily and hydralazine 25 mg p.o. 4 times daily and Imdur 10 mg p.o. daily. This was started as the patient was found to have significant cardiomyopathy. Echocardiogram showed a new onset cardiomyopathy with an ejection fraction of 30 to 35% and this is being followed up. In regards to his CF exacerbation RSV infection, he remains on DuoNeb updrafts, Symbicort, and is also on IV Solu-Medrol 60 mg every 6 hours. No o ther significant events overnight. His labs show a white cell count of 18, hemoglobin of 13.8 and a platelet count of 248. Sodium level is at 137, BUN is 22 with a creatinine of 0.7. Potassium level is at 3.8. Objective - Vital Signs Vital signs: Vital Signs Temp 97.8 F 09/16/24 08:00 Pulse 98 09/16/24 08:00 Resp 18 09/16/24 08:00 BP 160/74 09/16/24 08:00 Pulse Ox 95 09/16/24 08:00 FiO2 Intake & Output 09/15/24 09/16/24 09/16/24 18:59 06:59 18:59 Intake Total 382.833 Output Total 400 300 Balance -17.167 -300 Weight 72.1 kg Intake: IV 20 Invasive Line 2 20 Intake, IV Titration 122.833 Amount Diltiazem 125 mg In 122.833 Sodium Chloride 0.9% 100 ml @ 10 MG/HR 10 mls/hr IV .[id number] [facility] Rx#: [id number] Oral 240 Output: Urine 400 300 Other: Voiding Method Urinal Urinal # Voids 2 # Bowel Movements 1 - Exam GENERAL EXAM: Alert, pleasant, dyspneic 84-year-old male, on 6 L nasal cannula, fairly comfortable in no apparent distress. HEAD: Normocephalic. EYES: Normal reaction of pupils, equal size. NOSE: Clear with pink turbinates. THROAT: No erythema or exudates. NECK: No masses, no JVD. CHEST: No chest wall deformity. LUNGS: Equal air entry with bilateral scattered rhonchi, wheeze, diminished. CVS: S1 and S2 normal with no audible murmur, irregular rhythm. Remains atrial fibrillation ABDOMEN: No hepatosplenomegaly, normal bowel sounds, no guarding or rigidity. SPINE: No scoliosis or deformity SKIN: No rashes CENTRAL NERVOUS SYSTEM: No focal deficits, tone is normal in all 4 extremities. EXTREMITIES: There is no peripheral edema. No clubbing, no cyanosis. Peripheral pulses are intact. - Labs CBC & Chem 7: 09/16/24 08:03 09/16/24 08:03 Labs: Abnormal Lab Results - Last 24 Hours (Table) 09/15/24 09/15/24 09/16/24 Range/Units 16:32 19:10 06:14 WBC (3.8-10.6) k/uL RBC (4.30-5.90) m/uL MCV (80.0-100.0) fL Neutrophils # (1.3-7.7) k/uL Lymphocytes # (1.0-4.8) k/uL BUN (9-20) mg/dL Glucose (74-99) mg/dL POC Glucose (mg/dL) 178 H 190 H 173 H (70-110) mg/dL 09/16/24 09/16/24 09/16/24 Range/Units 08:03 08:03 11:49 WBC 18.3 H (3.8-10.6) k/uL RBC 4.23 L (4.30-5.90) m/uL MCV 103.2 H (80.0-100.0) fL Neutrophils # 17.2 H (1.3-7.7) k/uL Lymphocytes # 0.4 L (1.0-4.8) k/uL BUN 22 H (9-20) mg/dL Glucose 169 H (74-99) mg/dL POC Glucose (mg/dL) 161 H (70-110) mg/dL Microbiology - Last 24 Hours (Table) 09/14/24 11:54 Gram Stain - Final Sputum Sputum Culture - Final Radha albicans 09/12/24 18:15 Blood Culture - Preliminary Blood Assessment and Plan Plan: Acute on chronic hypoxemic respiratory failure secondary to an acute e xacerbation of chronic obstructive pulmonary disease complicated by RSV, systolic congestive heart failure, atrial fibrillation with RVR, currently on 3 liters of oxygen by nasal cannula, clinically slightly. Previous echocardiogram from 2022 showed a preserved LV function with a normal ejection fraction of 55 to 60% and the patient also had grade 1 diastolic dysfunction, moderate degree of pulmonary hypertension with estimated right ventricular systolic pressure of around 50. Repeat echocardiogram shows impairment LV function with an EF of around 30 to 35%. The patient is currently on 6 days of oxygen by nasal cannula. Acute RSV infection, remains on bronchodilators and steroids and patient remains on IV Solu-Medrol. Acute exacerbation of systolic heart failure. Echocardiogram shows systolic heart failure with an ejection fraction of 30 to 35% with secondary pulm hypertension. CHF is being optimized and the patient is currently on a combination of Toprol, Farxiga, Entresto, and Aldactone. New onset atrial fibrillation with a rapid ventricular response , converted to normal sinus rhythm. Remains on anticoagulation with Eliquis. Mild troponin leak secondary to above Chronic obstructive pulmonary disease , home oxygen mainly at night Hypertension Hyperlipidemia Hypothyroidism Gastroesophageal reflux disease Acute leukocytosis, will monitor Plan: The patient is stable on 6 L of oxygen by nasal cannula, gradual wean down FiO2 as tolerated to maintain saturation above 90%. Continue Symbicort Continue DuoNeb the writings on the clock Continue IV Solu-Medrol Antibiotic coverage is empiric at this point in time, procalcitonin level is not elevated at 0.12. The patient remains on IV Rocephin Monitor the white cell count Anticoagulation with Eliquis Toprol-XL 100 mg p.o. daily Entresto 97/103 1 tablet twice a day, Aldactone 25 mg p.o. daily, Farxiga 10 mg p.o. daily, hydralazine and nitrates and Bumex 1 mg p.o. daily. We will continue to follow and make further recommendations based on his clinical status Time with Patient: Greater than 30
[2024-09-16 16:36] LABS: Glucose,Whole Blood 196 mg/dL (70-110)
[2024-09-16 20:10] LABS: Glucose,Whole Blood 205 mg/dL (70-110)
--- NOTE | 2024-09-16 23:13 | PN ---
PROGRESS NOTE DATE OF SERVICE: 09/16/2024 SUBJECTIVE: This is an 84-year-old gentleman who was admitted with COPD acute exacerbation as well as possible right lower lobe pneumonia, is being closely monitored at this time. No chest pain. No palpitation. PAST MEDICAL HISTORY: Reviewed. REVIEW OF SYSTEMS: A 14-point review of systems is negative except as mentioned earlier. CURRENT MEDICATIONS: Reviewed. PHYSICAL EXAMINATION: VITAL SIGNS: Pulse is 95, blood pressure 120/70, respirations 18. HEENT: Conjunctivae normal. NECK: No JVD. CARDIOVASCULAR: S1, S2. RESPIRATIONS: Breath sounds diminished at the bases. Scattered rhonchi and crackles. ABDOMEN: Soft. NERVOUS SYSTEM: Nonfocal. LABORATORY DATA: Reviewed. Chest x-ray done today reviewed personally by me showed bilateral lesions. ASSESSMENT: 1. Chronic obstructive pulmonary disease acute exacerbation with acute respiratory syncytial virus infection with right lower lobe pneumonia, possibly viral pneumonia and gram-negative pneumonia. 2. Gastroesophageal reflux disease. 3. Hypertension. 4. Hyperlipidemia. 5. Degenerative joint disease. 6. History of colitis. RECOMMENDATIONS: Recommend to continue current medications. Continue with antibiotics. Continue with monitoring bronchodilators. Closely follow with Pulmonary and Infectious Disease. Guarded prognosis. Further recommendations to follow. MMODL / IJN: [id number] /
[2024-09-17 06:14] LABS: Glucose,Whole Blood 215 mg/dL (70-110)
[2024-09-17 07:15] LABS: Basophils % (A) 0 %; Eosinophils # (A) 0.1 k/uL (0-0.7); Eosinophils % (A) 1 %; HCT 46.1 % (39.0-53.0); HGB 14.4 gm/dL (13.0-17.5); Lymphocytes # (A) 0.4 k/uL (1.0-4.8); Lymphocytes % (A) 2 %; MCH 32.3 pg (25.0-35.0); MCHC 31.3 g/dL (31.0-37.0); MCV 103.2 fL (80.0-100.0); Macrocytosis Slight; Monocytes # (A) 0.4 k/uL (0-1.0); Monocytes % (A) 2 %; Neutrophils % (A) 95 %; Platelet Count 299 k/uL (150-450); RBC 4.47 m/uL (4.30-5.90); RDW 12.4 % (11.5-15.5)
[2024-09-17 07:29] LABS: African American GFR (CKD) 80 (>60 ml/min/1.73 sqM); Anion Gap 7 mmol/L; Blood Urea Nitrogen 29 mg/dL (9-20); Calcium 9.5 mg/dL (8.4-10.2); Carbon Dioxide 25 mmol/L (22-30); Chloride 105 mmol/L (98-107); Glucose 194 mg/dL (74-99); Non-African American GFR(CKD) 69 (>60 ml/min/1.73 sqM); Potassium 3.4 mmol/L (3.5-5.1); Sodium 137 mmol/L (137-145)
[2024-09-17 11:46] LABS: Glucose,Whole Blood 226 mg/dL (70-110)
--- NOTE | 2024-09-17 13:02 | P.PN ---
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 Mancia. He also has prior history of COPD dyslipidemia hypertension osteoarthritis kyphoscoliosis. In 03/2023 he was admitted to the hospital for kyphoplasty. Postoperatively he had EKG changes and he had mild elevation of tr oponin and was treated for postoperative [place] with medical management and IV heparin drip. His echo at that time showed preserved LV systolic function with inferior wall hypokinesis which appeared to be old. This time he presented to the hospital because of 2 to 3 days of increased worsening shortness of breath, cough and congestion. On admission she was noticed to have RSV infection. Saturating 90% on 3 L nasal cannula, on admission there was also concerns of possible atrial fibrillation for which she was started on Cardizem drip and IV heparin drip. Cardiology was consulted for atrial fibrillation management. Admission Labs: Hb 15.8, BUN 17, creatinine 0.9, A1c 5.6, NT-proBNP 4700, trop onins were negative, LDL 97, TSH is low at 0.3, free T4 is 1.5, RSV positive Admission EKG: Atrial fibrillation with heart rate 106 bpm, moderate intraventricular conduction delay. Nonspecific ST changes. Imaging: Chest x-ray does not show any signs of consolidation or congestion. Mild scarring noticed in right mid lung base. 09/16/2024 Patient examined this morning at bedside. Patient currently denies chest pain or pressure. He reports mild shortness of breath. He is currently on 6 L nasal cannula. Blood pressures remain elevated. Telemetry reveals sinus mechanism with a heart rate in the 90s. 09/17/2024 Patient examined this morning at the bedside. Patient currently denies chest pa in or pressure. He denies shortness of breath. Blood pressure 146/63. He remains on 5 L nasal cannula. PHYSICAL EXAM: VITAL SIGNS: Reviewed. GENERAL: Well-developed in no acute distress. NECK: Supple. No JVD or thyromegaly LUNGS: Respirations even and unlabored. Lungs essentially clear to auscultation bilaterally. HEART: Regular rate and rhythm. S1 and S2 heard. EXTREMITIES: Normal range of motion. No clubbing or cyanosis. Peripheral pulses intact. No lower extremity edema ASSESSMENT: # Atrial fibrillation with RVR on admission, currently sinus rhythm. Paroxysmal atrial fibrillation is new on this admission/2024. # New worsening cardiomyopathy, likely stress-induced, EF 30 to 35%, likely due to below # RSV infection # Mild to moderate COPD # Prior history of CAD with known DRILL PRESS TENDER of RCA # Essential hypertension # Dyslipidemia PLAN: Continue current cardiac medications including amlodipine, Entresto, Eliquis, aspirin, Lipitor, Bumex, Farxiga, hydralazine, Imdur, metoprolol, and Aldactone Continue to monitor blood pressure Recommend outpatient ischemic evaluation once patient has recovered from his acute RSV Patient to follow-up postdischarge with Dr. Mancia We will sign off. Please reconsult if needed. Nurse practitioner note has been reviewed by physician. Signing provider agrees with the documented findings, assessment, and plan of care documented by GUIDE TOUR as a scribe. Objective - Vital Signs Vital signs: Vital Signs Temp 96.6 F L 09/17/24 11:43 Pulse 52 L 09/17/24 11:43 Resp 20 09/17/24 11:43 BP 146/63 09/17/24 11:43 Pulse Ox 93 L 09/17/24 11:43 FiO2 Intake & Output 09/16/24 09/17/24 09/17/24 18:59 06:59 18:59 Weight 69.3 kg Other: Voiding Method Urinal # Voids 2 - Labs CBC & Chem 7: 09/17/24 06:45 09/17/24 06:56 Labs: Abnormal Lab Results - Last 24 Hours (Table) 09/16/24 09/16/24 09/17/24 Range/Units 16:35 20:03 06:10 WBC (3.8-10.6) k/uL MCV (80.0-100.0) fL Neutrophils # (1.3-7.7) k/uL Lymphocytes # (1.0-4.8) k/uL Potassium (3.5-5.1) mmol/L BUN (9-20) mg/dL Glucose (74-99) mg/dL POC Glucose (mg/dL) 196 H 205 H 215 H (70-110) mg/dL 09/17/24 09/17/24 09/17/24 Range/Units 06:45 06:56 11:45 WBC 20.0 H (3.8-10.6) k/uL MCV 103.2 H (80.0-100.0) fL Neutrophils # 19.0 H (1.3-7.7) k/uL Lymphocytes # 0.4 L (1.0-4.8) k/uL Potassium 3.4 L (3.5-5.1) mmol/L BUN 29 H (9-20) mg/dL Glucose 194 H (74-99) mg/dL POC Glucose (mg/dL) 226 H (70-110) mg/dL Microbiology - Last 24 Hours (Table) 09/14/24 11:54 Gram Stain - Final Sputum Sputum Culture - Final Radha albicans
--- NOTE | 2024-09-17 14:40 | P.PN ---
Subjective Progress Note Date: 09/17/24 Principal diagnosis: Reason for follow-up is RSV and leukocytosis Patient is a 84-year-old male with a past medical history significant for Atrial Fibrillation, Coronary Artery Disease (CAD), Cancer, COPD, GERD/Reflux, Hyperlipidemia, Hypertension, Myocardial Infarction ([place]), Osteoarthritis (OA), Thyroid Disorder presenting to the hospital for evaluation of increasing shortness of breath cough and fever, patient be diagnosed with RSV concerning for possible pneumonia prompting this consultation. On today's evaluation that is 09/17/2024,the patient remains to be afebrile, patient is on 4 L nasal cannula supplemental oxygen and denies any shortness of breath no chest pain or cough.Patient denies having any nausea or vomiting, no abdominal pain and no diarrhea has been complaining of mostly nosebleed. Patient white count is 20,000, creatinine is 1.0 sputum with Radha blood culture negative Objective - Vital Signs Vital signs: Vital Signs Temp 96.6 F L 09/17/24 11:43 Pulse 52 L 09/17/24 11:43 Resp 20 09/17/24 11:43 BP 146/63 09/17/24 11:43 Pulse Ox 93 L 09/17/24 11:43 FiO2 Intake & Output 09/16/24 09/17/24 09/17/24 18:59 06:59 18:59 Output Total 300 Balance -300 Weight 69.3 kg Output: Urine 300 Other: Voiding Method Urinal # Voids 2 - Exam GENERAL DESCRIPTION: An elderly male lying in bed in no distress RESPIRATORY SYSTEM: Unlabored breathing , coarse breath sounds bilaterally HEART: S1 S2 regular rate and rhythm , ABDOMEN: Soft , no tenderness EXTREMITIES: No edema feet - Labs CBC & Chem 7: 09/17/24 06:45 09/17/24 06:56 Labs: Abnormal Lab Results - Last 24 Hours (Table) 09/16/24 09/16/24 09/17/24 Range/Units 16:35 20:03 06:10 WBC (3.8-10.6) k/uL MCV (80.0-100.0) fL Neutrophils # (1.3-7.7) k/uL Lymphocytes # (1.0-4.8) k/uL Potassium (3.5-5.1) mmol/L BUN (9-20) mg/dL Glucose (74-99) mg/dL POC Glucose (mg/dL) 196 H 205 H 215 H (70-110) mg/dL 09/17/24 09/17/24 09/17/24 Range/Units 06:45 06:56 11:45 WBC 20.0 H (3.8-10.6) k/uL MCV 103.2 H (80.0-100.0) fL Neutrophils # 19.0 H (1.3-7.7) k/uL Lymphocytes # 0.4 L (1.0-4.8) k/uL Potassium 3.4 L (3.5-5.1) mmol/L BUN 29 H (9-20) mg/dL Glucose 194 H (74-99) mg/dL POC Glucose (mg/dL) 226 H (70-110) mg/dL Microbiology - Last 24 Hours (Table) 09/14/24 11:54 Gram Stain - Final Sputum Sputum Culture - Final Radha albicans Assessment and Plan (1) Leukocytosis Current Visit: Yes Status: Acute Code(s): D72.829 - ELEVATED WHITE BLOOD CELL COUNT, UNSPECIFIED SNOMED Code(s): 929045344 (2) Community acquired pneumonia Current Visit: Yes Status: Acute Code(s): J18.9 - PNEUMONIA, UNSPECIFIED ORGANISM SNOMED Code(s): 256697416 (3) RSV bronchiolitis Current Visit: Yes Status: Acute Code(s): J21.0 - ACUTE BRONCHIOLITIS DUE TO RESPIRATORY SYNCYTIAL VIRUS SNOMED Code(s): 04000542 Plan: 1patient presented hospital with increasing shortness of breath cough which is likely multifactorial in this patient has been diagnosed with RSV and concern for possible component secondary to pneumonia 2-worsening leukocytosis more likely steroid related as no evidence of any worsening infection and the patient white count is slightly up more likely steroid related no evidence of any worsening clinical condition 3-patient currently being treated with Rocephin along with steroids and bronchodilator and monitor Clinical course closely Dictation was produced using [employer] software. please excuse any grammatical, word or spelling errors. Time with Patient: Less than 30
[2024-09-17] MEDS: POTASSIUM CHLORIDE ER 20 MEQ TAB.ER PO STA (16:04)
[2024-09-17 17:04] LABS: Glucose,Whole Blood 219 mg/dL (70-110)
[2024-09-17] MEDS: DILTIAZEM 125 MG in SODIUM CHLORIDE 0.9% 100 ML IV SCH (17:04)
[2024-09-17 20:12] LABS: Glucose,Whole Blood 237 mg/dL (70-110)
--- NOTE | 2024-09-17 22:59 | P.PN ---
Subjective Progress Note Date: 09/17/24 This is a pleasant 84-year-old male patient with a known history of oxygen depe ndent chronic obstructive pulmonary disease maintained on Trelegy and albuterol in the outpatient setting, former smoker. He follows with Dr. Bowers in the office. He also has a history of hypertension, hyperlipidemia, gastroesophageal reflux disease, hypothyroidism. He presented here to the emergency room yesterday with a 3 to 4-day history of increasing shortness of breath, cough and congestion. Was pulse ox readings were low at home in the 80s. Chest x-ray reveals evidence of COPD. There is a vague infiltrate within the periphery of the left midlung. White count 8.6. Hemoglobin 13.9. Platelets 146. Sodium 134. Potassium 3.8. Bicarb 25. BUN 17. Creatinine 0.74. Glucose 214. Troponins 0.037,. 0.032, 0.033. proBNP 4780. EKG reveals paroxysmal atrial fibrillation. His viral screen is positive for RSV. He is seen today in consultation in the emergency department. He is currently sitting up on the stretcher. Awake and alert in no acute distress. He is maintaining O2 saturations in the 90s on 3 L/min per nasal cannula. He is afebrile. He is tachycardic. On 09/14/2024, the patient is being seen for a follow-up. The patient was seen in consultation yesterday and today she is being seen for a follow-up. The patient came in with an acute on top of chronic hypoxic khanh failure secondary to acute RSV infection. The patient was not also atrial fibrillation with rapid ventricular response. The patient has noted diastolic heart failure. Her A-fib was other new onset and she had also an minimal troponin leak. For now, the patient remains on Cardizem drip at 10 mg an hour. She remains on IV heparin. She is on DuoNeb updrafts, Symbicort and IV Solu-Medrol 60 mg every 6 hours. She was also covered empirically with IV antibiotics. She is on a combination of Rocephin and Zithromax. For now, the patient has no specific complaints. Feeling better compared to yesterday. D-dimer is at 0.42. Procalcitonin level is at 0.12. The white cell count of 23 when he was 15.9 and the platelet count of 196. Rest of the electrolytes were all within normal limits. She is currently on 3 liters of oxygen by nasal cannula with a pulse ox of 92%. On 09/15/2024, the patient is being seen for a follow-up. The patient continues to have difficulties in breathing, cough, congestion, bronchospasm and wheezing. The patient has an acute on top of chronic hypoxic respiratory failure/acute exacerbation of diastolic heart failure and acute RSV infection. The patient also had A-fib RVR at the time of admission. A repeat echocardiogram was done this morning and the patient has impaired LV function with an EF of around 30% and that ventricular systolic pressure of 58. The patient is currently on DuoNeb nebulized treatments [id number]. Remains on Symbicort as maintenance 2 puffs twice a day. Remains on IV Solu-Medrol 60 mg every 6 hours and the patient is on empiric antibiotic coverage with IV Rocephin. Meanwhile, the patient was started on Diflucan regarding some Radha in his sputum, likely oropharyngeal candidiasis/colonization. The patient remains in atrial fibrillation. He is currently on Toprol-XL 100 mg p.o. daily. Remains on Cardi zem drip at 10 mg an hour. Remains on anticoagulation with Eliquis. Echocardiogram was noted. 09/16/2024, the patient is feeling slightly improved compared to yesterday. Cough and congestion still present although subsided compared to yesterday. Denies having any chest pain. He remains on oxygen at 6 L/min nasal cannula. His pulse ox is currently in the order of 97%. The patient has also converted to normal sinus mechanism. He has history of paroxysmal atrial fibrillation. He is currently off Cardizem drip and the patient is currently on metoprolol XL 100 mg p.o. daily, and he was started on anticoagulation with Eliquis 5 mg p.o. twice a day. He is also on a combination of Entresto 97/103 1 tablet twice a day, Aldactone 25 mg p.o. daily, Farxiga 10 mg p.o. daily and hydralazine 25 mg p.o. 4 times daily and Imdur 10 mg p.o. daily. This was started as the patient was found to have significant cardiomyopathy. Echocardiogram showed a new onset cardiomyopathy with an ejection fraction of 30 to 35% and this is being followed up. In regards to his CF exacerbation RSV infection, he remains on DuoNeb updrafts, Symbicort, and is also on IV Solu-Medrol 60 mg every 6 hours. No o ther significant events overnight. His labs show a white cell count of 18, hemoglobin of 13.8 and a platelet count of 248. Sodium level is at 137, BUN is 22 with a creatinine of 0.7. Potassium level is at 3.8. 09/17/2024, the patient is being seen for a follow-up. Patient is being treated for acute exacerbation secondary to acute RSV infection. The patient also had developed atrial fibrillation and current rhythm is back into sinus. He is known to have COPD. He remains on oxygen and patient's FiO2 has been weaned down to 40 Suboxone by nasal cannula and the pulse ox is around 96%. Remains on bronchodilators. Remains on IV Solu-Medrol. Remains on Symbicort as maintenance. He is also on metoprolol 100 mg p.o. daily and anticoagulation with Eliquis. He is on Farxiga 10 mg p.o. daily and Entresto and Aldactone. Blood work shows a white cell count of 20 with a hemoglobin 14.4 and a platelet count of 299. BUN is 29 with a creatinine of 1.0 and his sodium is at 137 and a potassium level is at 3.4. No new complaints. Clinically improving. Objective - Vital Signs Vital signs: Vital Signs Temp 97.1 F L 09/17/24 08:00 Pulse 60 09/17/24 08:00 Resp 20 09/17/24 08:00 BP 163/70 09/17/24 08:00 Pulse Ox 92 L 09/17/24 08:00 FiO2 Intake & Output 09/16/24 09/17/24 09/17/24 18:59 06:59 18:59 Weight 69.3 kg Other: Voiding Method Urinal # Voids 2 - Exam GENERAL EXAM: Alert, pleasant, dyspneic 84-year-old male, on 4 L nasal cannula, fairly comfortable in no apparent distress. HEAD: Normocephalic. EYES: Normal reaction of pupils, equal size. NOSE: Clear with pink turbinates. THROAT: No erythema or exudates. NECK: No masses, no JVD. CHEST: No chest wall deformity. LUNGS: Equal air entry with bilateral scattered rhonchi, wheeze, diminished. CVS: S1 and S2 normal with no audible murmur, cardiac rhythm is sinus ABDOMEN: No hepatosplenomegaly, normal bowel sounds, no guarding or rigidity. SPINE: No scoliosis or deformity SKIN: No rashes CENTRAL NERVOUS SYSTEM: No focal deficits, tone is normal in all 4 extremities. EXTREMITIES: There is no peripheral edema. No clubbing, no cyanosis. Peripheral pulses are intact. - Labs CBC & Chem 7: 09/17/24 06:45 09/17/24 06:56 Labs: Abnormal Lab Results - Last 24 Hours (Table) 09/16/24 09/16/24 09/16/24 Range/Units 11:49 16:35 20:03 WBC (3.8-10.6) k/uL MCV (80.0-100.0) fL Neutrophils # (1.3-7.7) k/uL Lymphocytes # (1.0-4.8) k/uL Potassium (3.5-5.1) mmol/L BUN (9-20) mg/dL Glucose (74-99) mg/dL POC Glucose (mg/dL) 161 H 196 H 205 H (70-110) mg/dL 09/17/24 09/17/24 09/17/24 Range/Units 06:10 06:45 06:56 WBC 20.0 H (3.8-10.6) k/uL MCV 103.2 H (80.0-100.0) fL Neutrophils # 19.0 H (1.3-7.7) k/uL Lymphocytes # 0.4 L (1.0-4.8) k/uL Potassium 3.4 L (3.5-5.1) mmol/L BUN 29 H (9-20) mg/dL Glucose 194 H (74-99) mg/dL POC Glucose (mg/dL) 215 H (70-110) mg/dL Microbiology - Last 24 Hours (Table) 09/14/24 11:54 Gram Stain - Final Sputum Sputum Culture - Final Radha albicans Assessment and Plan Plan: Acute on chronic hypoxemic respiratory failure secondary to an acute exacerbation of chronic obstructive pulmonary disease complicated by RSV, systolic congestive heart failure, atrial fibrillation with RVR, currently on 3 liters of oxygen by nasal cannula, clinically slightly. Previous echocardiogram from 2022 showed a preserved LV function with a normal ejection fraction of 55 to 60% and the patient also had grade 1 diastolic dysfunction, moderate degree of pulmonary hypertension with estimated right ventricular systolic pressure of around 50. Repeat echocardiogram shows impairment LV function with an EF of around 30 to 35%. The patient is currently on 4 L of O2 nasal cannula Acute RSV infection, remains on bronchodilators and steroids and patient remains on IV Solu-Medrol. Acute exacerbation of systolic heart failure. Echocardiogram shows systolic heart failure with an ejection fraction of 30 to 35% with secondary pulm hypertension. CHF is being optimized and the patient is currently on a combination of Toprol, Farxiga, Entresto, and Aldactone. New onset atrial fibrillation with a rapid ventricular response , converted to normal sinus rhythm. Remains on anticoagulation with Eliquis. Mild troponin leak secondary to above Chronic obstructive pulmonary disease , home oxygen mainly at night Hypertension Hyperlipidemia Hypothyroidism Gastroesophageal reflux disease Acute leukocytosis, will monitor Plan: The patient is stable clinically improving. Oxygenation is also improved and the patient is currently down to 4 L of O2 nasal cannula Continue Symbicort Continue DuoNeb the writings on the clock Continue IV Solu-Medrol, will switch to prednisone burst taper at time of discharge Antibiotic coverage is empiric at this point in time, procalcitonin level is not elevated at 0.12. The patient remains on IV Rocephin Monitor the white cell count Anticoagulation with Eliquis Norvasc 5 mg p.o. daily for blood pressure control Toprol-XL 100 mg p.o. daily Entresto 97/103 1 tablet twice a day, Aldactone 25 mg p.o. daily, Farxiga 10 mg p.o. daily, hydralazine and nitrates and Bumex 1 mg p.o. daily. We will continue to follow and make further recommendations based on his clinical status Time with Patient: Greater than 30
[2024-09-18 06:08] LABS: Glucose,Whole Blood 206 mg/dL (70-110)
--- NOTE | 2024-09-18 08:55 | P.PN ---
Subjective Progress Note Date: 09/17/24 This is a pleasant 84-year-old male who was recently admitted with increasing shortness of breath with significant COPD with COPD acute exacerbation with concerns of possible right lower lobe pneumonia. Patient was noted to be RSV positive and reports to most likely waiting a little too long at home before coming to the hospital for evaluation. Patient currently maintained on 4 to 5 L via nasal cannula and chronically wears oxygen outpatient. Patient being treated with supportive care for RSV as well as COPD is maintained on [id number] DuoNeb treatments along with steroids with pulmonary following closely. Infectious disease following as well and will continue current regimen. Patient was scheduled for discharge today although later in the afternoon developed atrial fibrillation with RVR. Patient does have history of atrial fibrillation and is maintained on Eliquis. Cardiology had been following and had signed off recommending close outpatient follow-up. Patient will stay and be monitored overnight and is being placed on Cardizem drip. Will await cardiology reevaluation for possible medication adjustments. Review of systems: Constitutional: No reports of fatigue, fever, or chills Cardiovascular: No reports of chest pain or palpitations Respiratory: reports of continued shortness of breath although no worse, continued occasional cough, reports an episode of a nosebleed after aggressively blowing nose GI: No reports of nausea, no reports of vomiting, no diarrhea : No reports of dysuria or retention Neurovascular: No reports of generalized weakness All medications have been reviewed PHYSICAL EXAMINATION: GENERAL: The patient is alert and oriented x4, Well developed, thin build, elderly appearing, ill-appearing HEENT: Pupils are round and equally reacting to light. EOMI. no scleral icterus. No conjunctival pallor. Normocephalic, atraumatic. No pharyngeal erythema. No thyromegaly. CARDIOVASCULAR: S1 and S2 muffled, irregular PULMONARY: diminished breath sounds bilaterally with faint expiratory wheezing and coarse rhonchi noted. ABDOMEN: soft. Nontender on exam. Thin. non-distended, normoactive bowel sounds. No palpable organomegaly. MUSCULOSKELETAL: No joint swelling or deformity. EXTREMITIES: No cyanosis, clubbing, or pedal edema. NEUROLOGICAL: Gross neurological examination did not reveal any focal deficits. Diffuse weakness SKIN: No rashes. Assessment: Chronic obstructive pulmonary disease acute exacerbation with acute RSV with right lower lobe pneumonia, possibly viral pneumonia and gram-negative pneumonia, present on admission History of atrial fibrillation maintained on Eliquis Acute on chronic hypoxic respiratory failure Gastroesophageal reflux disease History of coronary artery disease History of previous myocardial infarction History of osteoarthritis History of thyroid disorder Hypertension Hyperlipidemia Degenerative joint disease history Former smoker History of colitis GI prophylaxis DVT prophylaxis Full code Plan: Recommend to continue with current medications and management with multiple consultations following. Patient had been cleared by pulmonary, cardiology, infectious disease for discharge although when reevaluating vital signs patient was noted to be in atrial fibrillation with RVR. Patient is anticoagulated with Eliquis and cardiology had signed off recommending outpatient follow-up. Cardiology reconsulted and patient is now on Cardizem drip. Adjustments to medications being made We will continue on telemetry monitoring and monitor overnight with possible discharge planning in the next 24 hours Continue supportive care and breathing treatments along with IV steroids. Patient will transition to oral prednisone taper on discharge Will discuss with cardiology with possible discharge planning in the next 24 hours. Due to multiple complex medical issues, overall prognosis is guarded The impression and plan of care has been dictated by María Holcomb, nurse prac titioner as directed. Dr. Danielito MD I have performed a history and examination and MDM of this patient, discussed the same with the dictator, and agree with the dictator's assessment and plan as written ,documented as a scribe. Based on total visit time, I have performed more than 50% of the visit. Any additional findings or plans will be noted. Objective - Vital Signs Vital signs: Vital Signs Temp 98 F 09/17/24 20:00 Pulse 87 09/17/24 21:12 Resp 19 09/17/24 20:00 BP 132/71 09/17/24 20:00 Pulse Ox 96 09/17/24 20:00 FiO2 Intake & Output 09/17/24 09/17/24 09/18/24 06:59 18:59 06:59 Intake Total 240 Output Total 300 Balance -60 Weight 69.3 kg Intake: Oral 240 Output: Urine 300 Other: Voiding Method Urinal Urinal # Voids 2 - Labs CBC & Chem 7: 09/17/24 06:45 09/17/24 06:56 Labs: Abnormal Lab Results - Last 24 Hours (Table) 09/17/24 09/17/24 09/17/24 Range/Units 06:10 06:45 06:56 WBC 20.0 H (3.8-10.6) k/uL MCV 103.2 H (80.0-100.0) fL Neutrophils # 19.0 H (1.3-7.7) k/uL Lymphocytes # 0.4 L (1.0-4.8) k/uL Potassium 3.4 L (3.5-5.1) mmol/L BUN 29 H (9-20) mg/dL Glucose 194 H (74-99) mg/dL POC Glucose (mg/dL) 215 H (70-110) mg/dL 09/17/24 09/17/24 09/17/24 Range/Units 11:45 17:01 20:10 WBC (3.8-10.6) k/uL MCV (80.0-100.0) fL Neutrophils # (1.3-7.7) k/uL Lymphocytes # (1.0-4.8) k/uL Potassium (3.5-5.1) mmol/L BUN (9-20) mg/dL Glucose (74-99) mg/dL POC Glucose (mg/dL) 226 H 219 H 237 H (70-110) mg/dL
[2024-09-18] MEDS: AMIODARONE 200 MG TAB PO SCH (10:17)
[2024-09-18] MEDS: METOPROLOL SUCCINATE (ER) 50 MG TAB.ER.24H PO STA (10:17)
[2024-09-18 11:17] LABS: Glucose,Whole Blood 313 mg/dL (70-110)
[2024-09-18 11:19] LABS: Glucose,Whole Blood 268 mg/dL (70-110)
--- NOTE | 2024-09-18 11:23 | P.PN ---
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 Mancia. He also has prior history of COPD dyslipidemia hypertension osteoarthritis kyphoscoliosis. In 03/2023 he was admitted to the hospital for kyphoplasty. Postoperatively he had EKG changes and he had mild elevation of tr oponin and was treated for postoperative SC with medical management and IV heparin drip. His echo at that time showed preserved LV systolic function with inferior wall hypokinesis which appeared to be old. This time he presented to the hospital because of 2 to 3 days of increased worsening shortness of breath, cough and congestion. On admission she was noticed to have RSV infection. Saturating 90% on 3 L nasal cannula, on admission there was also concerns of possible atrial fibrillation for which she was started on Cardizem drip and IV heparin drip. Cardiology was consulted for atrial fibrillation management. Admission Labs: Hb 15.8, BUN 17, creatinine 0.9, A1c 5.6, NT-proBNP 4700, trop onins were negative, LDL 97, TSH is low at 0.3, free T4 is 1.5, RSV positive Admission EKG: Atrial fibrillation with heart rate 106 bpm, moderate intraventricular conduction delay. Nonspecific ST changes. Imaging: Chest x-ray does not show any signs of consolidation or congestion. Mild scarring noticed in right mid lung base. 09/16/2024 Patient examined this morning at bedside. Patient currently denies chest pain or pressure. He reports mild shortness of breath. He is currently on 6 L nasal cannula. Blood pressures remain elevated. Telemetry reveals sinus mechanism with a heart rate in the 90s. 09/17/2024 Patient examined this morning at the bedside. Patient currently denies chest pa in or pressure. He denies shortness of breath. Blood pressure 146/63. He remains on 5 L nasal cannula. 09/18/2024 Cardiology was reconsulted secondary to A-fib with RVR. Patient was started on IV Cardizem. Patient remains in atrial fibrillation with heart rate in the 90s. He denies chest pain or pressure. Denies shortness of breath. PHYSICAL EXAM: VITAL SIGNS: Reviewed. GENERAL: Well-developed in no acute distress. NECK: Supple. No JVD or thyromegaly LUNGS: Respirations even and unlabored. Lungs essentially clear to auscultation bilaterally. HEART: Irregular rate and rhythm. S1 and S2 heard. EXTREMITIES: Normal range of motion. No clubbing or cyanosis. Peripheral pulses intact. 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 Given additional 50 mg now Add oral amiodarone 400 mg twice daily for 7 days. After 1 week, decrease to 200 mg twice a day. Continue to monitor blood pressure Recommend outpatient ischemic evaluation once patient has recovered from his acute RSV Patient to follow-up postdischarge with Dr. Mancia Nurse practitioner note has been reviewed by physician. Signing provider agrees with the documented findings, assessment, and plan of care documented by RETAIL PHARMACIST as a scribe. Objective - Vital Signs Vital signs: Vital Signs Temp 98.2 F 09/18/24 08:00 Pulse 92 09/18/24 08:34 Resp 18 09/18/24 08:00 BP 141/85 09/18/24 08:00 Pulse Ox 95 09/18/24 08:00 FiO2 Intake & Output 09/17/24 09/18/24 09/18/24 18:59 06:59 18:59 Intake Total 240 133.833 540 Output Total 300 Balance -60 133.833 540 Weight 69.3 kg Intake: Intake, IV Titration 133.833 Amount Diltiazem 125 mg In 133.833 Sodium Chloride 0.9% 100 ml @ 10 MG/HR 10 mls/hr IV .[id number] EDIS Rx#: [id number] Oral 240 540 Output: Urine 300 Other: Voiding Method Urinal Urinal # Voids 2 1 - Labs CBC & Chem 7: 09/17/24 06:45 09/17/24 06:56 Labs: Abnormal Lab Results - Last 24 Hours (Table) 09/17/24 09/17/24 09/17/24 Range/Units 11:45 17:01 20:10 POC Glucose (mg/dL) 226 H 219 H 237 H (70-110) mg/dL 09/18/24 09/18/24 09/18/24 Range/Units 06:07 11:15 11:17 POC Glucose (mg/dL) 206 H 313 H 268 H (70-110) mg/dL Microbiology - Last 24 Hours (Table) 09/12/24 18:15 Blood Culture - Final Blood
[2024-09-18 14:03] VITALS: BMI 21.3
--- NOTE | 2024-09-18 15:31 | P.PN ---
Subjective Progress Note Date: 09/18/24 Principal diagnosis: Reason for follow-up is RSV and leukocytosis Patient is a 84-year-old male with a past medical history significant for Atrial Fibrillation, Coronary Artery Disease (CAD), Cancer, COPD, GERD/Reflux, Hyperlipidemia, Hypertension, Myocardial Infarction (MT), Osteoarthritis (OA), Thyroid Disorder presenting to the hospital for evaluation of increasing shortness of breath cough and fever, patient be diagnosed with RSV concerning for possible pneumonia prompting this consultation. On today's evaluation that is 09/18/2024, the patient continues to be afebrile, the patient is down to 4 L nasal oxygen and breathing slightly comfortably, the Pt denies having any chest pain or any worsening cough, the patient denies having any abdominal pain no vomiting or any diarrhea. No new labs has been obtained today sputum with Radha Objective - Vital Signs Vital signs: Vital Signs Temp 98.2 F 09/18/24 08:00 Pulse 109 H 09/18/24 11:43 Resp 18 09/18/24 11:43 BP 115/59 09/18/24 11:43 Pulse Ox 95 09/18/24 11:43 FiO2 Intake & Output 09/17/24 09/18/24 09/18/24 18:59 06:59 18:59 Intake Total 240 133.833 540 Output Total 300 Balance -60 133.833 540 Weight 69.3 kg 69.3 kg Intake: Intake, IV Titration 133.833 Amount Diltiazem 125 mg In 133.833 Sodium Chloride 0.9% 100 ml @ 10 MG/HR 10 mls/hr IV .[id number] [facility] Rx#: [id number] Oral 240 540 Output: Urine 300 Other: Voiding Method Urinal Urinal # Voids 2 1 - Exam GENERAL DESCRIPTION: An elderly male lying in bed in no distress RESPIRATORY SYSTEM: Unlabored breathing , coarse breath sounds bilaterally HEART: S1 S2 regular rate and rhythm , ABDOMEN: Soft , no tenderness EXTREMITIES: No edema feet - Labs CBC & Chem 7: 09/17/24 06:45 09/17/24 06:56 Labs: Abnormal Lab Results - Last 24 Hours (Table) 09/17/24 09/17/24 09/18/24 Range/Units 17:01 20:10 06:07 POC Glucose (mg/dL) 219 H 237 H 206 H (70-110) mg/dL 09/18/24 09/18/24 Range/Units 11:15 11:17 POC Glucose (mg/dL) 313 H 268 H (70-110) mg/dL Microbiology - Last 24 Hours (Table) 09/12/24 18:15 Blood Culture - Final Blood Assessment and Plan (1) Leukocytosis Current Visit: Yes Status: Acute Code(s): D72.829 - ELEVATED WHITE BLOOD CELL COUNT, UNSPECIFIED SNOMED Code(s): 933125066 (2) Community acquired pneumonia Current Visit: Yes Status: Acute Code(s): J18.9 - PNEUMONIA, UNSPECIFIED ORGANISM SNOMED Code(s): 181946623 (3) RSV bronchiolitis Current Visit: Yes Status: Acute Code(s): J21.0 - ACUTE BRONCHIOLITIS DUE TO RESPIRATORY SYNCYTIAL VIRUS SNOMED Code(s): 17404749 Plan: 1patient presented hospital with increasing shortness of breath cough which is likely multifactorial in this patient has been diagnosed with RSV and concern for possible component secondary to pneumonia 2-worsening leukocytosis more likely steroid related as no evidence of any worsening infection 3-patient slowly clinically improving requiring less oxygen to continue with Rocephin along with steroids and bronchodilator and monitor Clinical course closely Dictation was produced using [employer] dictation software. please excuse any grammatical, word or spelling errors.
[2024-09-18 16:30] LABS: Glucose,Whole Blood 252 mg/dL (70-110)
--- NOTE | 2024-09-18 16:32 | P.PN ---
Subjective Progress Note Date: 09/18/24 This is a pleasant 84-year-old male patient with a known history of oxygen depe ndent chronic obstructive pulmonary disease maintained on Trelegy and albuterol in the outpatient setting, former smoker. He follows with Dr. Bowers in the office. He also has a history of hypertension, hyperlipidemia, gastroesophageal reflux disease, hypothyroidism. He presented here to the emergency room yesterday with a 3 to 4-day history of increasing shortness of breath, cough and congestion. Was pulse ox readings were low at home in the 80s. Chest x-ray reveals evidence of COPD. There is a vague infiltrate within the periphery of the left midlung. White count 8.6. Hemoglobin 13.9. Platelets 146. Sodium 134. Potassium 3.8. Bicarb 25. BUN 17. Creatinine 0.74. Glucose 214. Troponins 0.037,. 0.032, 0.033. proBNP 4780. EKG reveals paroxysmal atrial fibrillation. His viral screen is positive for RSV. He is seen today in consultation in the emergency department. He is currently sitting up on the stretcher. Awake and alert in no acute distress. He is maintaining O2 saturations in the 90s on 3 L/min per nasal cannula. He is afebrile. He is tachycardic. On 09/14/2024, the patient is being seen for a follow-up. The patient was seen in consultation yesterday and today she is being seen for a follow-up. The patient came in with an acute on top of chronic hypoxic khanh failure secondary to acute RSV infection. The patient was not also atrial fibrillation with rapid ventricular response. The patient has noted diastolic heart failure. Her A-fib was other new onset and she had also an minimal troponin leak. For now, the patient remains on Cardizem drip at 10 mg an hour. She remains on IV heparin. She is on DuoNeb updrafts, Symbicort and IV Solu-Medrol 60 mg every 6 hours. She was also covered empirically with IV antibiotics. She is on a combination of Rocephin and Zithromax. For now, the patient has no specific complaints. Feeling better compared to yesterday. D-dimer is at 0.42. Procalcitonin level is at 0.12. The white cell count of 23 when he was 15.9 and the platelet count of 196. Rest of the electrolytes were all within normal limits. She is currently on 3 liters of oxygen by nasal cannula with a pulse ox of 92%. On 09/15/2024, the patient is being seen for a follow-up. The patient continues to have difficulties in breathing, cough, congestion, bronchospasm and wheezing. The patient has an acute on top of chronic hypoxic respiratory failure/acute exacerbation of diastolic heart failure and acute RSV infection. The patient also had A-fib RVR at the time of admission. A repeat echocardiogram was done this morning and the patient has impaired LV function with an EF of around 30% and that ventricular systolic pressure of 58. The patient is currently on DuoNeb nebulized treatments [id number]. Remains on Symbicort as maintenance 2 puffs twice a day. Remains on IV Solu-Medrol 60 mg every 6 hours and the patient is on empiric antibiotic coverage with IV Rocephin. Meanwhile, the patient was started on Diflucan regarding some Radha in his sputum, likely oropharyngeal candidiasis/colonization. The patient remains in atrial fibrillation. He is currently on Toprol-XL 100 mg p.o. daily. Remains on Cardi zem drip at 10 mg an hour. Remains on anticoagulation with Eliquis. Echocardiogram was noted. 09/16/2024, the patient is feeling slightly improved compared to yesterday. Cough and congestion still present although subsided compared to yesterday. Denies having any chest pain. He remains on oxygen at 6 L/min nasal cannula. His pulse ox is currently in the order of 97%. The patient has also converted to normal sinus mechanism. He has history of paroxysmal atrial fibrillation. He is currently off Cardizem drip and the patient is currently on metoprolol XL 100 mg p.o. daily, and he was started on anticoagulation with Eliquis 5 mg p.o. twice a day. He is also on a combination of Entresto 97/103 1 tablet twice a day, Aldactone 25 mg p.o. daily, Farxiga 10 mg p.o. daily and hydralazine 25 mg p.o. 4 times daily and Imdur 10 mg p.o. daily. This was started as the patient was found to have significant cardiomyopathy. Echocardiogram showed a new onset cardiomyopathy with an ejection fraction of 30 to 35% and this is being followed up. In regards to his CF exacerbation RSV infection, he remains on DuoNeb updrafts, Symbicort, and is also on IV Solu-Medrol 60 mg every 6 hours. No o ther significant events overnight. His labs show a white cell count of 18, hemoglobin of 13.8 and a platelet count of 248. Sodium level is at 137, BUN is 22 with a creatinine of 0.7. Potassium level is at 3.8. 09/17/2024, the patient is being seen for a follow-up. Patient is being treated for acute exacerbation secondary to acute RSV infection. The patient also had developed atrial fibrillation and current rhythm is back into sinus. He is known to have COPD. He remains on oxygen and patient's FiO2 has been weaned down to 40 Suboxone by nasal cannula and the pulse ox is around 96%. Remains on bronchodilators. Remains on IV Solu-Medrol. Remains on Symbicort as maintenance. He is also on metoprolol 100 mg p.o. daily and anticoagulation with Eliquis. He is on Farxiga 10 mg p.o. daily and Entresto and Aldactone. Blood work shows a white cell count of 20 with a hemoglobin 14.4 and a platelet count of 299. BUN is 29 with a creatinine of 1.0 and his sodium is at 137 and a potassium level is at 3.4. No new complaints. Clinically improving. On today's evaluation of 09/18/2024, the patient is being seen for a follow-up. Respiratory status is improved and the patient seems to be less bronchospastic and wheezy. The patient remains on bronchodilators and IV Solu-Medrol. [facility], the patient developed a new onset atrial fibrillation with RVR. He remains atrial fibrillation. Heart rate is under better control. He has underlying cardiomyopathy with an ejection fraction of 30 to 35%. He also has previous history of CAD, hypertension hyperlipidemia. No chest pain. No new blood work from today. Cardiology has been consulted regarding new onset atrial fibrillation. The patient is currently on anticoagulation with Eliquis 5 mg p.o. twice daily. The patient is also on amiodarone 4 mg p.o. twice daily. Cardizem drip has been discontinued and the patient is also on metoprolol XL 150 mg p.o. daily. Rest of medications remain unchanged. Remains on Symbicort. Re kae on DuoNeb updrafts. Remains on IV Solu-Medrol. Will be switched to a prednisone burst taper. In regards to his CHF, the patient remains on Entresto, Aldactone, metoprolol, Farxiga and Bumex. Objective - Vital Signs Vital signs: Vital Signs Temp 98.2 F 09/18/24 08:00 Pulse 109 H 09/18/24 11:43 Resp 18 09/18/24 11:43 BP 115/59 09/18/24 11:43 Pulse Ox 95 09/18/24 11:43 FiO2 Intake & Output 09/17/24 09/18/24 09/18/24 18:59 06:59 18:59 Intake Total 240 133.833 540 Output Total 300 Balance -60 133.833 540 Weight 69.3 kg Intake: Intake, IV Titration 133.833 Amount Diltiazem 125 mg In 133.833 Sodium Chloride 0.9% 100 ml @ 10 MG/HR 10 mls/hr IV .[id number] [facility] Rx#: [id number] Oral 240 540 Output: Urine 300 Other: Voiding Method Urinal Urinal # Voids 2 1 - Exam GENERAL EXAM: Alert, pleasant, dyspneic 84-year-old male, on 3 L nasal cannula, fairly comfortable in no apparent distress. HEAD: Normocephalic. EYES: Normal reaction of pupils, equal size. NOSE: Clear with pink turbinates. THROAT: No erythema or exudates. NECK: No masses, no JVD. CHEST: No chest wall deformity. LUNGS: Equal air entry with bilateral scattered rhonchi, wheeze, diminished. CVS: S1 and S2 normal with no audible murmur, cardiac rhythm is sinus ABDOMEN: No hepatosplenomegaly, normal bowel sounds, no guarding or rigidity. SPINE: No scoliosis or deformity SKIN: No rashes CENTRAL NERVOUS SYSTEM: No focal deficits, tone is normal in all 4 extremities. EXTREMITIES: There is no peripheral edema. No clubbing, no cyanosis. Peripheral pulses are intact. - Labs CBC & Chem 7: 09/17/24 06:45 09/17/24 06:56 Labs: Abnormal Lab Results - Last 24 Hours (Table) 09/17/24 09/17/24 09/18/24 Range/Units 17:01 20:10 06:07 POC Glucose (mg/dL) 219 H 237 H 206 H (70-110) mg/dL 09/18/24 09/18/24 Range/Units 11:15 11:17 POC Glucose (mg/dL) 313 H 268 H (70-110) mg/dL Microbiology - Last 24 Hours (Table) 09/12/24 18:15 Blood Culture - Final Blood Assessment and Plan Plan: Acute on chronic hypoxemic respiratory failure secondary to an acute exacerbation of chronic obstructive pulmonary disease complicated by RSV, systolic congestive heart failure, atrial fibrillation with RVR, currently on 3 liters of oxygen by nasal cannula, clinically slightly. Previous echocardiogram from 2022 showed a preserved LV function with a normal ejection fraction of 55 to 60% and the patient also had grade 1 diastolic dysfunction, moderate degree of pulmonary hypertension with estimated right ventricular systolic pressure of around 50. Repeat echocardiogram shows impairment LV function with an EF of around 30 to 35%. The patient is currently on 3 L of O2 nasal cannula Acute RSV infection, remains on bronchodilators and steroids and patient remains on IV Solu-Medrol. Clinically improved and the patient seems to be less bronchospastic and wheezy on today's evaluation. Acute exacerbation of systolic heart failure. Echocardiogram shows systolic heart failure with an ejection fraction of 30 to 35% with secondary pulm hypertension. CHF is being optimized and the patient is currently on a combination of Toprol, Farxiga, Entresto, and Aldactone. New onset atrial fibrillation with a rapid ventricular response , currently on Toprol-XL and amiodarone.. Remains on anticoagulation with Eliquis. Mild troponin leak secondary to above Chronic obstructive pulmonary disease , home oxygen mainly at night Hypertension Hyperlipidemia Hypothyroidism Gastroesophageal reflux disease Acute leukocytosis, will monitor Plan: The patient is stable clinically improving. Oxygenation is also improved and the patient is currently down to 3 L of O2 nasal cannula Continue Symbicort Continue DuoNeb the writings on the clock Start prednisone burst taper and discontinue the IV Solu-Medrol. Will start the patient on prednisone 40 mg p.o. daily. Antibiotic coverage is empiric at this point in time, procalcitonin level is not elevated at 0.12. The patient remains on IV Rocephin Monitor the white cell count Anticoagulation with Eliquis Norvasc 5 mg p.o. daily for blood pressure control Toprol-XL 100 mg p.o. daily Entresto 97/103 1 tablet twice a day, Aldactone 25 mg p.o. daily, Farxiga 10 mg p.o. daily, hydralazine and nitrates and Bumex 1 mg p.o. daily. We will continue to follow and make further recommendations based on his clinical status
[2024-09-18] MEDS: predniSONE 20 MG TAB PO SCH (17:10)
[2024-09-18 20:43] LABS: Glucose,Whole Blood 206 mg/dL (70-110)
[2024-09-18] MEDS: INSULIN GLARGINE (LANTUS) 100 UNIT/ML SYR SQ SCH (21:11)
[2024-09-19 06:12] LABS: Glucose,Whole Blood 111 mg/dL (70-110)
[2024-09-19 06:26] LABS: Basophils % (A) 0 %; Eosinophils # (A) 0.1 k/uL (0-0.7); Eosinophils % (A) 0 %; HCT 44.9 % (39.0-53.0); HGB 14.5 gm/dL (13.0-17.5); Lymphocytes # (A) 0.4 k/uL (1.0-4.8); Lymphocytes % (A) 2 %; MCH 33.3 pg (25.0-35.0); MCHC 32.3 g/dL (31.0-37.0); MCV 102.9 fL (80.0-100.0); Macrocytosis Slight; Mean Platelet Volume 9.3; Monocytes # (A) 0.8 k/uL (0-1.0); Monocytes % (A) 3 %; Neutrophils # (A) 21.4 k/uL (1.3-7.7); Neutrophils % (A) 95 %; Platelet Count 331 k/uL (150-450); RBC 4.36 m/uL (4.30-5.90); RDW 12.1 % (11.5-15.5); WBC 22.7 k/uL (3.8-10.6)
[2024-09-19 06:43] LABS: African American GFR (CKD) 74 (>60 ml/min/1.73 sqM); Anion Gap 7 mmol/L; Blood Urea Nitrogen 43 mg/dL (9-20); Carbon Dioxide 23 mmol/L (22-30); Chloride 106 mmol/L (98-107); Glucose 109 mg/dL (74-99); Magnesium 2.3 mg/dL (1.6-2.3); Non-African American GFR(CKD) 64 (>60 ml/min/1.73 sqM); Potassium 3.7 mmol/L (3.5-5.1); Sodium 136 mmol/L (137-145)
--- NOTE | 2024-09-19 07:36 | P.PN ---
Subjective Progress Note Date: 09/18/24 This is a pleasant 84-year-old male who was recently admitted with increasing shortness of breath with significant COPD with COPD acute exacerbation with concerns of possible right lower lobe pneumonia. Patient was noted to be RSV positive and reports to most likely waiting a little too long at home before coming to the hospital for evaluation. Patient currently maintained on 4 to 5 L via nasal cannula and chronically wears oxygen outpatient. Patient being treated with supportive care for RSV as well as COPD is maintained on [id number]-ycl-opape DuoNeb treatments along with steroids with pulmonary following closely. Infectious disease following as well and will continue current regimen. Patient was scheduled for discharge today although later in the afternoon developed atrial fibrillation with RVR. Patient does have history of atrial fibrillation and is maintained on Eliquis. Cardiology had been following and had signed off recommending close outpatient follow-up. Patient will stay and be monitored overnight and is being placed on Cardizem drip. Will await cardiology reevaluation for possible medication adjustments. 09/18/2024 Patient seen and evaluated in follow-up with cardiology following again patient was placed on Cardizem drip as patient was found to be in A-fib RVR. Patient continues to be in A-fib with adjustments to medications being made and patient will be transitioned off Cardizem drip today. Encouraged increase activity as tolerated with getting up out of the bed more often and sitting in the chair and walking more frequently. Patient is afebrile with no reports of worsening shortness of breath. Patient maintained on 4 to 5 L and chronically wears oxygen outpatient. Review of systems: Constitutional: No reports of fatigue, fever, or chills Cardiovascular: No reports of chest pain or palpitations Respiratory: reports of continued shortness of breath although no worse, continued occasional cough GI: No reports of nausea, no reports of vomiting, no diarrhea : No reports of dysuria or retention Neurovascular: No reports of generalized weakness All medications have been reviewed PHYSICAL EXAMINATION: GENERAL: The patient is alert and oriented x4, Well developed, thin build, elderly appearing, ill-appearing HEENT: Pupils are round and equally reacting to light. EOMI. no scleral icterus. No conjunctival pallor. Normocephalic, atraumatic. No pharyngeal erythema. No thyromegaly. CARDIOVASCULAR: S1 and S2 muffled, irregular PULMONARY: diminished breath sounds bilaterally with faint expiratory wheezing and coarse rhonchi noted. ABDOMEN: soft. Nontender on exam. Thin. non-distended, normoactive bowel sounds. No palpable organomegaly. MUSCULOSKELETAL: No joint swelling or deformity. EXTREMITIES: No cyanosis, clubbing, or pedal edema. NEUROLOGICAL: Gross neurological examination did not reveal any focal deficits. Diffuse weakness SKIN: No rashes. Assessment: Chronic obstructive pulmonary disease acute exacerbation with acute RSV with right lower lobe pneumonia, possibly viral pneumonia and gram-negative pneumonia, present on admission History of atrial fibrillation maintained on Eliquis, currently in RVR being placed back on Cardizem drip Acute on chronic hypoxic respiratory failure Gastroesophageal reflux disease History of coronary artery disease History of previous myocardial infarction History of osteoarthritis History of thyroid disorder Hypertension Hyperlipidemia Degenerative joint disease history Former smoker History of colitis GI prophylaxis DVT prophylaxis Full code Plan: Recommend to continue with current medications and management with multiple consultations following. Patient had been cleared by pulmonary, cardiology, infectious disease for discharge although when reevaluating vital signs patient was noted to be in atrial fibrillation with RVR. Patient is anticoagulated with Eliquis and cardiology following again making adjustments and will be transitioned off Cardizem drip. We will continue on telemetry monitoring and monitor overnight with possible discharge planning in the next 24 hours once cleared by cardiology Continue supportive care and breathing treatments along with IV steroids. Patient will transition to oral prednisone taper on discharge Will discuss with cardiology with possible discharge planning in the next 24 hours. Due to multiple complex medical issues, overall prognosis is guarded The impression and plan of care has been dictated by María Holcomb, nurse practitioner as directed. Dr. Danielito MD I have performed a history and examination and MDM of this patient, discussed the same with the dictator, and agree with the dictator's assessment and plan as written ,documented as a scribe. Based on total visit time, I have performed more than 50% of the visit. Any additional findings or plans will be noted. Objective - Vital Signs Vital signs: Vital Signs Temp 98.2 F 09/18/24 08:00 Pulse 92 09/18/24 13:32 Resp 18 09/18/24 11:43 BP 115/59 09/18/24 11:43 Pulse Ox 95 09/18/24 11:43 FiO2 Intake & Output 09/17/24 09/18/24 09/18/24 18:59 06:59 18:59 Intake Total 240 133.833 540 Output Total 300 Balance -60 133.833 540 Weight 69.3 kg 69.3 kg Intake: Intake, IV Titration 133.833 Amount Diltiazem 125 mg In 133.833 Sodium Chloride 0.9% 100 ml @ 10 MG/HR 10 mls/hr IV .[id number] [facility] Rx#: [id number] Oral 240 540 Output: Urine 300 Other: Voiding Method Urinal Urinal # Voids 2 1 - Labs CBC & Chem 7: 09/19/24 05:36 09/19/24 05:36 Labs: Abnormal Lab Results - Last 24 Hours (Table) 09/17/24 09/17/24 09/18/24 Range/Units 17:01 20:10 06:07 POC Glucose (mg/dL) 219 H 237 H 206 H (70-110) mg/dL 09/18/24 09/18/24 Range/Units 11:15 11:17 POC Glucose (mg/dL) 313 H 268 H (70-110) mg/dL Microbiology - Last 24 Hours (Table) 09/12/24 18:15 Blood Culture - Final Blood
[2024-09-19] MEDS: METOPROLOL SUCCINATE (ER) 100 MG TAB.ER.24H PO SCH (09:16)
[2024-09-19 11:37] LABS: Glucose,Whole Blood 189 mg/dL (70-110)
--- NOTE | 2024-09-19 14:25 | P.PN ---
Subjective Progress Note Date: 09/19/24 This is a pleasant 84-year-old male patient with a known history of oxygen depe ndent chronic obstructive pulmonary disease maintained on Trelegy and albuterol in the outpatient setting, former smoker. He follows with Dr. Bowers in the office. He also has a history of hypertension, hyperlipidemia, gastroesophageal reflux disease, hypothyroidism. He presented here to the emergency room yesterday with a 3 to 4-day history of increasing shortness of breath, cough and congestion. Was pulse ox readings were low at home in the 80s. Chest x-ray reveals evidence of COPD. There is a vague infiltrate within the periphery of the left midlung. White count 8.6. Hemoglobin 13.9. Platelets 146. Sodium 134. Potassium 3.8. Bicarb 25. BUN 17. Creatinine 0.74. Glucose 214. Troponins 0.037,. 0.032, 0.033. proBNP 4780. EKG reveals paroxysmal atrial fibrillation. His viral screen is positive for RSV. He is seen today in consultation in the emergency department. He is currently sitting up on the stretcher. Awake and alert in no acute distress. He is maintaining O2 saturations in the 90s on 3 L/min per nasal cannula. He is afebrile. He is tachycardic. On 09/14/2024, the patient is being seen for a follow-up. The patient was seen in consultation yesterday and today she is being seen for a follow-up. The patient came in with an acute on top of chronic hypoxic khanh failure secondary to acute RSV infection. The patient was not also atrial fibrillation with rapid ventricular response. The patient has noted diastolic heart failure. Her A-fib was other new onset and she had also an minimal troponin leak. For now, the patient remains on Cardizem drip at 10 mg an hour. She remains on IV heparin. She is on DuoNeb updrafts, Symbicort and IV Solu-Medrol 60 mg every 6 hours. She was also covered empirically with IV antibiotics. She is on a combination of Rocephin and Zithromax. For now, the patient has no specific complaints. Feeling better compared to yesterday. D-dimer is at 0.42. Procalcitonin level is at 0.12. The white cell count of 23 when he was 15.9 and the platelet count of 196. Rest of the electrolytes were all within normal limits. She is currently on 3 liters of oxygen by nasal cannula with a pulse ox of 92%. On 09/15/2024, the patient is being seen for a follow-up. The patient continues to have difficulties in breathing, cough, congestion, bronchospasm and wheezing. The patient has an acute on top of chronic hypoxic respiratory failure/acute exacerbation of diastolic heart failure and acute RSV infection. The patient also had A-fib RVR at the time of admission. A repeat echocardiogram was done this morning and the patient has impaired LV function with an EF of around 30% and that ventricular systolic pressure of 58. The patient is currently on DuoNeb nebulized treatments [id number]. Remains on Symbicort as maintenance 2 puffs twice a day. Remains on IV Solu-Medrol 60 mg every 6 hours and the patient is on empiric antibiotic coverage with IV Rocephin. Meanwhile, the patient was started on Diflucan regarding some Radha in his sputum, likely oropharyngeal candidiasis/colonization. The patient remains in atrial fibrillation. He is currently on Toprol-XL 100 mg p.o. daily. Remains on Cardi zem drip at 10 mg an hour. Remains on anticoagulation with Eliquis. Echocardiogram was noted. 09/16/2024, the patient is feeling slightly improved compared to yesterday. Cough and congestion still present although subsided compared to yesterday. Denies having any chest pain. He remains on oxygen at 6 L/min nasal cannula. His pulse ox is currently in the order of 97%. The patient has also converted to normal sinus mechanism. He has history of paroxysmal atrial fibrillation. He is currently off Cardizem drip and the patient is currently on metoprolol XL 100 mg p.o. daily, and he was started on anticoagulation with Eliquis 5 mg p.o. twice a day. He is also on a combination of Entresto 97/103 1 tablet twice a day, Aldactone 25 mg p.o. daily, Farxiga 10 mg p.o. daily and hydralazine 25 mg p.o. 4 times daily and Imdur 10 mg p.o. daily. This was started as the patient was found to have significant cardiomyopathy. Echocardiogram showed a new onset cardiomyopathy with an ejection fraction of 30 to 35% and this is being followed up. In regards to his CF exacerbation RSV infection, he remains on DuoNeb updrafts, Symbicort, and is also on IV Solu-Medrol 60 mg every 6 hours. No o ther significant events overnight. His labs show a white cell count of 18, hemoglobin of 13.8 and a platelet count of 248. Sodium level is at 137, BUN is 22 with a creatinine of 0.7. Potassium level is at 3.8. 09/17/2024, the patient is being seen for a follow-up. Patient is being treated for acute exacerbation secondary to acute RSV infection. The patient also had developed atrial fibrillation and current rhythm is back into sinus. He is known to have COPD. He remains on oxygen and patient's FiO2 has been weaned down to 40 Suboxone by nasal cannula and the pulse ox is around 96%. Remains on bronchodilators. Remains on IV Solu-Medrol. Remains on Symbicort as maintenance. He is also on metoprolol 100 mg p.o. daily and anticoagulation with Eliquis. He is on Farxiga 10 mg p.o. daily and Entresto and Aldactone. Blood work shows a white cell count of 20 with a hemoglobin 14.4 and a platelet count of 299. BUN is 29 with a creatinine of 1.0 and his sodium is at 137 and a potassium level is at 3.4. No new complaints. Clinically improving. On today's evaluation of 09/18/2024, the patient is being seen for a follow-up. Respiratory status is improved and the patient seems to be less bronchospastic and wheezy. The patient remains on bronchodilators and IV Solu-Medrol. [facility] [place], the patient developed a new onset atrial fibrillation with RVR. He remains atrial fibrillation. Heart rate is under better control. He has underlying cardiomyopathy with an ejection fraction of 30 to 35%. He also has previous history of CAD, hypertension hyperlipidemia. No chest pain. No new blood work from today. Cardiology has been consulted regarding new onset atrial fibrillation. The patient is currently on anticoagulation with Eliquis 5 mg p.o. twice daily. The patient is also on amiodarone 4 mg p.o. twice daily. Cardizem drip has been discontinued and the patient is also on metoprolol XL 150 mg p.o. daily. Rest of medications remain unchanged. Remains on Symbicort. Re kae on DuoNeb updrafts. Remains on IV Solu-Medrol. Will be switched to a prednisone burst taper. In regards to his CHF, the patient remains on Entresto, Aldactone, metoprolol, Farxiga and Bumex. 09/19/2024, the patient is being seen for a follow-up. Doing well. No specific complaints. Remains on 4 days of oxygen by nasal cannula with a pulse ox of 92%. Remains atrial fibrillation. The patient remains on DuoNeb updrafts. The patient will was started on a prednisone burst taper. In regards to his atrial fibrillation, he remains on amiodarone 4 mg p.o. twice a day, metoprolol 150 mg p.o. daily. The patient is also on anticoagulation with Eliquis. Blood work from today shows a white cell count of 22 with a hemoglobin 14.5 and a platelet count of 331. White cell count remains slightly elevated. BUN is 43 with a creatinine of 1.07. Sodium levels at 136 and a potassium level is at 3.7. Awake and alert and communicating. Denies having any chest pain. No other significant events overnight. Remains on a combination of Entresto, Aldactone, Farxiga, Bumex and metoprolol. Objective - Vital Signs Vital signs: Vital Signs Temp 97.5 F L 09/19/24 08:00 Pulse 92 09/19/24 08:26 Resp 18 09/19/24 08:00 BP 109/58 09/19/24 08:00 Pulse Ox 94 L 09/19/24 08:00 FiO2 Intake & Output 09/18/24 09/19/24 09/19/24 18:59 06:59 18:59 Intake Total 1198 780 Balance 1198 780 Weight 69.3 kg 69.4 kg Intake: Oral 1198 780 Other: Voiding Method Urinal Urinal Toilet Bedside Commode # Voids 3 2 - Exam GENERAL EXAM: Alert, pleasant, dyspneic 84-year-old male, on 4 L nasal cannula, fairly comfortable in no apparent distress. HEAD: Normocephalic. EYES: Normal reaction of pupils, equal size. NOSE: Clear with pink turbinates. THROAT: No erythema or exudates. NECK: No masses, no JVD. CHEST: No chest wall deformity. LUNGS: Equal air entry with bilateral scattered rhonchi, wheeze, diminished. CVS: S1 and S2 normal with no audible murmur, cardiac rhythm is sinus ABDOMEN: No hepatosplenomegaly, normal bowel sounds, no guarding or rigidity. SPINE: No scoliosis or deformity SKIN: No rashes CENTRAL NERVOUS SYSTEM: No focal deficits, tone is normal in all 4 extremities. EXTREMITIES: There is no peripheral edema. No clubbing, no cyanosis. Peripheral pulses are intact. - Labs CBC & Chem 7: 09/19/24 05:36 09/19/24 05:36 Labs: Abnormal Lab Results - Last 24 Hours (Table) 09/18/24 09/18/24 09/18/24 Range/Units 11:15 11:17 16:18 WBC (3.8-10.6) k/uL MCV (80.0-100.0) fL Neutrophils # (1.3-7.7) k/uL Lymphocytes # (1.0-4.8) k/uL Sodium (137-145) mmol/L BUN (9-20) mg/dL Glucose (74-99) mg/dL POC Glucose (mg/dL) 313 H 268 H 252 H (70-110) mg/dL 09/18/24 09/19/24 09/19/24 Range/Units 20:41 05:36 05:36 WBC 22.7 H (3.8-10.6) k/uL MCV 102.9 H (80.0-100.0) fL Neutrophils # 21.4 H (1.3-7.7) k/uL Lymphocytes # 0.4 L (1.0-4.8) k/uL Sodium 136 L (137-145) mmol/L BUN 43 H (9-20) mg/dL Glucose 109 H (74-99) mg/dL POC Glucose (mg/dL) 206 H (70-110) mg/dL 09/19/24 Range/Units 06:11 WBC (3.8-10.6) k/uL MCV (80.0-100.0) fL Neutrophils # (1.3-7.7) k/uL Lymphocytes # (1.0-4.8) k/uL Sodium (137-145) mmol/L BUN (9-20) mg/dL Glucose (74-99) mg/dL POC Glucose (mg/dL) 111 H (70-110) mg/dL Assessment and Plan Plan: Acute on chronic hypoxemic respiratory failure secondary to an acute exacerbation of chronic obstructive pulmonary disease complicated by RSV, systolic congestive heart failure, atrial fibrillation with RVR, currently on 3 liters of oxygen by nasal cannula, clinically slightly. Previous echocardiogram from 2022 showed a preserved LV function with a normal ejection fraction of 55 to 60% and the patient also had grade 1 diastolic dysfunction, moderate degree of pulmonary hypertension with estimated right ventricular systolic pressure of around 50. Repeat echocardiogram shows impairment LV function with an EF of a round 30 to 35%. The patient is currently on 4 L of O2 nasal cannula Acute RSV infection, remains on bronchodilators and steroids and patient remains on IV Solu-Medrol. Clinically improved and the patient seems to be less bronchospastic and wheezy on today's evaluation. Acute exacerbation of systolic heart failure. Echocardiogram shows systolic heart failure with an ejection fraction of 30 to 35% with secondary pulm hypertension. CHF is being optimized and the patient is currently on a com bination of Toprol, Farxiga, Entresto, and Aldactone. New onset atrial fibrillation with a rapid ventricular response , currently on Toprol-XL and amiodarone.. Remains on anticoagulation with Eliquis. Mild troponin leak secondary to above Chronic obstructive pulmonary disease , home oxygen mainly at night Hypertension Hyperlipidemia Hypothyroidism Gastroesophageal reflux disease Acute leukocytosis, will monitor Plan: The patient is stable clinically improving. Oxygenation is also improved and the patient is currently down to 4 L of O2 nasal cannula Continue Symbicort Continue DuoNeb treatments [id number] Prednisone burst taper Antibiotic coverage is empiric at this point in time, procalcitonin level is not elevated at 0.12. The patient remains on IV Rocephin Monitor the white cell count Anticoagulation with Eliquis Norvasc 5 mg p.o. daily for blood pressure control Toprol-XL 100 mg p.o. daily Entresto 97/103 1 tablet twice a day, Aldactone 25 mg p.o. daily, Farxiga 10 mg p.o. daily, hydralazine and nitrates and Bumex 1 mg p.o. daily. We will continue to follow and make further recommendations based on his clinical status
--- NOTE | 2024-09-19 14:42 | P.PN ---
Subjective Progress Note Date: 09/19/24 Principal diagnosis: Reason for follow-up is RSV and leukocytosis Patient is a 84-year-old male with a past medical history significant for Atrial Fibrillation, Coronary Artery Disease (CAD), Cancer, COPD, GERD/Reflux, Hyperlipidemia, Hypertension, Myocardial Infarction (PA), Osteoarthritis (OA), Thyroid Disorder presenting to the hospital for evaluation of increasing shortness of breath cough and fever, patient be diagnosed with RSV concerning for possible pneumonia prompting this consultation. On today's evaluation that is 09/19/2024, patient did not have any fever and denies any chills, patient is breathing slightly comfortably and is down to 4 L nasal cannula oxygen, patient with no chest pain or any worsening cough patient did not have any abdominal pain nausea vomiting or any loose stools, mention feeling better wants to go home. Patient white count is 22.7 creatinine 1.07 Objective - Vital Signs Vital signs: Vital Signs Temp 97.5 F L 09/19/24 08:00 Pulse 90 09/19/24 12:12 Resp 19 09/19/24 11:54 BP 117/55 09/19/24 11:54 Pulse Ox 92 L 09/19/24 11:54 FiO2 Intake & Output 09/18/24 09/19/24 09/19/24 18:59 06:59 18:59 Intake Total 1198 1020 Balance 1198 1020 Weight 69.3 kg 69.4 kg Intake: Oral 1198 1020 Other: Voiding Method Urinal Urinal Toilet Bedside Commode # Voids 3 2 - Exam GENERAL DESCRIPTION: An elderly male lying in bed in no distress RESPIRATORY SYSTEM: Unlabored breathing , coarse breath sounds bilaterally HEART: S1 S2 regular rate and rhythm , ABDOMEN: Soft , no tenderness EXTREMITIES: No edema feet - Labs CBC & Chem 7: 09/19/24 05:36 09/19/24 05:36 Labs: Abnormal Lab Results - Last 24 Hours (Table) 09/18/24 09/18/24 09/19/24 Range/Units 16:18 20:41 05:36 WBC 22.7 H (3.8-10.6) k/uL MCV 102.9 H (80.0-100.0) fL Neutrophils # 21.4 H (1.3-7.7) k/uL Lymphocytes # 0.4 L (1.0-4.8) k/uL Sodium (137-145) mmol/L BUN (9-20) mg/dL Glucose (74-99) mg/dL POC Glucose (mg/dL) 252 H 206 H (70-110) mg/dL 09/19/24 09/19/24 09/19/24 Range/Units 05:36 06:11 11:36 WBC (3.8-10.6) k/uL MCV (80.0-100.0) fL Neutrophils # (1.3-7.7) k/uL Lymphocytes # (1.0-4.8) k/uL Sodium 136 L (137-145) mmol/L BUN 43 H (9-20) mg/dL Glucose 109 H (74-99) mg/dL POC Glucose (mg/dL) 111 H 189 H (70-110) mg/dL Assessment and Plan (1) Leukocytosis Current Visit: Yes Status: Acute Code(s): D72.829 - ELEVATED WHITE BLOOD CELL COUNT, UNSPECIFIED SNOMED Code(s): 873854358 (2) Community acquired pneumonia Current Visit: Yes Status: Acute Code(s): J18.9 - PNEUMONIA, UNSPECIFIED ORGANISM SNOMED Code(s): 675614546 (3) RSV bronchiolitis Current Visit: Yes Status: Acute Code(s): J21.0 - ACUTE BRONCHIOLITIS DUE TO RESPIRATORY SYNCYTIAL VIRUS SNOMED Code(s): 31065012 Plan: 1patient presented hospital with increasing shortness of breath cough which is likely multifactorial in this patient has been diagnosed with RSV and concern for possible component secondary to pneumonia 2-worsening leukocytosis more likely steroid related as no evidence of any worsening infection, Solu-Medrol has been cut back we will watch white count closely also covered with Diflucan for possible oropharyngeal candidiasis will add Desitin swish and swallow and see response Dictation was produced using [employer] dictation software. please excuse any grammatical, word or spelling errors. Time with Patient: Less than 30
[2024-09-19 16:18] LABS: Glucose,Whole Blood 213 mg/dL (70-110)
[2024-09-19] MEDS: NYSTATIN 100,000 UNIT/ML SUSP 500,000 UNIT/5 ML CUP PO SCH (16:41)
[2024-09-19 20:29] LABS: Glucose,Whole Blood 135 mg/dL (70-110)
[2024-09-19] MEDS: TEMAZEPAM 15 MG CAP PO PRN (20:47)
[2024-09-19] MEDS: ZINC OXIDE PASTE (Z-GUARD) 1 APPLIC TOPICAL PRN (20:49)
--- NOTE | 2024-09-19 22:37 | PN ---
PROGRESS NOTE DATE OF SERVICE: 09/19/2024 SUBJECTIVE: This is an 84-year-old gentleman, who was admitted with COPD with acute exacerbation, RSV, and also, had atrial fibrillation with fast ventricular rate. No chest pain, no palpitation. PHYSICAL EXAMINATION: VITAL SIGNS: Pulse 90, blood pressure 117/55, respiration 19. CHEST: A few scattered rhonchi. ABDOMEN: Soft. LABORATORY DATA: Reviewed. ASSESSMENT: 1. Chronic obstructive pulmonary disease with acute exacerbation with acute respiratory syncytial virus with right lower lobe pneumonia. 2. Atrial fibrillation with fast ventricular rate. 3. Gastroesophageal reflux disease. 4. Multiple complex medical issues. RECOMMENDATIONS: Recommended to continue with current management and continue with symptomatic treatment, continue with bronchodilators otherwise. The patient's heart rate is still fluctuating and high. We will continue to monitor with Cardiology. Recommended repeat labs. I would also recommend has been done. AZUCENA / ADILENE: [id number] / MTDD
--- NOTE | 2024-09-20 00:07 | P.PN ---
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 Mancia. He also has prior history of COPD dyslipidemia hypertension osteoarthritis kyphoscoliosis. In 03/2023 he was admitted to the hospital for kyphoplasty. Postoperatively he had EKG changes and he had mild elevation of troponin and was treated for postoperative NC with medical management and IV heparin drip. His echo at that time showed preserved LV systolic function with inferior wall hypokinesis which appeared to be old. This time he presented to the hospital because of 2 to 3 days of increased worsening shortness of breath, cough and congestion. On admission she was no ticed to have RSV infection. Saturating 90% on 3 L nasal cannula, on admission there was also concerns of possible atrial fibrillation for which she was started on Cardizem drip and IV heparin drip. Cardiology was consulted for atrial fibrillation management. Admission Labs: Hb 15.8, BUN 17, creatinine 0.9, A1c 5.6, NT-proBNP 4700, troponins were negative, LDL 97, TSH is low at 0.3, free T4 is 1.5, RSV positive Admission EKG: Atrial fibrillation with heart rate 106 bpm, moderate intraventricular conduction delay. Nonspecific ST changes. Imaging: Chest x-ray does not show any signs of consolidation or congestion. Mild scarring noticed in right mid lung base. 09/16/2024 Patient examined this morning at bedside. Patient currently denies chest pain or pressure. He reports mild shortness of breath. He is currently on 6 L nasal cannula. Blood pressures remain elevated. Telemetry reveals sinus mechanism with a heart rate in the 90s. 09/17/2024 Patient examined this morning at the bedside. Patient currently denies chest pain or pressure. He denies shortness of breath. Blood pressure 146/63. He remains on 5 L nasal cannula. 09/18/2024 Cardiology was reconsulted secondary to A-fib with RVR. Patient was started on IV Cardizem. Patient remains in atrial fibrillation with heart rate in the 90s. He denies chest pain or pressure. Denies shortness of breath. 09/19/2024 Continues to be in atrial fibrillation, heart rate is better controlled, average heart rate around 80-100 bpm, BP 100/54. Blood pressure is much better improved, discontinue hydralazine PHYSICAL EXAM: VITAL SIGNS: Reviewed. GENERAL: Well-developed in no acute distress. NECK: Supple. No JVD or thyromegaly LUNGS: Respirations even and unlabored. Lungs essentially clear to auscultation bilaterally. HEART: Irregular rate and rhythm. S1 and S2 heard. EXTREMITIES: Normal range of motion. No clubbing or cyanosis. Peripheral pulses intact. No lower extremity edema ASSESSMENT: # New onset atrial fibrillation with RVR, currently rate controlled # New worsening cardiomyopathy, likely stress-induced, EF 30 to 35%, likely due to below # RSV infection # Mild to moderate COPD # Prior history of CAD with known ASSURANCE ANALYST of RCA # Essential hypertension # Dyslipidemia PLAN: Continue current cardiac medications including Entresto, Eliquis, aspirin, Lipitor, Bumex, Farxiga, metoprolol xl 150 mg daily, and Aldactone Add oral amiodarone 400 mg twice daily for 7 days. After 1 week, decrease to 200 mg twice a day. Discontinue hydralazine Imdur, amlodipine because of moderate low blood pressure Objective - Vital Signs Vital signs: Vital Signs Temp 98.1 F 09/19/24 20:00 Pulse 80 09/19/24 21:27 Resp 18 09/19/24 21:27 BP 99/51 09/19/24 20:00 Pulse Ox 93 L 09/19/24 20:00 FiO2 Intake & Output 09/19/24 09/19/24 09/20/24 06:59 18:59 06:59 Intake Total 1800 Balance 1800 Weight 69.4 kg Intake: Oral 1800 Other: Voiding Method Urinal Toilet Toilet Bedside Commode Bedside Commode # Voids 2 - Labs CBC & Chem 7: 09/19/24 05:36 09/19/24 05:36 Labs: Abnormal Lab Results - Last 24 Hours (Table) 09/19/24 09/19/24 09/19/24 Range/Units 05:36 05:36 06:11 WBC 22.7 H (3.8-10.6) k/uL MCV 102.9 H (80.0-100.0) fL Neutrophils # 21.4 H (1.3-7.7) k/uL Lymphocytes # 0.4 L (1.0-4.8) k/uL Sodium 136 L (137-145) mmol/L BUN 43 H (9-20) mg/dL Glucose 109 H (74-99) mg/dL POC Glucose (mg/dL) 111 H (70-110) mg/dL 09/19/24 09/19/24 09/19/24 Range/Units 11:36 16:16 20:28 WBC (3.8-10.6) k/uL MCV (80.0-100.0) fL Neutrophils # (1.3-7.7) k/uL Lymphocytes # (1.0-4.8) k/uL Sodium (137-145) mmol/L BUN (9-20) mg/dL Glucose (74-99) mg/dL POC Glucose (mg/dL) 189 H 213 H 135 H (70-110) mg/dL
--- NOTE | 2024-09-20 00:13 | P.PN ---
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 Mancia. He also has prior history of COPD dyslipidemia hypertension osteoarthritis kyphoscoliosis. In 03/2023 he was admitted to the hospital for kyphoplasty. Postoperatively he had EKG changes and he had mild elevation of troponin and was treated for postoperative PA with medical management and IV heparin drip. His echo at that time showed preserved LV systolic function with inferior wall hypokinesis which appeared to be old. This time he presented to the hospital because of 2 to 3 days of increased worsening shortness of breath, cough and congestion. On admission she was no ticed to have RSV infection. Saturating 90% on 3 L nasal cannula, on admission there was also concerns of possible atrial fibrillation for which she was started on Cardizem drip and IV heparin drip. Cardiology was consulted for atrial fibrillation management. Admission Labs: Hb 15.8, BUN 17, creatinine 0.9, A1c 5.6, NT-proBNP 4700, troponins were negative, LDL 97, TSH is low at 0.3, free T4 is 1.5, RSV positive Admission EKG: Atrial fibrillation with heart rate 106 bpm, moderate intraventricular conduction delay. Nonspecific ST changes. Imaging: Chest x-ray does not show any signs of consolidation or congestion. Mild scarring noticed in right mid lung base. 09/16/2024 Patient examined this morning at bedside. Patient currently denies chest pain or pressure. He reports mild shortness of breath. He is currently on 6 L nasal cannula. Blood pressures remain elevated. Telemetry reveals sinus mechanism with a heart rate in the 90s. 09/17/2024 Patient examined this morning at the bedside. Patient currently denies chest pain or pressure. He denies shortness of breath. Blood pressure 146/63. He remains on 5 L nasal cannula. 09/18/2024 Cardiology was reconsulted secondary to A-fib with RVR. Patient was started on IV Cardizem. Patient remains in atrial fibrillation with heart rate in the 90s. He denies chest pain or pressure. Denies shortness of breath. 09/19/2024 Continues to be in atrial fibrillation, heart rate is better controlled, average heart rate around 80-100 bpm, BP 100/54. Blood pressure is much better improved, discontinue hydralazine PHYSICAL EXAM: VITAL SIGNS: Reviewed. GENERAL: Well-developed in no acute distress. NECK: Supple. No JVD or thyromegaly LUNGS: Respirations even and unlabored. Lungs essentially clear to auscultation bilaterally. HEART: Irregular rate and rhythm. S1 and S2 heard. EXTREMITIES: Normal range of motion. No clubbing or cyanosis. Peripheral pulses intact. 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 After 1 week, decrease to 200 mg twice a day. Discontinue hydralazine Imdur, amlodipine because of moderate low blood pressure Objective - Vital Signs Vital signs: Vital Signs Temp 98.1 F 09/19/24 20:00 Pulse 80 09/19/24 21:27 Resp 18 09/19/24 21:27 BP 99/51 09/19/24 20:00 Pulse Ox 93 L 09/19/24 20:00 FiO2 Intake & Output 09/19/24 09/19/24 09/20/24 06:59 18:59 06:59 Intake Total 1800 Balance 1800 Weight 69.4 kg Intake: Oral 1800 Other: Voiding Method Urinal Toilet Toilet Bedside Commode Bedside Commode # Voids 2 - Labs CBC & Chem 7: 09/19/24 05:36 09/19/24 05:36 Labs: Abnormal Lab Results - Last 24 Hours (Table) 09/19/24 09/19/24 09/19/24 Range/Units 05:36 05:36 06:11 WBC 22.7 H (3.8-10.6) k/uL MCV 102.9 H (80.0-100.0) fL Neutrophils # 21.4 H (1.3-7.7) k/uL Lymphocytes # 0.4 L (1.0-4.8) k/uL Sodium 136 L (137-145) mmol/L BUN 43 H (9-20) mg/dL Glucose 109 H (74-99) mg/dL POC Glucose (mg/dL) 111 H (70-110) mg/dL 09/19/24 09/19/24 09/19/24 Range/Units 11:36 16:16 20:28 WBC (3.8-10.6) k/uL MCV (80.0-100.0) fL Neutrophils # (1.3-7.7) k/uL Lymphocytes # (1.0-4.8) k/uL Sodium (137-145) mmol/L BUN (9-20) mg/dL Glucose (74-99) mg/dL POC Glucose (mg/dL) 189 H 213 H 135 H (70-110) mg/dL
[2024-09-20 06:01] LABS: Glucose,Whole Blood 135 mg/dL (70-110)
[2024-09-20 07:59] LABS: Basophils # (A) 0.1 k/uL (0-0.2); Basophils % (A) 0 %; Eosinophils # (A) 0.1 k/uL (0-0.7); Eosinophils % (A) 1 %; HGB 15.3 gm/dL (13.0-17.5); Lymphocytes # (A) 0.6 k/uL (1.0-4.8); Lymphocytes % (A) 4 %; MCH 32.6 pg (25.0-35.0); MCHC 30.6 g/dL (31.0-37.0); MCV 106.4 fL (80.0-100.0); Macrocytosis Slight; Mean Platelet Volume 9.2; Monocytes # (A) 0.7 k/uL (0-1.0); Monocytes % (A) 4 %; Neutrophils # (A) 15.8 k/uL (1.3-7.7); Neutrophils % (A) 91 %; Platelet Count 365 k/uL (150-450); RDW 12.3 % (11.5-15.5); WBC 17.4 k/uL (3.8-10.6)
[2024-09-20 08:20] LABS: African American GFR (CKD) 66 (>60 ml/min/1.73 sqM); Anion Gap 6 mmol/L; Blood Urea Nitrogen 50 mg/dL (9-20); Calcium 9.3 mg/dL (8.4-10.2); Carbon Dioxide 26 mmol/L (22-30); Chloride 104 mmol/L (98-107); Glucose 144 mg/dL (74-99); Non-African American GFR(CKD) 57 (>60 ml/min/1.73 sqM); Sodium 136 mmol/L (137-145)
[2024-09-20 08:21] LABS: Potassium 4.3 mmol/L (3.5-5.1)
--- NOTE | 2024-09-20 11:14 | P.PN ---
Subjective Progress Note Date: 09/20/24 This is a pleasant 84-year-old male patient with a known history of oxygen depe ndent chronic obstructive pulmonary disease maintained on Trelegy and albuterol in the outpatient setting, former smoker. He follows with Dr. Bowers in the office. He also has a history of hypertension, hyperlipidemia, gastroesophageal reflux disease, hypothyroidism. He presented here to the emergency room yesterday with a 3 to 4-day history of increasing shortness of breath, cough and congestion. Was pulse ox readings were low at home in the 80s. Chest x-ray reveals evidence of COPD. There is a vague infiltrate within the periphery of the left midlung. White count 8.6. Hemoglobin 13.9. Platelets 146. Sodium 134. Potassium 3.8. Bicarb 25. BUN 17. Creatinine 0.74. Glucose 214. Troponins 0.037,. 0.032, 0.033. proBNP 4780. EKG reveals paroxysmal atrial fibrillation. His viral screen is positive for RSV. He is seen today in consultation in the emergency department. He is currently sitting up on the stretcher. Awake and alert in no acute distress. He is maintaining O2 saturations in the 90s on 3 L/min per nasal cannula. He is afebrile. He is tachycardic. On 09/14/2024, the patient is being seen for a follow-up. The patient was seen in consultation yesterday and today she is being seen for a follow-up. The patient came in with an acute on top of chronic hypoxic khanh failure secondary to acute RSV infection. The patient was not also atrial fibrillation with rapid ventricular response. The patient has noted diastolic heart failure. Her A-fib was other new onset and she had also an minimal troponin leak. For now, the patient remains on Cardizem drip at 10 mg an hour. She remains on IV heparin. She is on DuoNeb updrafts, Symbicort and IV Solu-Medrol 60 mg every 6 hours. She was also covered empirically with IV antibiotics. She is on a combination of Rocephin and Zithromax. For now, the patient has no specific complaints. Feeling better compared to yesterday. D-dimer is at 0.42. Procalcitonin level is at 0.12. The white cell count of 23 when he was 15.9 and the platelet count of 196. Rest of the electrolytes were all within normal limits. She is currently on 3 liters of oxygen by nasal cannula with a pulse ox of 92%. On 09/15/2024, the patient is being seen for a follow-up. The patient continues to have difficulties in breathing, cough, congestion, bronchospasm and wheezing. The patient has an acute on top of chronic hypoxic respiratory failure/acute exacerbation of diastolic heart failure and acute RSV infection. The patient also had A-fib RVR at the time of admission. A repeat echocardiogram was done this morning and the patient has impaired LV function with an EF of around 30% and that ventricular systolic pressure of 58. The patient is currently on DuoNeb nebulized treatments [id number]. Remains on Symbicort as maintenance 2 puffs twice a day. Remains on IV Solu-Medrol 60 mg every 6 hours and the patient is on empiric antibiotic coverage with IV Rocephin. Meanwhile, the patient was started on Diflucan regarding some Radha in his sputum, likely oropharyngeal candidiasis/colonization. The patient remains in atrial fibrillation. He is currently on Toprol-XL 100 mg p.o. daily. Remains on Cardi zem drip at 10 mg an hour. Remains on anticoagulation with Eliquis. Echocardiogram was noted. 09/16/2024, the patient is feeling slightly improved compared to yesterday. Cough and congestion still present although subsided compared to yesterday. Denies having any chest pain. He remains on oxygen at 6 L/min nasal cannula. His pulse ox is currently in the order of 97%. The patient has also converted to normal sinus mechanism. He has history of paroxysmal atrial fibrillation. He is currently off Cardizem drip and the patient is currently on metoprolol XL 100 mg p.o. daily, and he was started on anticoagulation with Eliquis 5 mg p.o. twice a day. He is also on a combination of Entresto 97/103 1 tablet twice a day, Aldactone 25 mg p.o. daily, Farxiga 10 mg p.o. daily and hydralazine 25 mg p.o. 4 times daily and Imdur 10 mg p.o. daily. This was started as the patient was found to have significant cardiomyopathy. Echocardiogram showed a new onset cardiomyopathy with an ejection fraction of 30 to 35% and this is being followed up. In regards to his CF exacerbation RSV infection, he remains on DuoNeb updrafts, Symbicort, and is also on IV Solu-Medrol 60 mg every 6 hours. No o ther significant events overnight. His labs show a white cell count of 18, hemoglobin of 13.8 and a platelet count of 248. Sodium level is at 137, BUN is 22 with a creatinine of 0.7. Potassium level is at 3.8. 09/17/2024, the patient is being seen for a follow-up. Patient is being treated for acute exacerbation secondary to acute RSV infection. The patient also had developed atrial fibrillation and current rhythm is back into sinus. He is known to have COPD. He remains on oxygen and patient's FiO2 has been weaned down to 40 Suboxone by nasal cannula and the pulse ox is around 96%. Remains on bronchodilators. Remains on IV Solu-Medrol. Remains on Symbicort as maintenance. He is also on metoprolol 100 mg p.o. daily and anticoagulation with Eliquis. He is on Farxiga 10 mg p.o. daily and Entresto and Aldactone. Blood work shows a white cell count of 20 with a hemoglobin 14.4 and a platelet count of 299. BUN is 29 with a creatinine of 1.0 and his sodium is at 137 and a potassium level is at 3.4. No new complaints. Clinically improving. On today's evaluation of 09/18/2024, the patient is being seen for a follow-up. Respiratory status is improved and the patient seems to be less bronchospastic and wheezy. The patient remains on bronchodilators and IV Solu-Medrol. [facility], the patient developed a new onset atrial fibrillation with RVR. He remains atrial fibrillation. Heart rate is under better control. He has underlying cardiomyopathy with an ejection fraction of 30 to 35%. He also has previous history of CAD, hypertension hyperlipidemia. No chest pain. No new blood work from today. Cardiology has been consulted regarding new onset atrial fibrillation. The patient is currently on anticoagulation with Eliquis 5 mg p.o. twice daily. The patient is also on amiodarone 4 mg p.o. twice daily. Cardizem drip has been discontinued and the patient is also on metoprolol XL 150 mg p.o. daily. Rest of medications remain unchanged. Remains on Symbicort. Re kae on DuoNeb updrafts. Remains on IV Solu-Medrol. Will be switched to a prednisone burst taper. In regards to his CHF, the patient remains on Entresto, Aldactone, metoprolol, Farxiga and Bumex. 09/19/2024, the patient is being seen for a follow-up. Doing well. No specific complaints. Remains on 4 days of oxygen by nasal cannula with a pulse ox of 92%. Remains atrial fibrillation. The patient remains on DuoNeb updrafts. The patient will was started on a prednisone burst taper. In regards to his atrial fibrillation, he remains on amiodarone 4 mg p.o. twice a day, metoprolol 150 mg p.o. daily. The patient is also on anticoagulation with Eliquis. Blood work from today shows a white cell count of 22 with a hemoglobin 14.5 and a platelet count of 331. White cell count remains slightly elevated. BUN is 43 with a creatinine of 1.07. Sodium levels at 136 and a potassium level is at 3.7. Awake and alert and communicating. Denies having any chest pain. No other significant events overnight. Remains on a combination of Entresto, Aldactone, Farxiga, Bumex and metoprolol. On 09/20/2024, the patient remains on 4 L of oxygen by nasal cannula. No new complaints. Condition essentially unchanged compared to yesterday. Overall respiratory status is improved as the patient is recovering from an acute COPD exacerbation and RSV infection the patient is currently on DuoNeb updrafts and a prednisone burst taper starting with 40 mg p.o. daily. Cardiac status is also stable. Remains in atrial fibrillation. Remains on anticoagulation with Eliquis. Rest of the cardiac medications per cardiology. Labs show a white cell count of 17 hemoglobin of 15.3 and a platelet count of 365. The platelet count is at 365. BUN is 50 with a creatinine of 1.1. Potassium level is at 4.3 and a sodium levels at 136. No other significant events overnight. Objective - Vital Signs Vital signs: Vital Signs Temp 97.9 F 09/20/24 04:00 Pulse 60 09/20/24 08:09 Resp 17 09/20/24 04:00 BP 107/71 09/20/24 04:00 Pulse Ox 87 L 09/20/24 07:58 FiO2 Intake & Output 04/05/25 04/06/25 04/06/25 18:59 06:59 18:59 Intake Total 1800 240 Balance 1800 240 Weight 69.7 kg Intake: Oral 1800 240 Other: Voiding Method Toilet Toilet Bedside Commode Bedside Commode # Voids 2 3 - Exam GENERAL EXAM: Alert, pleasant, dyspneic 84-year-old male, on 4 L nasal cannula, fairly comfortable in no apparent distress. HEAD: Normocephalic. EYES: Normal reaction of pupils, equal size. NOSE: Clear with pink turbinates. THROAT: No erythema or exudates. NECK: No masses, no JVD. CHEST: No chest wall deformity. LUNGS: Equal air entry with bilateral scattered rhonchi, wheeze, diminished. CVS: S1 and S2 normal with no audible murmur, cardiac rhythm is sinus ABDOMEN: No hepatosplenomegaly, normal bowel sounds, no guarding or rigidity. SPINE: No scoliosis or deformity SKIN: No rashes CENTRAL NERVOUS SYSTEM: No focal deficits, tone is normal in all 4 extremities. EXTREMITIES: There is no peripheral edema. No clubbing, no cyanosis. Periphe ral pulses are intact. - Labs CBC & Chem 7: 09/20/24 07:43 09/20/24 07:43 Labs: Abnormal Lab Results - Last 24 Hours (Table) 09/19/24 09/19/24 09/19/24 Range/Units 11:36 16:16 20:28 WBC (3.8-10.6) k/uL MCV (80.0-100.0) fL MCHC (31.0-37.0) g/dL Neutrophils # (1.3-7.7) k/uL Lymphocytes # (1.0-4.8) k/uL Sodium (137-145) mmol/L BUN (9-20) mg/dL Glucose (74-99) mg/dL POC Glucose (mg/dL) 189 H 213 H 135 H (70-110) mg/dL 09/20/24 09/20/24 09/20/24 Range/Units 05:59 07:43 07:43 WBC 17.4 H (3.8-10.6) k/uL MCV 106.4 H (80.0-100.0) fL MCHC 30.6 L (31.0-37.0) g/dL Neutrophils # 15.8 H (1.3-7.7) k/uL Lymphocytes # 0.6 L (1.0-4.8) k/uL Sodium 136 L (137-145) mmol/L BUN 50 H (9-20) mg/dL Glucose 144 H (74-99) mg/dL POC Glucose (mg/dL) 135 H (70-110) mg/dL Assessment and Plan Plan: Acute on chronic hypoxemic respiratory failure secondary to an acute exacerbation of chronic obstructive pulmonary disease complicated by RSV, systolic congestive heart failure, atrial fibrillation with RVR, currently on 3 liters of oxygen by nasal cannula, clinically slightly. Previous echocardiogram from 2022 showed a preserved LV function with a normal ejection fraction of 55 to 60% and the patient also had grade 1 diastolic dysfunction, moderate degree of pulmonary hypertension with estimated right ventricular systolic pressure of around 50. Repeat echocardiogram shows impairment LV function with an EF of around 30 to 35%. The patient is currently on 4 L of O2 nasal cannula Acute RSV infection, remains on bronchodilators and steroids and patient remains on IV Solu-Medrol. Clinically improved and the patient seems to be less bronchospastic and wheezy on today's evaluation. Acute exacerbation of systolic heart failure. Echocardiogram shows systolic heart failure with an ejection fraction of 30 to 35% with secondary pulm hypertension. CHF is being optimized and the patient is currently on a combination of Toprol, Farxiga, Entresto, and Aldactone. New onset atrial fibrillation with a rapid ventricular response , currently on Toprol-XL and amiodarone.. Remains on anticoagulation with Eliquis. Mild troponin leak secondary to above Chronic obstructive pulmonary disease , home oxygen mainly at night Hypertension Hyperlipidemia Hypothyroidism Gastroesophageal reflux disease Acute leukocytosis, will monitor Plan: The patient is stable clinically improving. Oxygenation is also improved and the patient is currently down to 4 L of O2 nasal cannula, continue same management for now. Continue Symbicort Continue DuoNeb treatments [id number] Prednisone burst taper, currently on a full dose of 40 mg p.o. daily Antibiotic coverage is empiric at this point in time, procalcitonin level is not elevated at 0.12. The patient remains on IV Rocephin Monitor the white cell count, improved compared to yesterday Anticoagulation with Eliquis Norvasc 5 mg p.o. daily for blood pressure control Toprol-XL 100 mg p.o. daily Entresto 97/103 1 tablet twice a day, Aldactone 25 mg p.o. daily, Farxiga 10 mg p.o. daily, hydralazine and nitrates and Bumex 1 mg p.o. daily. We will continue to follow and make further recommendations based on his clinical status
[2024-09-20 11:22] LABS: Glucose,Whole Blood 147 mg/dL (70-110)
--- NOTE | 2024-09-20 13:13 | P.PN ---
Subjective Progress Note Date: 09/20/24 Principal diagnosis: Reason for follow-up is RSV and leukocytosis Patient is a 84-year-old male with a past medical history significant for Atrial Fibrillation, Coronary Artery Disease (CAD), Cancer, COPD, GERD/Reflux, Hyperlipidemia, Hypertension, Myocardial Infarction (CO), Osteoarthritis (OA), Thyroid Disorder presenting to the hospital for evaluation of increasing shortness of breath cough and fever, patient be diagnosed with RSV concerning for possible pneumonia prompting this consultation. On today's evaluation that is 09/20/2024, Patient is afebrile patient is currently on 3 L current oxygen and breathing slightly comfortably P denies any chest pain no worsening cough no abdominal pain or diarrhea has been complaining of bruising to bilateral upper extremity from the blood draw. Patient white count is down to 17.4, creatinine is 1.18 Objective - Vital Signs Vital signs: Vital Signs Temp 97.5 F L 09/20/24 08:00 Pulse 64 09/20/24 12:25 Resp 16 09/20/24 11:49 BP 123/55 09/20/24 11:49 Pulse Ox 95 09/20/24 11:49 FiO2 Intake & Output 09/19/24 09/20/24 09/20/24 18:59 06:59 18:59 Intake Total 1800 240 598 Balance 1800 240 598 Weight 69.7 kg Intake: Oral 1800 240 598 Other: Voiding Method Toilet Toilet Toilet Bedside Commode Bedside Commode Bedside Commode # Voids 2 3 2 - Exam GENERAL DESCRIPTION: An elderly male lying in bed in no distress RESPIRATORY SYSTEM: Unlabored breathing , coarse breath sounds bilaterally HEART: S1 S2 regular rate and rhythm , ABDOMEN: Soft , no tenderness EXTREMITIES: No edema feet - Labs CBC & Chem 7: 09/20/24 07:43 09/20/24 07:43 Labs: Abnormal Lab Results - Last 24 Hours (Table) 09/19/24 09/19/24 09/20/24 Range/Units 16:16 20:28 05:59 WBC (3.8-10.6) k/uL MCV (80.0-100.0) fL MCHC (31.0-37.0) g/dL Neutrophils # (1.3-7.7) k/uL Lymphocytes # (1.0-4.8) k/uL Sodium (137-145) mmol/L BUN (9-20) mg/dL Glucose (74-99) mg/dL POC Glucose (mg/dL) 213 H 135 H 135 H (70-110) mg/dL 09/20/24 09/20/24 09/20/24 Range/Units 07:43 07:43 11:21 WBC 17.4 H (3.8-10.6) k/uL MCV 106.4 H (80.0-100.0) fL MCHC 30.6 L (31.0-37.0) g/dL Neutrophils # 15.8 H (1.3-7.7) k/uL Lymphocytes # 0.6 L (1.0-4.8) k/uL Sodium 136 L (137-145) mmol/L BUN 50 H (9-20) mg/dL Glucose 144 H (74-99) mg/dL POC Glucose (mg/dL) 147 H (70-110) mg/dL Assessment and Plan (1) Leukocytosis Current Visit: Yes Status: Acute Code(s): D72.829 - ELEVATED WHITE BLOOD CELL COUNT, UNSPECIFIED SNOMED Code(s): 846082283 (2) Community acquired pneumonia Current Visit: Yes Status: Acute Code(s): J18.9 - PNEUMONIA, UNSPECIFIED ORGANISM SNOMED Code(s): 471411575 (3) RSV bronchiolitis Current Visit: Yes Status: Acute Code(s): J21.0 - ACUTE BRONCHIOLITIS DUE TO RESPIRATORY SYNCYTIAL VIRUS SNOMED Code(s): 71199809 Plan: 1patient presented hospital with increasing shortness of breath cough which is likely multifactorial in this patient has been diagnosed with RSV and concern for possible component secondary to pneumonia 2-worsening leukocytosis more likely steroid related as no evidence of any worsening infection, patient white count is down to 17,000 today, to continue with Diflucan for possible oropharyngeal candidiasis along with Desitin swish and swallow and monitor clinical course closely Dictation was produced using [employer] software. please excuse any grammatical, word or spelling errors. Time with Patient: Less than 30
[2024-09-20 16:23] LABS: Glucose,Whole Blood 191 mg/dL (70-110)
[2024-09-20 20:31] LABS: Glucose,Whole Blood 187 mg/dL (70-110)
--- NOTE | 2024-09-20 20:42 | P.PN ---
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 Mancia. He also has prior history of COPD dyslipidemia hypertension osteoarthritis kyphoscoliosis. In 03/2023 he was admitted to the hospital for kyphoplasty. Postoperatively he had EKG changes and he had mild elevation of troponin and was treated for postoperative SD with medical management and IV heparin drip. His echo at that time showed preserved LV systolic function with inferior wall hypokinesis which appeared to be old. This time he presented to the hospital because of 2 to 3 days of increased worsening shortness of breath, cough and congestion. On admission she was no ticed to have RSV infection. Saturating 90% on 3 L nasal cannula, on admission there was also concerns of possible atrial fibrillation for which she was started on Cardizem drip and IV heparin drip. Cardiology was consulted for atrial fibrillation management. Admission Labs: Hb 15.8, BUN 17, creatinine 0.9, A1c 5.6, NT-proBNP 4700, troponins were negative, LDL 97, TSH is low at 0.3, free T4 is 1.5, RSV positive Admission EKG: Atrial fibrillation with heart rate 106 bpm, moderate intraventricular conduction delay. Nonspecific ST changes. Imaging: Chest x-ray does not show any signs of consolidation or congestion. Mild scarring noticed in right mid lung base. 09/16/2024 Patient examined this morning at bedside. Patient currently denies chest pain or pressure. He reports mild shortness of breath. He is currently on 6 L nasal cannula. Blood pressures remain elevated. Telemetry reveals sinus mechanism with a heart rate in the 90s. 09/17/2024 Patient examined this morning at the bedside. Patient currently denies chest pain or pressure. He denies shortness of breath. Blood pressure 146/63. He remains on 5 L nasal cannula. 09/18/2024 Cardiology was reconsulted secondary to A-fib with RVR. Patient was started on IV Cardizem. Patient remains in atrial fibrillation with heart rate in the 90s. He denies chest pain or pressure. Denies shortness of breath. 09/19/2024 Continues to be in atrial fibrillation, heart rate is better controlled, average heart rate around 80-100 bpm, BP 100/54. Blood pressure is much better improved, discontinue hydralazine 09/20/2024 Continues to be in atrial fibrillation, heart rates are controlled Blood pressure is low normal, appears euvolemic Anticipate discharge in next 24 hours. PHYSICAL EXAM: VITAL SIGNS: Reviewed. GENERAL: Well-developed in no acute distress. NECK: Supple. No JVD or thyromegaly LUNGS: Respirations even and unlabored. Lungs essentially clear to auscultation bilaterally. HEART: Irregular rate and rhythm. S1 and S2 heard. EXTREMITIES: Normal range of motion. No clubbing or cyanosis. Peripheral pulses intact. No lower extremity edema ASSESSMENT: # New onset atrial fibrillation with RVR, currently rate controlled # New worsening cardiomyopathy, likely stress-induced, EF 30 to 35%, likely due to below # RSV infection # Mild to moderate COPD # Prior history of CAD with known SOFTWARE TOOLS ENGINEER of RCA # Essential hypertension # Dyslipidemia PLAN: Continue current cardiac medications including Entresto, Eliquis, aspirin, Lipitor, Bumex, Farxiga, metoprolol xl 150 mg daily, and Aldactone Add oral amiodarone 400 mg twice daily for 7 days. After 1 week, decrease to 200 mg twice a day. Discontinue hydralazine Imdur, amlodipine because of borderline low blood pressure Anticipate discharge tomorrow a.m. Recommend outpatient follow-up with recommended ischemic evaluation on outpatient basis Objective - Vital Signs Vital signs: Vital Signs Temp 97.8 F 09/20/24 15:50 Pulse 90 09/20/24 15:50 Resp 18 09/20/24 15:50 BP 115/59 09/20/24 15:50 Pulse Ox 94 L 09/20/24 15:50 FiO2 Intake & Output 09/20/24 09/20/24 09/21/24 06:59 18:59 06:59 Intake Total 240 956 Balance 240 956 Weight 69.7 kg Intake: Oral 240 956 Other: Voiding Method Toilet Toilet Toilet Bedside Commode Bedside Commode Bedside Commode # Voids 3 2 - Labs CBC & Chem 7: 09/20/24 07:43 09/20/24 07:43 Labs: Abnormal Lab Results - Last 24 Hours (Table) 09/20/24 09/20/24 09/20/24 Range/Units 05:59 07:43 07:43 WBC 17.4 H (3.8-10.6) k/uL MCV 106.4 H (80.0-100.0) fL MCHC 30.6 L (31.0-37.0) g/dL Neutrophils # 15.8 H (1.3-7.7) k/uL Lymphocytes # 0.6 L (1.0-4.8) k/uL Sodium 136 L (137-145) mmol/L BUN 50 H (9-20) mg/dL Glucose 144 H (74-99) mg/dL POC Glucose (mg/dL) 135 H (70-110) mg/dL 09/20/24 09/20/24 09/20/24 Range/Units 11:21 16:22 20:29 WBC (3.8-10.6) k/uL MCV (80.0-100.0) fL MCHC (31.0-37.0) g/dL Neutrophils # (1.3-7.7) k/uL Lymphocytes # (1.0-4.8) k/uL Sodium (137-145) mmol/L BUN (9-20) mg/dL Glucose (74-99) mg/dL POC Glucose (mg/dL) 147 H 191 H 187 H (70-110) mg/dL
--- NOTE | 2024-09-21 05:11 | PN ---
PROGRESS NOTE DATE OF SERVICE: 09/20/2024 SUBJECTIVE: This is an 84-year-old gentleman, who was admitted with COPD exacerbation, also atrial fibrillation. The patient is being closely monitored. No chest pain. No palpitation. OBJECTIVE: VITAL SIGNS: Pulse 64, blood pressure 110/65, respirations 16. CHEST: A few scattered rhonchi and crackles. ABDOMEN: Soft. NERVOUS SYSTEM: Nonfocal. LABORATORY DATA: Noted. ASSESSMENT: 1. Chronic obstructive pulmonary disease acute exacerbation with acute respiratory syncytial infection with right lower lobe pneumonia. 2. Atrial fibrillation with fast ventricular rate. 3. Gastroesophageal reflux disease. 4. Multiple complex medical issues. RECOMMENDATIONS AND DISCUSSION: Recommend to continue current management and continue symptomatic treatment. Continue with bronchodilators. Increase ambulation. Possible discharge within the next 24 hours. Further recommendations to follow. MMODL / IJN: [id number] /
[2024-09-21 06:05] LABS: Glucose,Whole Blood 84 mg/dL (70-110)
--- NOTE | 2024-09-21 11:46 | P.PN ---
Subjective Progress Note Date: 09/21/24 Principal diagnosis: Reason for follow-up is RSV and leukocytosis Patient is a 84-year-old male with a past medical history significant for Atrial Fibrillation, Coronary Artery Disease (CAD), Cancer, COPD, GERD/Reflux, Hyperlipidemia, Hypertension, Myocardial Infarction (GA), Osteoarthritis (OA), Thyroid Disorder presenting to the hospital for evaluation of increasing shortness of breath cough and fever, patient be diagnosed with RSV concerning for possible pneumonia prompting this consultation. On today's evaluation that is 09/21/2024, patient has been afebrile, patient is breathing comfortably and is down to 2 L nasal cannula oxygen patient denies having any chest pain and cough has decreased in intensity, patient denies nausea vomiting or diarrhea and no abdominal pain. No new labs were drawn today Objective - Vital Signs Vital signs: Vital Signs Temp 98 F 09/20/24 20:00 Pulse 80 09/21/24 10:09 Resp 16 09/21/24 04:00 BP 127/76 09/21/24 04:00 Pulse Ox 94 L 09/21/24 04:00 FiO2 Intake & Output 09/20/24 09/21/24 09/21/24 18:59 06:59 18:59 Intake Total 956 236 Balance 956 236 Weight 69.4 kg Intake: Oral 956 236 Other: Voiding Method Toilet Toilet Bedside Commode Bedside Commode # Voids 2 2 - Exam GENERAL DESCRIPTION: An elderly male lying in bed in no distress RESPIRATORY SYSTEM: Unlabored breathing , coarse breath sounds bilaterally HEART: S1 S2 regular rate and rhythm , ABDOMEN: Soft , no tenderness EXTREMITIES: No edema feet - Labs CBC & Chem 7: 09/20/24 07:43 09/20/24 07:43 Labs: Abnormal Lab Results - Last 24 Hours (Table) 09/20/24 09/20/24 Range/Units 16:22 20:29 POC Glucose (mg/dL) 191 H 187 H (70-110) mg/dL Assessment and Plan (1) Leukocytosis Current Visit: Yes Status: Acute Code(s): D72.829 - ELEVATED WHITE BLOOD CELL COUNT, UNSPECIFIED SNOMED Code(s): 019280791 (2) Community acquired pneumonia Current Visit: Yes Status: Acute Code(s): J18.9 - PNEUMONIA, UNSPECIFIED ORGANISM SNOMED Code(s): 334063863 (3) RSV bronchiolitis Current Visit: Yes Status: Acute Code(s): J21.0 - ACUTE BRONCHIOLITIS DUE TO RESPIRATORY SYNCYTIAL VIRUS SNOMED Code(s): 94838502 (4) Thrush of mouth and esophagus Current Visit: Yes Status: Acute Code(s): B37.81 - CANDIDAL ESOPHAGITIS; B37.0 - CANDIDAL STOMATITIS SNOMED Code(s): 822781947 Plan: 1patient presented hospital with increasing shortness of breath cough which is likely multifactorial in this patient has been diagnosed with RSV and concern for possible component secondary to pneumonia 2-leukocytosis more likely steroid related as evidence of any worsening infection to continue with the nystatin swish and swallow for possible oropharyngeal candidiasis Dictation was produced using [employer] software. please excuse any grammatical, word or spelling errors.
[2024-09-21 12:07] LABS: Glucose,Whole Blood 154 mg/dL (70-110)
[2024-09-21 12:17] VITALS: TEMP 97.9
[2024-09-21 12:18] VITALS: BP 124/66; PULSE 85; RESP 16
--- NOTE | 2024-09-21 12:21 | P.PN ---
Subjective Progress Note Date: 09/21/24 HISTORY OF PRESENT ILLNESS: 83-year-old with possible history of CAD status post heart cath showing SUPERVISOR WHEEL SHOP of RCA by Dr. Mancia. He also has prior history of COPD dyslipidemia hypertension osteoarthritis kyphoscoliosis. In 03/2023 he was admitted to the hospital for kyphoplasty. Postoperatively he had EKG changes and he had mild elevation of troponin and was treated for postoperative ND with medical management and IV heparin drip. His echo at that time showed preserved LV systolic function with inferior wall hypokinesis which appeared to be old. This time he presented to the hospital because of 2 to 3 days of increased worsening shortness of breath, cough and congestion. On admission she was no ticed to have RSV infection. Saturating 90% on 3 L nasal cannula, on admission there was also concerns of possible atrial fibrillation for which she was started on Cardizem drip and IV heparin drip. Cardiology was consulted for atrial fibrillation management. Admission Labs: Hb 15.8, BUN 17, creatinine 0.9, A1c 5.6, NT-proBNP 4700, troponins were negative, LDL 97, TSH is low at 0.3, free T4 is 1.5, RSV positive Admission EKG: Atrial fibrillation with heart rate 106 bpm, moderate intraventricular conduction delay. Nonspecific ST changes. Imaging: Chest x-ray does not show any signs of consolidation or congestion. Mild scarring noticed in right mid lung base. 09/16/2024 Patient examined this morning at bedside. Patient currently denies chest pain or pressure. He reports mild shortness of breath. He is currently on 6 L nasal cannula. Blood pressures remain elevated. Telemetry reveals sinus mechanism with a heart rate in the 90s. 09/17/2024 Patient examined this morning at the bedside. Patient currently denies chest pain or pressure. He denies shortness of breath. Blood pressure 146/63. He remains on 5 L nasal cannula. 09/18/2024 Cardiology was reconsulted secondary to A-fib with RVR. Patient was started on IV Cardizem. Patient remains in atrial fibrillation with heart rate in the 90s. He denies chest pain or pressure. Denies shortness of breath. 09/19/2024 Continues to be in atrial fibrillation, heart rate is better controlled, average heart rate around 80-100 bpm, BP 100/54. Blood pressure is much better improved, discontinue hydralazine 09/20/2024 Continues to be in atrial fibrillation, heart rates are controlled Blood pressure is low normal, appears euvolemic Anticipate discharge in next 24 hours. 09/21 Patient seen and examined. Patient remains in atrial fibrillation with controlled ventricular rate. Patient states that he is feeling better. He sti ll has a cough and sputum production but his breathing is better. He denies any palpitations and no chest pain. Blood pressure 134/66, heart rate in the 70s, pulse ox 95% on 3 L nasal cannula. Patient has been afebrile. No repeat blood work available. Epeat blood work PHYSICAL EXAM: VITAL SIGNS: Reviewed. GENERAL: Well-developed in no acute distress. NECK: Supple. No JVD or thyromegaly LUNGS: Respirations even and unlabored. Lungs essentially clear to auscultation bilaterally. HEART: Irregular rate and rhythm. S1 and S2 heard. EXTREMITIES: Normal range of motion. No clubbing or cyanosis. Peripheral pulses intact. No lower extremity edema ASSESSMENT: # New onset paroxysmal atrial fibrillation with RVR, currently rate controlled # New worsening cardiomyopathy, likely stress-induced, EF 30 to 35%, likely due to below # RSV infection # Mild to moderate COPD # Prior history of CAD with known SUPERVISOR WHEEL SHOP of RCA # Essential hypertension # Dyslipidemia PLAN: Continue current cardiac medications including Entresto, Eliquis, aspirin, Lipitor, Bumex, Farxiga, metoprolol xl 150 mg daily, and Aldactone Continue oral amiodarone 400 mg twice daily for 7 days. After 1 week, decrease to 200 mg twice a day. Discontinue hydralazine Imdur, amlodipine because of borderline low blood pressure Recommend outpatient follow-up with recommended ischemic evaluation on outpatient basis. At the time of discharge, patient will follow-up with Dr. EVERETT Mancia. Nurse practitioner note has been reviewed, I agree with documented findings and plan of care. Patient was seen and examined. Objective - Vital Signs Vital signs: Vital Signs Temp 98 F 09/20/24 20:00 Pulse 89 09/21/24 04:00 Resp 16 09/21/24 04:00 BP 127/76 09/21/24 04:00 Pulse Ox 94 L 09/21/24 04:00 FiO2 Intake & Output 09/20/24 09/21/24 09/21/24 18:59 06:59 18:59 Intake Total 956 236 Balance 956 236 Weight 69.4 kg Intake: Oral 956 236 Other: Voiding Method Toilet Toilet Bedside Commode Bedside Commode # Voids 2 2 - Labs CBC & Chem 7: 09/20/24 07:43 09/20/24 07:43 Labs: Abnormal Lab Results - Last 24 Hours (Table) 09/20/24 09/20/24 09/20/24 Range/Units 11:21 16:22 20:29 POC Glucose (mg/dL) 147 H 191 H 187 H (70-110) mg/dL
--- NOTE | 2024-09-21 13:11 | P.PN ---
Subjective Progress Note Date: 09/21/24 The patient is seen today September 21, 2024 in follow-up on the selective care unit. He is recovering nicely from his COPD exacerbation and RSV infection. He denies any worsening shortness of breath, cough or congestion. He is maintaining O2 saturations in the 90s on 2 L/min per nasal cannula. He has been afebrile. Hemodynamically stable. Sputum culture was positive for Radha only. Blood cultures revealed no growth. Glucose 154. He remains on DuoNeb inhalations, Symbicort, prednisone taper. Anticoagulated with Eliquis. Continued on Diflucan. Remains on oral diuretics. Objective - Vital Signs Vital signs: Vital Signs Temp 97.9 F 09/21/24 09:25 Pulse 85 09/21/24 11:30 Resp 16 09/21/24 11:30 BP 124/66 09/21/24 11:30 Pulse Ox 93 L 09/21/24 11:30 FiO2 Intake & Output 09/20/24 09/21/24 09/21/24 18:59 06:59 18:59 Intake Total 956 236 Balance 956 236 Weight 69.4 kg Intake: Oral 956 236 Other: Voiding Method Toilet Toilet Toilet Bedside Commode Bedside Commode Bedside Commode # Voids 2 2 - Exam GENERAL EXAM: Alert, pleasant 84-year-old male, on 2 L nasal cannula, comfortable in no apparent distress. HEAD: Normocephalic. EYES: Normal reaction of pupils, equal size. NOSE: Clear with pink turbinates. THROAT: No erythema or exudates. NECK: No masses, no JVD. CHEST: No chest wall deformity. LUNGS: Equal air entry with few scattered rhonchi. CVS: S1 and S2 normal with no audible murmur, regular rhythm. ABDOMEN: No hepatosplenomegaly, normal bowel sounds, no guarding or rigidity. SPINE: No scoliosis or deformity SKIN: No rashes CENTRAL NERVOUS SYSTEM: No focal deficits, tone is normal in all 4 extremities. EXTREMITIES: There is no peripheral edema. No clubbing, no cyanosis. Peripheral pulses are intact. - Labs CBC & Chem 7: 09/20/24 07:43 09/20/24 07:43 Labs: Abnormal Lab Results - Last 24 Hours (Table) 09/20/24 09/20/24 09/21/24 Range/Units 16:22 20:29 11:56 POC Glucose (mg/dL) 191 H 187 H 154 H (70-110) mg/dL Assessment and Plan Assessment: Acute on chronic hypoxemic respiratory failure secondary to an acute exacerbation of chronic obstructive pulmonary disease complicated by RSV, systolic congestive heart failure, atrial fibrillation with RVR Acute RSV infection Acute exacerbation of systolic congestive heart failure. Repeat echocardiogram shows impairment LV function with an EF of around 30 to 35% New onset atrial fibrillation with a rapid ventricular response Mild troponin leak secondary to above Chronic obstructive pulmonary disease With home oxygen mainly at night Hypertension Hyperlipidemia Hypothyroidism Gastroesophageal reflux disease Plan: The patient was seen and evaluated Labs and medications reviewed Currently stable on 2 L/min per nasal cannula The patient has home oxygen and nebulizer Continue DuoNeb inhalations Continue Symbicort Continue the prednisone taper Anticoagulated with Eliquis Remains on amiodarone and metoprolol Continued on oral diuretics Home once cleared by cardiology This patient was seen by the pulmonary nurse practitioner addressing pulmonary issues I have personally seen and examined the patient, performed the documentation and the assessment and plan as written. Number of minutes spent on the visit: 24 Dictation was produced using [employer] dictation software. Please excuse any grammatical, word or spelling errors.
--- NOTE | 2024-09-22 10:27 | P.DS ---
Providers Date of admission: 09/12/24 17:37 Expected date of discharge: 09/21/24 Attending physician: Angie Esteves Consults: 09/12/24 17:37 Consult Physician Routine Consulting Provider: Chato Bowers Consult Reason/Comments: hypoxia Do you want consulting provider notified?: Yes 09/15/24 15:33 Consult Physician Urgent Consulting Provider: Chloe Caballero Consult Reason/Comments: rsv, pna Do you want consulting provider notified?: Yes Primary care physician: Francisco Barnes Hospital Course: Final diagnosis Chronic obstructive pulmonary disease acute exacerbation with acute RSV with right lower lobe pneumonia, possibly viral pneumonia and gram-negative pneumonia, present on admission History of atrial fibrillation maintained on Eliquis, currently in RVR transitioned off Cardizem drip will continue amiodarone taper Acute on chronic hypoxic respiratory failure Gastroesophageal reflux disease History of coronary artery disease History of previous myocardial infarction History of osteoarthritis History of thyroid disorder Hypertension Hyperlipidemia Degenerative joint disease history Former smoker History of colitis GI prophylaxis DVT prophylaxis Full code Discharge disposition Patient is being discharged in a stable condition with guarded prognosis to home. Patient will follow-up with Dr. Barnes in the outpatient setting upon discharge. Patient is to continue with current medications and prednisone taper and outpatient follow-up with cardiology, pulmonary as scheduled. Patient is continued on amiodarone taper per cardiology and will titrate per recom mendations. Patient also to continue a short course of antibiotics on discharge. Total time taken is greater than 35 minutes. Hospital course This is a 84-year-old male who was recently admitted with increased shortness of breath with COPD exacerbation also acute RSV with concerns of right lower lobe pneumonia being closely monitored. Patient was scheduled to be discharged early last week although went back into atrial fibrillation with RVR and placed back on Cardizem drip. Patient is continued on amiodarone and will continue taper per cardiology recommendations recommending close outpatient follow-up. Patient to follow-up with pulmonary as well. Patient has been cleared by consultations and has been instructed to follow-up with primary care provider this week. Please refer to consultation notes for further HPI. Currently no reports of chest pain, shortness of breath, or palpitations. Patient is afebrile. No reports of nausea or vomiting and patient is tolerating diet. Patient will be discharged home today. Guarded prognosis. High risk for readmissions given significant comorbidities Physical exam: Gen: This is a 84-year-old male who is awake, alert and oriented x 3, well- developed, thin build, elderly appearing HEENT: Head is atraumatic, normocephalic. Pupils equal, round. Sclerae is anicteric. NECK: Supple. No JVD. No lymphadenopathy. No thyromegaly. LUNGS: Diminished breath sounds bilaterally with some faint expiratory wheezes and coarse rhonchi. No intercostal retractions. HEART: S1, S2 are muffled ABDOMEN: Soft. Thin bowel sounds are present. No masses. No tenderness. EXTREMITIES: No pedal edema. No calf tenderness. NEUROLOGICAL: Patient is awake, alert and oriented x3. Cranial nerves 2 through 12 are grossly intact. Please refer to medication reconciliation sheet for a list of medications. The impression and plan of care has been dictated by María Holcomb, Nurse Practitioner as directed. Dr. Danielito MD I have performed a history and examination and MDM of this patient, discussed the same with the dictator, and agree with the dictator's assessment and plan as written ,documented as a scribe. Based on total visit time, I have performed more than 50% of the visit. Patient Condition at Discharge: Fair Plan - Discharge Summary Discharge Rx Participant: No New Discharge Prescriptions: New Ipratropium-Albuterol Nebulize [Duoneb 0.5 mg-3 mg/3 ml Soln] 3 ml INHALATION RT-TID #100 each Ipratropium-Albuterol Nebulize [Duoneb 0.5 mg-3 mg/3 ml Soln] 3 ml INHALATION RT-TID PRN each PRN Reason: Shortness Of Breath Or Wheezing Acetaminophen Tab [Tylenol] 650 mg PO Q6HR PRN tab PRN Reason: Mild Pain Or Fever > 100.5 Amiodarone [Cordarone] 400 mg PO BID 30 Days #70 tab Nystatin 100,000 Unit/ml Susp [Mycostatin Oral Susp] 500,000 unit PO QID 7 Days #240 ml Spironolactone [Aldactone] 25 mg PO DAILY #30 tab Apixaban [Eliquis] 5 mg PO BID #60 tab Sacubitril/Valsartan [Entresto 97 mg-103 mg Tablet] 1 each PO BID@0800,2000 #60 tab Dapagliflozin Propanediol [Farxiga] 10 mg PO DAILY #30 tab Atorvastatin [Lipitor] 40 mg PO HS #30 tab predniSONE See Taper PO DIRECTED #30 tab Levothyroxine Sodium [Synthroid] 25 mcg PO DAILY@0630 #30 tab cefuroxime axetiL [Ceftin] 500 mg PO BID 5 Days #10 tab Metoprolol Succinate (ER) [Toprol XL] 150 mg PO DAILY 30 Days #45 tab Continue Albuterol Sulfate [Ventolin HFA] 2 puff INHALATION RT-Q4H PRN PRN Reason: Shortness Of Breath Folic Acid 1 mg PO DAILY Fluticasone Propionate [Fluticasone Propionate [place] 50 mcg Nasal [place]] 2 spr EA NOSTRIL DAILY PRN PRN Reason: Allergy Symptoms Ubidecarenone [Coenzyme Q10] 200 mg PO DAILY Albuterol Inhaler [Ventolin Hfa Inhaler] 2 puff INHALATION RT-HS guaiFENesin 400 mg PO Q6H PRN PRN Reason: Congestion Omeprazole 20 mg PO DAILY Fluticasone/Umeclidin/Vilanter [Trelegy Ellipta 200-62.5-25] 1 puff INHALATION RT-DAILY Meclizine [Antivert] 25 mg PO TID PRN PRN Reason: dizzy/motion sickness sulfaSALAzine 1,000 mg PO BID Potassium Chloride [Klor-Con 10 ER] 1 tab PO TID Bumetanide 1 mg PO DAILY Aspirin [Adult Low Dose Aspirin EC] 81 mg PO DAILY Ezetimibe [Zetia] 10 mg PO HS Cyanocobalamin (Vitamin B-12) [Vitamin B-12] 5,000 mcg PO DAILY Multivit-Min/FA/Lycopen/Lutein [Centrum Silver Tablet] 1 tab PO DAILY Cholecalciferol [Vitamin D3 (25 Mcg = 1000 Iu)] 25 mcg PO DAILY Albuterol Nebulized [Ventolin Nebulized] 2.5 mg INHALATION RT-QID PRN PRN Reason: Shortness Of Breath Discontinued Levothyroxine Sodium [Synthroid] 50 mcg PO DAILY Metoprolol Succinate (ER) [Toprol XL] 100 mg PO HS Clopidogrel [Plavix] 75 mg PO DAILY Axtell-3 600mg 1 cap PO DAILY Valsartan 320 mg PO DAILY Rosuvastatin [Crestor] 10 mg PO Q2D Discharge Medication List Albuterol Sulfate [Ventolin HFA] 2 puff INHALATION RT-Q4H PRN 03/22/23 [History] Aspirin [Adult Low Dose Aspirin EC] 81 mg PO DAILY 03/22/23 [History] Bumetanide 1 mg PO DAILY 03/22/23 [History] Fluticasone Propionate [Fluticasone Propionate [place] 50 mcg Nasal [place]] 2 spr EA NOSTRIL DAILY PRN 03/22/23 [History] Fluticasone/Umeclidin/Vilanter [Trelegy Ellipta 200-62.5-25] 1 puff INHALATION RT-DAILY 03/22/23 [History] Folic Acid 1 mg PO DAILY 03/22/23 [History] Meclizine [Antivert] 25 mg PO TID PRN 03/22/23 [History] Omeprazole 20 mg PO DAILY 03/22/23 [History] Potassium Chloride [Klor-Con 10 ER] 1 tab PO TID 03/22/23 [History] sulfaSALAzine 1,000 mg PO BID 03/22/23 [History] Albuterol Inhaler [Ventolin Hfa Inhaler] 2 puff INHALATION RT-HS 09/12/24 [History] Albuterol Nebulized [Ventolin Nebulized] 2.5 mg INHALATION RT-QID PRN 09/12/24 [History] Cholecalciferol [Vitamin D3 (25 Mcg = 1000 Iu)] 25 mcg PO DAILY 09/12/24 [History] Cyanocobalamin (Vitamin B-12) [Vitamin B-12] 5,000 mcg PO DAILY 09/12/24 [History] Ezetimibe [Zetia] 10 mg PO HS 09/12/24 [History] Multivit-Min/FA/Lycopen/Lutein [Centrum Silver Tablet] 1 tab PO DAILY 09/12/24 [History] Ubidecarenone [Coenzyme Q10] 200 mg PO DAILY 09/12/24 [History] guaiFENesin 400 mg PO Q6H PRN 09/12/24 [History] Acetaminophen Tab [Tylenol] 650 mg PO Q6HR PRN tab 09/17/24 [Rx] Apixaban [Eliquis] 5 mg PO BID #60 tab 09/17/24 [Rx] Atorvastatin [Lipitor] 40 mg PO HS #30 tab 09/17/24 [Rx] Dapagliflozin Propanediol [Farxiga] 10 mg PO DAILY #30 tab 09/17/24 [Rx] Ipratropium-Albuterol Nebulize [Duoneb 0.5 mg-3 mg/3 ml Soln] 3 ml INHALATION RT-TID #100 each 09/17/24 [Rx] Ipratropium-Albuterol Nebulize [Duoneb 0.5 mg-3 mg/3 ml Soln] 3 ml INHALATION RT-TID PRN each 09/17/24 [Rx] Levothyroxine Sodium [Synthroid] 25 mcg PO DAILY@0630 #30 tab 09/17/24 [Rx] Sacubitril/Valsartan [Entresto 97 mg-103 mg Tablet] 1 each PO BID@08,1999 #60 tab 09/17/24 [Rx] Spironolactone [Aldactone] 25 mg PO DAILY #30 tab 09/17/24 [Rx] cefuroxime axetiL [Ceftin] 500 mg PO BID 5 Days #10 tab 09/17/24 [Rx] predniSONE See Taper PO DIRECTED #30 tab 09/17/24 [Rx] Amiodarone [Cordarone] 400 mg PO BID 30 Days #70 tab 09/21/24 [Rx] Metoprolol Succinate (ER) [Toprol XL] 150 mg PO DAILY 30 Days #45 tab 09/21/24 [Rx] Nystatin 100,000 Unit/ml Susp [Mycostatin Oral Susp] 500,000 unit PO QID 7 Days #240 ml 09/21/24 [Rx] Follow up Appointment(s)/Referral(s): Grover Mancia MD [STAFF PHYSICIAN] - 10/05/24 2:15 pm Francisco Barnes MD [Primary Care Provider] - 1-2 days (Office will call you with an appointment time and date. ) Chato Bowers DO [Doctor of Osteopathic Medicine] - 10/12/24 2:00 pm Patient Instructions/Handouts: A-fib (Atrial Fibrillation) (DC), Respiratory Syncytial Virus (DC), COPD (Chronic Obstructive Pulmonary Disease) (DC) Activity/Diet/Wound Care/Special Instructions: Activity limited until follow-up Follow-up with primary care provider on discharge Follow-up with pulmonary outpatient Follow-up with cardiology outpatient Continue taking medications as prescribed Continue with humidification with your oxygen supply and avoid picking or blowing your nose abruptly and harshly as you are on blood thinners and are at increased risk of nosebleeds Continue with breathing treatments [id number] and inhalers Continue prednisone taper on discharge until finished Continue wearing a mask when out and about and frequent handwashing Any of your tubing at home should be replaced for your oxygen and nebulized treatments Discharge Disposition: HOME SELF-CARE
== END 2024-09-21 16:21 | disposition home or self-care (01) | DRG 177 ==
LOC: EC 15:50 → 4SSUR 17:37 → 3SCARD 20:13 → 4SSUR 09-13 07:21 → 3SCARD 09-13 08:58
PROVIDERS: ADMIT Hospitalist; ATTEND Hospitalist
DX: J15.69 Pneumonia due to other Gram-negative bacteria (principal); I50.43 Acute on chronic combined systolic (congestive) and diastolic (congestive) heart failure; J96.21 Acute and chronic respiratory failure with hypoxia; B37.0 Candidal stomatitis; B37.81 Candidal esophagitis; J44.0 Chronic obstructive pulmonary disease with (acute) lower respiratory infection; I11.0 Hypertensive heart disease with heart failure; E03.9 Hypothyroidism, unspecified; I42.9 Cardiomyopathy, unspecified; J44.1 Chronic obstructive pulmonary disease with (acute) exacerbation; J21.0 Acute bronchiolitis due to respiratory syncytial virus; I48.0 Paroxysmal atrial fibrillation; J12.1 Respiratory syncytial virus pneumonia; Z87.891 Personal history of nicotine dependence; E78.5 Hyperlipidemia, unspecified; I25.10 Atherosclerotic heart disease of native coronary artery without angina pectoris; I25.2 Old myocardial infarction; I25.82 Chronic total occlusion of coronary artery; R79.89 Other specified abnormal findings of blood chemistry; I45.9 Conduction disorder, unspecified; K21.9 Gastro-esophageal reflux disease without esophagitis; M19.90 Unspecified osteoarthritis, unspecified site; M41.9 Scoliosis, unspecified; Z20.822 Contact with and (suspected) exposure to COVID-19; Z71.3 Dietary counseling and surveillance; Z79.01 Long term (current) use of anticoagulants; Z79.02 Long term (current) use of antithrombotics/antiplatelets; Z79.51 Long term (current) use of inhaled steroids; Z79.890 Hormone replacement therapy; Z79.84 Long term (current) use of oral hypoglycemic drugs; Z79.899 Other long term (current) drug therapy; Z85.828 Personal history of other malignant neoplasm of skin; Z99.81 Dependence on supplemental oxygen
CPT/HCPCS: 36415; 71045; 71046; 80048; 80053; 80061; 83036; 83605; 83735; 83880; 84100; 84145; 84439; 84443; 84484; 85025; 85379; 85610; 85730; 87040; 87070; 87205; 87449; 87636; 93005; 93306; 94640; 94760; 96361; 96365; 96366; 96367; 96368; 96375; 99291